=== PATIENT | female | born 1965 | race Caucasian/White ===

== ENCOUNTER → 2018-06-11 09:52 | Outpatient (CLI) | payer BC, SELFPAY ==
[2018-06-11 11:04] LABS: Absolute Lymphocyte Count 1.72 X10^3/ul (0.83-4.51); Absolute Neutrophil Count 4.9 X10^3/uL (2.0-7.7); Basophil# 0.05 X10^3/uL; Basophil% 0.7 % (0-1); Eosinophil# 0.11 X10^3/uL; Eosinophils% 1.5 % (0-5); Hematocrit 45.3 % (37-47); Lymphocyte # 1.72 X10^3/ul (4.0); Lymphocyte % 23.2 % (19-41); Mean Corp Hgb Conc 33.1 g/gl (32-36); Mean Corpuscular Hgb 30.7 pg (27.0-32.0); Mean Corpuscular Volume 92.8 fL (81-99); Monocyte# 0.61 X10^3/uL; Monocyte% 8.2 % (0-10); Neutrophil % 66.3 % (47-70); Platelet Count 162 K/mm3 (150-450); RBC Distribution Width SD 46.3 fl (35.1-43.9); Red Blood Count 4.88 M/mm3 (4.2-5.4); White Blood Count 7.4 K/mm3 (4.4-11.0)
[2018-06-11 11:12] LABS: POSITIVE COUNT NO; POSITIVE DIFFERENTIAL NO; POSITIVE MORPHOLOGY NO
[2018-06-11 11:34] LABS: Anion Gap 3 (5-15); BUN 16 mg/dL (7-18); BUN/Creat Ratio 17.3 RATIO (10-20); Calcium,Total 8.6 mg/dL (8.5-10.1); Chloride 104 mmol/L (98-107); Cholesterol 201 mg/dL (200); Creatinine, Serum 0.92 mg/dL (0.55-1.02); EST Glomerular Filtration Rate 67 mL/min (>60); Est Glom Filt Rate - Afr Amer 81 mL/min (>60); Glucose 131 mg/dL (74-106); High Density Lipoprotein 43 mg/dL; Potassium 3.8 mmol/L (3.5-5.1); Sodium Level 140 mmol/L (136-145); Triglycerides 150 mg/dL; Very Low Density Lipoprotein 30 mg/dL (5-40)
== END ==
PROVIDERS: Family Provider Family Medicine; PCP Family Medicine; Referring Provider Family Medicine; Visit Provider Family Medicine
DX: K29.70 Gastritis, unspecified, without bleeding (principal); E03.9 Hypothyroidism, unspecified; Z13.220 Encounter for screening for lipoid disorders
CPT/HCPCS: 36415; 80048; 80061; 84443; 85025

== ENCOUNTER → 2018-12-10 09:10 | Outpatient (CLI) | payer BC, SELFPAY ==
[2018-12-10 10:17] LABS: Hematocrit 46.5 % (37-47); Hemoglobin 15.2 g/dl (12.0-15.0); Mean Corp Hgb Conc 32.7 g/gl (32-36); Mean Corpuscular Hgb 29.9 pg (27.0-32.0); Mean Corpuscular Volume 91.5 fL (81-99); Mean Platelet Vol. 12.9 fl (6.2-12.0); Platelet Count 222 K/mm3 (150-450); RBC Distribution Width CV 13.9 % (11.6-14.6); RBC Distribution Width SD 46.2 fl (35.1-43.9); Red Blood Count 5.08 M/mm3 (4.2-5.4); White Blood Count 8.6 K/mm3 (4.4-11.0)
[2018-12-10 10:19] LABS: Scan Indicated on CBC? Y/N NO
== END ==
PROVIDERS: Family Provider Family Medicine; PCP Family Medicine; Referring Provider Family Medicine; Visit Provider Family Medicine
DX: K29.70 Gastritis, unspecified, without bleeding (principal)
CPT/HCPCS: 36415; 85027

== ENCOUNTER → 2018-12-16 14:27 | Outpatient (CLI) | payer BC, SELFPAY ==
[2018-12-16 17:00] LABS: Anion Gap 5 (5-15); BUN 14 mg/dL (7-18); BUN/Creat Ratio 18.7 RATIO (10-20); Calcium,Total 8.7 mg/dL (8.5-10.1); Chloride 107 mmol/L (98-107); Cholesterol 191 mg/dL (200); Creatinine, Serum 0.75 mg/dL (0.55-1.02); EST Glomerular Filtration Rate 86 mL/min (>60); Est Glom Filt Rate - Afr Amer 103 mL/min (>60); Free T3 2.5 pg/mL (2.18-3.98); Glucose 65 mg/dL (74-106); High Density Lipoprotein 35 mg/dL; Sodium Level 141 mmol/L (136-145); Thyroid Stim Hormone (TSH) 3.69 uIU/mL (0.358-3.74); Triglycerides 217 mg/dL; Very Low Density Lipoprotein 43 mg/dL (5-40)
[2018-12-16 17:40] LABS: Vitamin D,25 Hydroxy 11.1 ng/mL (29.95-100.01)
== END ==
PROVIDERS: Family Provider Family Medicine; PCP Family Medicine; Referring Provider Family Medicine; Visit Provider Family Medicine
DX: Z00.00 Encounter for general adult medical examination without abnormal findings (principal); E03.9 Hypothyroidism, unspecified
CPT/HCPCS: 36415; 80048; 80061; 82306; 84436; 84443; 84481

== ENCOUNTER 2019-05-10 07:56 | Observation (INO) | payer SELFPAY ==
[2019-05-10] VITALS (8 sets, daily range): BP systolic 103–148; BP diastolic 61–86; PULSE 74–98; RESP 13–22; TEMP 36.7–36.8; O2SAT 95–98; BMI 26.4; BMI 23.8; BMI 23.9
--- NOTE | 2019-05-10 08:22 | EKG12_ITS ---
Test Reason : CP Blood Pressure : / mmHG Vent. Rate : 082 BPM Atrial Rate : 082 BPM P-R Int : 154 ms QRS Dur : 078 ms QT Int : 374 ms P-R-T Axes : 066 072 081 degrees QTc Int : 436 ms Normal sinus rhythm Possible Anterior infarct , age undetermined Abnormal ECG Confirmed by MARYBETH LAMBERT ([id number]), script editor DARLYN PRESLEY ([id number]) on 05/15/2019 2:50:19 PM Referred By: Cezar Cason Confirmed By:MARYBETH LAMBERT
--- NOTE | 2019-05-10 08:22 | ED.VIS.CHEST ---
History of Present Illness Chief Complaint: Chest Pain Informant: Patient Narrative: Patient presented for evaluation secondary to chest pain. Patient reports that since about midnight tonight she has been dealing with chest pain. She describes it as a heaviness type sensation. It has been persistent, and had some relief around 8 AM, but is still going on. Patient states that associated with feelings of shortness of breath and lightheadedness as well as sweatiness. She is never really had any prior similar episodes in the past. Patient has a family history of premature cardiac disease and a personal history of smoking. She denies any history of hypertension hyperlipidemia or diabetes. She denies any DVT or PE risk factors. She is never had a stress test or heart catheterization. Review of systems otherwise negative. Past Medical History - Allergies and Home Meds Allergies/Adverse Reactions: Allergies No Known Allergies Allergy (Verified 05/10/19 07:56) Primary Care Physician: Luciano Gonzalez MD [Primary Care Provider] - Past Medical History: None Smoking Status: Current every day smoker Review of Systems All systems negative except as indicated Cardiovascular: Reports: Chest pain Respiratory: Reports: Dyspnea, Cough Gastrointestinal: Reports: Nausea Physical Exam Vital Signs/Narrative: Vital Signs Temp Pulse Resp BP Pulse Ox 05/10/19 07:58 98.2 F 98 22 H 148/86 H 98 Inital Vital Signs reviewed: Yes General: Well nourished, Well developed, No Acute Distress Head: Normocephalic, Atraumatic Eyes: Perrl, EOMI ENT: Moist mucous membranes, No rhinorrhea Neck: Supple, Nontender Cardiovascular: Regular rate, Regular rhythm, No murmurs Respiratory: No distress, CTA bilaterally, Chest nontender Abdomen: Soft, Nontender, Nondistended, Normal bowel sounds Back: Nontender, Normal Inspection Extremities: Nontender, No edema Skin: Normal color, No rash Neurological: Alert, Oriented x3, Cranial nerves II-XII grossly intact, Normal Strength, Normal Sensation Psychological: Normal affect, Normal Mood Diagnostic/Tx/Re-eval Chest X-Ray - ED: - - PA and lateral chest x-ray negative by my personal interpretation as well as radiology - EKG Initial EKG Interpretation: - - Sinus rhythm of [address] segments, normal T waves, anterior Q waves are noted, no evidence of acute ischemia or arrhythmia. - Medical Decision Making Patient presented secondary to chest pain. Work-up was obtained. CBC chemistry and troponin were found to be unremarkable. EKG and chest x-ray were found to be unremarkable. Patient's pain did improve with nitroglycerin. Her heart score is a 4, I believe that she requires admission. I discussed this with the hospitalist and the patient was admitted. ED Disposition - Plan for ED Patient: Disposition: Acute Care Hospital [facility] Diagnosis: Chest pain
--- NOTE | 2019-05-10 08:24 | NURSING ---
NO OLD EKGS
[2019-05-10 08:37] LABS: Absolute Lymphocyte Count 2.07 X10^3/uL (0.83-4.51); Absolute Neutrophil Count 4.2 X10^3/uL (2.0-7.7); Basophil# 0.06 X10^3/uL; Basophil% 0.8 % (0-1); Eosinophil# 0.13 X10^3/uL; Eosinophils% 1.8 % (0-5); Hematocrit 49.7 % (37-47); Hemoglobin 16.5 g/dL (12.0-15.0); Lymphocyte # 2.07 X10^3/ul (4.0); Lymphocyte % 28.9 % (19-41); Mean Corp Hgb Conc 33.2 g/dL (32-36); Mean Corpuscular Hgb 29.9 pg (27.0-32.0); Mean Corpuscular Volume 90.2 fL (81-99); Mean Platelet Vol. 12.4 fl (6.2-12.0); Monocyte# 0.73 X10^3/uL; Monocyte% 10.2 % (0-10); NRBC Flagged by Analyzer 0 % (0-5); Neutrophil # 4.15 X10^3/uL (2.7-7.7); Neutrophil % 57.9 % (47-70); Platelet Count 204 K/mm3 (150-450); RBC Distribution Width SD 46.5 fl (35.1-43.9); Red Blood Count 5.51 M/mm3 (4.2-5.4); White Blood Count 7.2 K/mm3 (4.4-11.0)
--- NOTE | 2019-05-10 08:40 | RAD_ITS ---
STUDY: X-RAY CHEST REASON FOR EXAM: Female, 54 years old. Chest pain. TECHNIQUE: PA and lateral views of the chest. COMPARISON: None. FINDINGS: EKG electrodes are seen. Hyperinflation. The lungs are clear. Pectus excavatum deformity. There is no demonstrated pleural abnormality. Normal size heart. Normal mediastinum and jack. Normal visualized pulmonary arteries. Normal visualized aortic arch and descending thoracic aorta. Normal visualized thoracic spine. Prior fusion in the lower cervical spine. There is no demonstrated abnormality of the visualized soft tissue structures of the upper abdomen. RAD/Chest PA and Lateral IMPRESSION: Hyperinflation. The lungs are clear. Electronically Signed: Rogelio Rogers, at 9:09 EDT , Service support ,
[2019-05-10 08:50] LABS: Anion Gap 6 (5-15); BUN 11 mg/dL (7-18); BUN/Creat Ratio 11.9 RATIO (10-20); Calcium,Total 9.3 mg/dL (8.5-10.1); Chloride 109 mmol/L (98-107); Creatinine, Serum 0.92 mg/dL (0.55-1.02); EST Glomerular Filtration Rate 67 mL/min (>60); Est Glom Filt Rate - Afr Amer 81 mL/min (>60); Estimated Creatinine Clearance 57.15 ml/min; Glucose 123 mg/dL (74-106); Potassium 4.2 mmol/L (3.5-5.1); Sodium Level 143 mmol/L (136-145)
[2019-05-10] MEDS: Aspirin 81 MG TAB.CHEW 324 MG PO (08:55)
[2019-05-10] MEDS: Nitroglycerin SL (ED/IMG/CATH) 0.4 MG TABLET SUBLINGUAL ×3 (08:55→09:19)
--- NOTE | 2019-05-10 09:35 | NURSING ---
DR PINON IN ER
--- NOTE | 2019-05-10 09:50 | NURSING ---
SCOOTERU OBS KAMALJIT PINON
--- NOTE | 2019-05-10 09:53 | ED.RN ---
dr. voss in at bedside examining pt. waiting for floor and admission orders.
--- NOTE | 2019-05-10 10:25 | EKG12_ITS ---
Test Reason : ACID/INDIGESTION Blood Pressure : / mmHG Vent. Rate : 064 BPM Atrial Rate : 064 BPM P-R Int : 182 ms QRS Dur : 066 ms QT Int : 398 ms P-R-T Axes : 042 046 064 degrees QTc Int : 410 ms Normal sinus rhythm Possible Anteroseptal infarct , age undetermined Abnormal ECG When compared with ECG of 10-MAY-2019 10:41, MANUAL COMPARISON REQUIRED, DATA IS UNCONFIRMED Confirmed by ISAIAH KABA, KARI ([id number]), editorial clerk DARLYN PRESLEY ([id number]) on 05/15/2019 3:15:47 PM Referred By: Cezar Cason Confirmed By:KHLOE COLON MD
[2019-05-10] MEDS: Levothyroxine 88 MCG Tablet PO (10:48)
[2019-05-10] MEDS: Morphine 4 MG/ML Syringe IV (10:48)
[2019-05-10] MEDS: 0.9% NaCl Peripheral Flush Adult/Peds IV ×2 (10:50→16:46)
[2019-05-10] MEDS: Clindamycin HCl 150 MG Capsule 300 MG PO ×4 (11:34→21:40)
--- NOTE | 2019-05-10 20:17 | PCM.HP.STD ---
Problem List (1) Chest pain Status: Acute Qualifiers: Chest pain type: precordial pain Qualified Code(s): R07.2 - Precordial pain History of Present Illness Date of Admission: 05/10/19 Chief Complaint: Chest pain The patient is a 54 year old F who was seen in the emergency room at [facility] today with chief complaint of chest pain which she describes as pressure-like in nature radiating into her right jaw area that started just after midnight on 05/10/2019. Patient tells this examiner that the chest discomfort is been continuous although it lessens somewhat when she was given nitroglycerin in the emergency room today. Patient denies any shortness of breath, she does admit to a cough with clear sputum production, she denies any fever or chills. Work-up in the emergency room included a chest x-ray which was unremarkable, patient's cardiac enzymes were unremarkable, EKG showed a normal sinus rhythm without evidence of ischemic changes, labs were remarkable for hemoglobin is 16.5. Patient will be placed in observation status for chest pain, cardiac enzymes will be cycled and she will be monitored on telemetry. If enzymes remain normal, she will undergo a nuclear exercise stress test tomorrow. 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 Lives: Spouse/ Significant Other Smoking Status: Current every day smoker Tobacco Use: Cigarettes Alcohol: Occasional Drugs: None - *Family History Maternal History Items: Diabetes, Heart Disease Paternal History Items: COPD Review of Systems Constitutional: Denies: Anorexia, Chills, Fever, Night Sweats, Malaise, Weakness, Weight Change, Fatigue Eyes: Denies: Cataracts, Conjunctivae Inflammation, Double vision, Drainage HEENT: Denies: Difficulty Swallowing, Dysphasia, Ear Pain, Eye Pain, Hearing Changes, Nasal bleeding, Nasal Congestion, Post Nasal Drip Cardiovascular: Reports: Chest Pain, Chest Pressure. Denies: Claudication, Chest Tightness, Edema, Heaviness, Orthopnea, Palpitations, Paroxysmal Noc. Dyspnea Respiratory: Denies: Cough, Hemoptysis, Pleuritic Pain, Shortness of Breath, Shortness of breath at rest, Shortness of breath upon exertion Gastrointestinal: Denies: Abdominal Pain, Constipation, Diarrhea, Hematemesis, Hematochezia, Nausea, Melena, Vomiting Genitourinary: Denies: Dysuria, Frequency, Hematuria, Hesitancy, Urgency Gynecological: Denies: Breast symptoms Musculoskeletal: Denies: Back Pain, Foot Pain, Hand Pain, Joint Pain, Joint stiffness, Joint swelling, Joint Tenderness, Leg Pain Skin: Denies: Dryness, Jaundice, Pruritis, Rash Neurological: Denies: Blurred vision, Double vision, Slurred speech, Difficulty swallowing, Focal weakness, Numbness, Tingling Psychiatric: Denies: Anxiety, Depression, Homicidal Ideations, Suicidal Ideations Endocrine: Denies: Change in Body Habitus, Heat/ Cold Intolerance, Polydipsia, Polyuria Hematologic/ Lymphatic: Denies: Adenopathy, Anemia, Easy Bruising, Easy Bleeding, Petechiae, Purpura VTE Information - Inpt Only VTE Present on Admission: No VTE Mechan Device Prophylaxis: None VTE Pharm Prophylaxis ordered?: Yes - Physical Exam General: Alert, Oriented x3, Cooperative HEENT: Atraumatic, PERRLA, EOMI, Normocephalic Oral: Moist Mucosa Neck: Supple, No JVD, Negative Carotid Bruits Lungs: Clear to auscultation, Normal air movement Cardiovascular: Regular rate, No murmurs Abdomen: Bowel Sounds Present, Soft, Non Tender, Non-Distended Extremities: No clubbing, No cyanosis, No edema, Capillary Refill Less than 3 Seconds Skin: No rashes, No breakdown Musculoskeletal: No Tenderness to Palpation of Joints or Extremities Neurological: Cranial nerves II-XII grossly intact, Neuro grossly intact, Sensory exam intact to light touch and pain, Coordination normal Psych/Mental Status: Normal Affect, Appropriate, Alert and oriented to time, place, person, mood and affect Vital Signs Temp Pulse Resp BP Pulse Ox 98.1 F 74 16 112/61 97 05/10/19 16:10 05/10/19 19:00 05/10/19 16:10 05/10/19 16:10 05/10/19 16:10 Oxygen Flow Rate (L/min) 2 Oxygen Delivery Method Room Air Weight: 61.1 kg Body Mass Index (BMI) 23.8 Intake and Output for Last 24 Hours 05/08/19 05/09/19 05/10/19 23:59 23:59 23:59 Intake Total 720 / 720 Balance 720 / 720 Laboratory Tests Past 24 Hrs 05/10/19 05/10/19 05/10/19 08:10 08:10 11:15 WBC 7.2 RBC 5.51 H Hgb 16.5 H Hct 49.7 H MCV 90.2 MCH 29.9 MCHC 33.2 RDW Std Deviation 46.5 H RDW Coeff of Joellen 14.0 Plt Count 204 MPV 12.4 H Immature Gran % (Auto) 0.400 Neut % (Auto) 57.9 Lymph % (Auto) 28.9 [place] % (Auto) 10.2 H Eos % (Auto) 1.8 Baso % (Auto) 0.8 Absolute Neuts (auto) 4.2 Absolute Lymphs (auto) 2.07 Nucleated RBC % 0 Sodium 143 Potassium 4.2 Chloride 109 H Carbon Dioxide 28.0 Anion Gap 6 BUN 11 Creatinine 0.92 Estim Creat Clear Calc 57.15 Est GFR (MDRD) Af Amer 81 Est GFR (MDRD) Non-Af 67 BUN/Creatinine Ratio 11.9 Glucose 123 H Calcium 9.3 Troponin I < 0.015 < 0.015 05/10/19 14:13 WBC RBC Hgb Hct MCV MCH MCHC RDW Std Deviation RDW Coeff of Joellen Plt Count MPV Immature Gran % (Auto) Neut % (Auto) Lymph % (Auto) [place] % (Auto) Eos % (Auto) Baso % (Auto) Absolute Neuts (auto) Absolute Lymphs (auto) Nucleated RBC % Sodium Potassium Chloride Carbon Dioxide Anion Gap BUN Creatinine Estim Creat Clear Calc Est GFR (MDRD) Af Amer Est GFR (MDRD) Non-Af BUN/Creatinine Ratio Glucose Calcium Troponin I < 0.015 Assessment/Plan All Active Problems Chest pain (Acute) #1 chest pain-etiology unclear at this point, patient will be placed in observation status on PCU, serial enzymes will be drawn, if these enzymes are negative patient will undergo an exercise nuclear stress test the following day. #2 hypothyroidism #3 recent sinus infection-present on admission, on outpatient antibiotic treatment Code Visit OBSV E&M: 87105 Initial observation care L3
--- NOTE | 2019-05-10 20:50 | EKG12_ITS ---
Test Reason : CP Blood Pressure : / mmHG Vent. Rate : 073 BPM Atrial Rate : 073 BPM P-R Int : 180 ms QRS Dur : 062 ms QT Int : 386 ms P-R-T Axes : 074 070 077 degrees QTc Int : 425 ms Normal sinus rhythm Anteroseptal infarct , age undetermined Abnormal ECG When compared with ECG of 10-MAY-2019 08:01, MANUAL COMPARISON REQUIRED, DATA IS UNCONFIRMED Confirmed by ISAIAH KABA, KARI ([id number]), editor trade journal DARLYN PRESLEY ([id number]) on 05/15/2019 3:16:51 PM Referred By: Cezar Cason Confirmed By:KHLOE COLON MD
[2019-05-10] MEDS: Mag Hydrox/Al Hydrox/Simeth 30 ML UDC PO (21:40)
[2019-05-11 03:00] VITALS: PULSE 82
[2019-05-11 03:40] VITALS: BP 116/69; PULSE 82; RESP 16; TEMP 36.6; O2SAT 93
[2019-05-11 05:00] VITALS: BP 117/73; PULSE 75; RESP 16; TEMP 36.8; O2SAT 93
--- NOTE | 2019-05-11 05:55 | EKG12_ITS ---
Test Reason : AM EKG Blood Pressure : / mmHG Vent. Rate : 071 BPM Atrial Rate : 071 BPM P-R Int : 192 ms QRS Dur : 070 ms QT Int : 386 ms P-R-T Axes : 074 044 061 degrees QTc Int : 419 ms Normal sinus rhythm Anteroseptal infarct , age undetermined Abnormal ECG When compared with ECG of 10-MAY-2019 21:11, MANUAL COMPARISON REQUIRED, DATA IS UNCONFIRMED Confirmed by ISAIAH KABA, KARI ([id number]), book editor DARLYN PRESLEY ([id number]) on 05/15/2019 3:13:59 PM Referred By: Cezar Cason Confirmed By:KHLOE COLON MD
[2019-05-11] MEDS: Levothyroxine 88 MCG Tablet PO (05:56)
[2019-05-11 09:03] VITALS: PULSE 86
--- NOTE | 2019-05-11 10:14 | STRESSREP_ITS ---
Stress Test Report Date: May 11, 2019 Procedure: Exercise tolerance test/imaging study Indications: Chest pain Consent: Per the patient Procedure: The patient exercised on a Chase protocol for 7 minutes and 9 seconds achieving a peak heart rate of 142 bpm (86 % predicted maximal heart rate) with a peak blood pressure 122/76 mmHg and a peak MET capacity of 8.7 METs. The baseline ECG demonstrated normal sinus rhythm, possible prior anterior DC. The peak exercise ECG demonstrated no significant ischemic changes. EKG during recovery revealed no significant ischemic changes [There were no cardiac dysrhythmias pretest, during exercise, or recovery]. The functional capacity was considered normal for age. There was [no complaint of chest discomfort during exercise or recovery]. The examination was discontinued secondary to dyspnea, leg discomfort. Impression: 1. Technically adequate (percent predicted maximal heart rate greater than 85%) exercise tolerance test 2. Stress test is negative for exercise-induced EKG changes of ischemia 3. The test test is negative for exercise-induced chest pain 4. Functional capacity is normal for age 5. Nuclear images pending Myocardial perfusion imaging study: Technique: The patient was injected with 11.1 mCi of technetium 99m Cardiolite and subsequently rest SPECT Cardiolite nuclear imaging was obtained in the horizontal long, vertical long, and short axis views. The patient exercised on a Chase protocol. Please see above for details. The patient was injected with 32.3 mCi of technetium 99m Cardiolite and subsequently stress SPECT Cardiolite nuclear imaging was obtained in the horizontal long, vertical long, and short axis views. A gated Cardiolite study at peak stress was obtained. Interpretation: Rest and stress SPECT Cardiolite nuclear imaging status post realignment, normalization, and attenuation correction, demonstrates normal myocardial radioisotope uptake on the rest and stress images. The gated Cardiolite study demonstrates no significant regional wall motion abnormalities. The reported LVEF is greater than 70 %. Impression: 1. There is no evidence of significant ischemia or infarction. 2. The gated Cardiolite study reports an LVEF of greater than 70 %. This note was generated with [employer] software. It may contain incorrect words, spelling, and punctuation that were not noted in checking the note before signing.
[2019-05-11] MEDS: Clindamycin HCl 150 MG Capsule 300 MG PO (10:40)
--- NOTE | 2019-05-11 10:53 | CASEMGMT ---
ANGELIC met with patient as she is self pay. She has not applied for Medicaid as she does not qualify. She still sees Dr Gonzalez with [facility]. She is on medications, but she has been able to afford them as they are $4. ANGELIC gave her information on [employer] and [facility] Murillo. Eliana COOK MSW
[2019-05-11 10:59] VITALS: BP 122/78; PULSE 69; RESP 16; TEMP 36.8; O2SAT 94
--- NOTE | 2019-05-11 11:49 | DCINST_ITS ---
- Discharge Diagnoses Current Active Problems: Current Active and Chronic Problems Chest pain (Acute) You will use the following diet at home:: No restrictions Your food should be the consistency of: Regular Your liquids should be the consistency of: Regular/Thin Discharge Activity: Return to Normal Activity Weight Bearing Status: Full weight bearing Allergies/Adverse Reactions: Allergies No Known Allergies Allergy (Verified 05/10/19 07:56) Medications to take at Discharge Clindamycin [Cleocin] 300 mg PO 4X/DAY 05/10/19 Levothyroxine [Synthroid] 88 mcg PO DAILY 05/10/19 Primary Care Physician: Luciano Gonzalez MD [Primary Care Provider] - Please follow up with your Primary Care Physician in: in 1-2 weeks Test Results: Test results from this visit will be discussed in further detail at your follow- up appointment, if applicable.
--- NOTE | 2019-05-11 12:49 | NURSING ---
Reviewed and agreed on charting with Brook Aguilar RN
--- NOTE | 2019-05-18 13:43 | DS.PCM_ITS ---
Discharge Date and Diagnosis Date of Admission: 05/10/19 Date of Discharge: 05/11/19 - Primary Discharge Diagnosis #1 musculoskeletal chest pain #2 hypothyroidism Hospital Course and Treatment Operations: None Procedures: Nuclear stress test Summary of Care Provided: The patient is a 54 year old F seen in the emergency room at [facility] with chief complaint of chest discomfort which she described as pressure-like in nature. Work-up in the emergency room included a chest x-ray which was unremarkable, cardiac enzymes which were also unremarkable, EKG was performed showed a normal sinus rhythm without ischemic changes, and labs were remarkable for hemoglobin of 16.6. Patient was placed in observation status on PCU, cardiac enzymes were cycled and these remain normal. On 05/11/2019, patient underwent a nuclear stress test which was negative for reversible ischemia. On 05/11/2019, patient was seen and examined: On examination she appeared in good health and spirits. Vital signs as documented. Skin warm and dry and without overt rashes. Neck without JVD. Lungs clear. Heart exam notable for regular rhythm, normal sounds and absence of murmurs, rubs or gallops. Abdomen unremarkable and without evidence of organomegaly, masses, or abdominal aortic enlargement. Extremities nonedematous. Neuro: Cranial nerves II through XII are grossly intact, no focal motor deficits were noted, sensation to light touch and pinprick is intact. Psych: Patient is alert and oriented x3, she does not appear anxious or depressed On 05/11/2019, patient was seen and examined and felt in stable condition for discharge home. - Physical Exam Vital Signs Temp Pulse Resp BP Pulse Ox 98.3 F 69 16 122/78 H 94 05/11/19 10:59 05/11/19 10:59 05/11/19 10:59 05/11/19 10:59 05/11/19 10:59 Oxygen Flow Rate (L/min) 2 Oxygen Delivery Method Room Air Weight: 61.1 kg Body Mass Index (BMI) 23.8 Discharge Activity: Return to Normal Activity Weight Bearing Status: Full weight bearing Home Medications: Medications to take at Discharge Clindamycin [Cleocin] 300 mg PO 4X/DAY 05/10/19 Levothyroxine [Synthroid] 88 mcg PO DAILY 05/10/19 Primary Care Physician: Luciano Gonzalez MD [Primary Care Provider] - Please follow up with your Primary Care Physician in: in 1-2 weeks Disposition: Home Minutes spent on discharge:: 30 Patient Condition:: Stable Medical Necessity - Tobacco Use Smoking Status: Current every day smoker Tobacco Use: Cigarettes Meaningful Use Info Meaningful Use Diagnoses (Choose all that apply): None applicable Code Visit OBSV E&M: 46306 Observation care discharge
== END 2019-05-11 12:43 | disposition home or self-care (01) ==
LOC: ED 09:47 → PCU 10:02
PROVIDERS: Hospitalist; Admitting Provider Internal Medicine; Emergency Provider Emergency Medicine; Family Provider Family Medicine; PCP Family Medicine; Referring Provider Internal Medicine; Visit Provider Internal Medicine
DX: R07.89 Other chest pain (principal); R42 Dizziness and giddiness; R06.02 Shortness of breath; R06.00 Dyspnea, unspecified; Z79.899 Other long term (current) drug therapy; F17.210 Nicotine dependence, cigarettes, uncomplicated; E03.9 Hypothyroidism, unspecified
CPT/HCPCS: 36415; 71046; 78452; 80048; 84484; 85025; 93005; 93017; 96374; 99218; 99285; A9500; A4216; G0378

== ENCOUNTER → 2021-01-02 15:53 | Outpatient (CLI) | payer OTHER, SELFPAY ==
[2019-05-10 10:32] VITALS: BMI 23.8
[2021-01-02 18:30] LABS: Anion Gap 6 (5-15); BUN 15 mg/dL (7-18); BUN/Creat Ratio 17.6 RATIO (10-20); Calcium,Total 8.9 mg/dL (8.5-10.1); Chloride 104 mmol/L (98-107); Cholesterol 253 mg/dL (200); Creatinine, Serum 0.85 mg/dL (0.55-1.02); EST Glomerular Filtration Rate 73 mL/min (>60); Est Glom Filt Rate - Afr Amer 88 mL/min (>60); Free T3 1.6 pg/mL (2.18-3.98); Glucose 115 mg/dL (74-106); High Density Lipoprotein 40 mg/dL; Potassium 3.4 mmol/L (3.5-5.1); Sodium Level 139 mmol/L (136-145); T4 Free Direct 0.55 ng/dL (0.76-1.46); Triglycerides 457 mg/dL
== END ==
PROVIDERS: PCP Family Medicine; Referring Provider Family Medicine; Visit Provider Family Medicine
DX: Z00.00 Encounter for general adult medical examination without abnormal findings (principal); E03.9 Hypothyroidism, unspecified
CPT/HCPCS: 36415; 80048; 80061; 84439; 84443; 84481

== ENCOUNTER → 2021-02-14 14:58 | Outpatient (CLI) | payer OTHER, SELFPAY ==
[2019-05-10 10:32] VITALS: BMI 23.8
--- NOTE | 2021-02-14 15:01 | RAD_ITS ---
STUDY: X-RAY - LUMBAR SPINE REASON FOR EXAM: Female, 56 years old. BACK PAIN TECHNIQUE: 5 view(s) of the lumbar spine were obtained. COMPARISON: None FINDINGS: Normal lumbar lordosis. There is no substantial scoliosis. There is a normal alignment of the vertebrae. Normal vertebral bodies and endplates. Normal disc space heights. The soft tissue structures are unremarkable. RAD/L/S Spine Min 4 Views IMPRESSION: Normal x-ray examination of the lumbar spine. Electronically Signed: Eugene Rascon MD at 12:21 EDT Tel , Service support ,
== END ==
PROVIDERS: PCP Family Medicine; Referring Provider Family Medicine; Visit Provider Family Medicine
DX: M54.9 Dorsalgia, unspecified (principal)
CPT/HCPCS: 72110

== ENCOUNTER 2021-09-15 09:41 | Outpatient (CLI) | payer OTHER, SELFPAY ==
--- NOTE | 2021-09-15 09:45 | RAD_ITS ---
STUDY: X-RAY - LUMBAR SPINE REASON FOR EXAM: Female, 56 years old. BACK PAIN TECHNIQUE: 5 view(s) of the lumbar spine were obtained. COMPARISON: Comparison is made with prior study dated 02/14/2021. FINDINGS: There is straightening of the normal lumbar lordosis. There is no substantial scoliosis. There is a normal alignment of the vertebrae. Normal vertebral bodies and endplates. Normal disc space heights. The soft tissue structures are unremarkable. RAD/L/S Spine Min 4 Views IMPRESSION: Straightening of the normal lumbar lordosis. Electronically Signed: Rogelio Rogers MD at 15:24 EST , Service support ,
== END 2021-09-15 23:59 | disposition short-term general hospital (02) ==
LOC: MTRAD 09:42
PROVIDERS: PCP Family Medicine; Referring Provider Family Medicine; Visit Provider Family Medicine
DX: M54.9 Dorsalgia, unspecified (principal)
CPT/HCPCS: 72110

== ENCOUNTER → 2022-04-09 | Outpatient (CLI) | payer OTHER, SELFPAY ==
[2022-04-09 18:50] LABS: Free T3 2.2 pg/mL (2.18-3.98); T4 Free Direct 1.21 ng/dL (0.76-1.46); Thyroid Stim Hormone (TSH) 6.02 uIU/mL (0.358-3.74)
== END | disposition home or self-care (01) ==
PROVIDERS: PCP Family Medicine; Visit Provider Family Medicine
DX: E03.9 Hypothyroidism, unspecified (principal)
CPT/HCPCS: 36415; 84439; 84443; 84481

== ENCOUNTER → 2022-06-29 | Outpatient (CLI) | payer OTHER, SELFPAY ==
--- NOTE | 2022-06-29 07:53 | CT_ITS ---
STUDY: LOW DOSE CT LUNG CANCER SCREENING REASON FOR EXAM: Female, 57 years old. ACTIVE SMOKER RADIATION DOSAGE (If Supplied By Facility): CTDIvol = ( 2.01 ) mGy, DLP = ( 57.41 ) mGycm TECHNIQUE: No contrast was administered. Low dose technique was utilized (average mAS-38 and kVp 120). 1.25 mm axial source images with a slice interval of 1.25-mm were reconstructed in lung windows. 2.5 mm axial source images with a slice interval of 2.5-mm were reconstructed in lung windows. 5.0 mm axial source images with a slice interval of 5.0-mm were reconstructed in soft tissue windows. COMPARISON: None. NODULES: No suspicious nodules are seen. Emphysema: Hyperinflation. Emphysematous changes with bullous formation in the upper lobes more prominent on the right side. Findings suggestive of scarring at both lung apices. Mild increased linear markings at the lung bases as well as along the medial aspect of both the right middle lobe and lingular segment of the left upper lobe. This is suggestive of scarring. Endobronchial lesion: None Aorta: Minimal atherosclerotic plaque formation of the aortic arch and origin of the right brachiocephalic artery. CORONARY ARTERIES: Coronary artery calcification is not seen. Heart: Unremarkable Pulmonary artery: Unremarkable Mediastinal nodes: Small benign-appearing mediastinal lymph nodes. Other chest and abdominal findings: CT/Low Dose CT Lung Screening IMPRESSION: Lung-RADS category 2 - Continue annual screening with LDCT in 12 months. IMPORTANT NOTES FOR USE: ACR Lung-RADS Version 1.1 Assessment Categories Release Date: 2018 Category: Coded 0-4 bases on nodule(s) with highest degree of suspicion. Negative screen is defined as categories 1 and 2; a positive screen is defined as categories 3 and 4. Category 3 and 4A nodules that are unchanged on interval CT should be coded as category 2, and individuals returned to screening in 12 months. Category 4X: Category 3 or 4 nodules with additional imaging findings that increase the suspicion of lung cancer, such as spiculation, GGN that doubles in size in 1 year, enlarged lymph notes, etc. Category Modifiers: S (significant finding unrelated to lung cancer) Electronically Signed: Rogelio Rogers MD at 12:57 EDT ,
--- NOTE | 2022-06-29 07:54 | ART_ITS ---
Reason For Study: Leg pain Procedure A bilateral lower extremity continuous wave Doppler with analog waveform analysis,segmental pressures,and ankle brachial indexes with exercise. Left Segmental Pressures Left brachial= 128mmHg. Left posterior tibial artery = 158mmHg. Left dorsalis pedis artery = 143mmHg. Left digit = 149 mmHg. The left dorsalis pedis waveforms are triphasic. The left posterior tibial artery waveforms are triphasic. Right Segmental Pressures Right brachial= 128mmHg. Right posterior tibial artery = 162mmHg. Right dorsalis pedis artery = 164mmHg. Right digit = 145 mmHg. The right dorsalis pedis waveforms are triphasic. The right posterior tibial artery waveforms are triphasic. Indices The right ankle brachial index by the dorsalis pedis is 1.28. The right ankle brachial index by the posterior tibial artery is 1.27. The right digital-brachial index is 1.13. The right post exercise ankle brachial index is 0.95. The left ankle brachial index by the dorsalis pedis is 1.12. The left ankle brachial index by the posterior tibial artery is 1.23. The left digital-brachial index is 1.16. The left post exercise ankle brachial index is 0.92. VL/Lower Ext Art Exam w/ Exercise Interpretation Summary Right MARILIA 1.28, normal. TBI and PVR waveforms of the right leg normal at rest. Right lower extremity exhibits an abnormal response to exercise, with post exer cise MARILIA in the mild category Left MARILIA 1.23, normal. TBI and PVR waveforms of the left leg normal at rest. Left lower extremity exhibits an abnormal response to exercise, with post exerc ise MARILIA in the mild category Ordering Physician: Luciano Gonzalez Referring Physician: LUCIANO GONZALEZ MD Performed By: Dominique Carlin RVT
== END | disposition home or self-care (01) ==
LOC: CVS 07:51
PROVIDERS: PCP Family Medicine; Referring Provider Family Medicine; Visit Provider Family Medicine
DX: Z12.2 Encounter for screening for malignant neoplasm of respiratory organs (principal); I70.222 Atherosclerosis of native arteries of extremities with rest pain, left leg; F17.210 Nicotine dependence, cigarettes, uncomplicated; M79.606 Pain in leg, unspecified
CPT/HCPCS: 71271; 93924

== ENCOUNTER → 2022-07-29 | Outpatient (CLI) | payer OTHER, SELFPAY ==
--- NOTE | 2022-07-29 15:40 | MRI_ITS ---
STUDY: MRI LUMBAR SPINE WITHOUT CONTRAST REASON FOR EXAM: Female, 57 years old. pain TECHNIQUE: Standardized fat and water weighted pulse sequences were obtained in the sagittal and axial planes. COMPARISON: Lumbar spine radiograph September 15, 2021 FINDINGS: T12-L1: Normal endplates. Normal disc height, hydration and morphology. Normal bilateral facet joints. Normal central canal and bilateral lateral recesses. Normal bilateral intervertebral neural foramina. Normal lumbar lordosis. There is no substantial scoliosis. Normal conus medullaris that terminates at the L1 level. L1-2: Normal endplates. Normal disc height, hydration and morphology. Normal bilateral facet joints. Normal central canal and bilateral lateral recesses. Normal bilateral intervertebral neural foramina. L2-3: Normal endplates. Normal disc height, hydration and morphology. Normal bilateral facet joints. Normal central canal and bilateral lateral recesses. Normal bilateral intervertebral neural foramina. L3-4: Normal endplates. Normal disc height, hydration and morphology. Normal bilateral facet joints. Normal central canal and bilateral lateral recesses. Normal bilateral intervertebral neural foramina. L4-5: Moderate broad-based left foraminal disc protrusion causing moderately severe narrowing and probable nerve root impingement. The L4 and/or L5 nerve root. Central thecal sac and right neural foramen is patent. L5-S1: Small broad-based posterior disc marginal osteophyte and annular tear. Central canal and neural foramina patent. Normal visualized sacral ala. Normal visualized paraspinous soft tissue structures. MRI/Spine Lumbar (Routine) IMPRESSION: Moderate neural foraminal narrowing at L4-5 with probable nerve root impingement due to a foraminal disc marginal osteophyte. Small bulge and annular tear at L5-S1. Electronically Signed: Carlos Spencer MD at 21:51 EST Reading Location ID and State: [address] [place] [address] , Service support ,
== END | disposition home or self-care (01) ==
PROVIDERS: PCP Family Medicine; Referring Provider Orthopaedic Surgery; Visit Provider Orthopaedic Surgery
DX: M48.061 Spinal stenosis, lumbar region without neurogenic claudication (principal); M54.50 Low back pain, unspecified
CPT/HCPCS: 72148

== ENCOUNTER → 2022-12-18 | Outpatient (CLI) | payer BC, SELFPAY ==
--- NOTE | 2022-12-18 07:16 | MRI_ITS ---
STUDY: MRI CERVICAL SPINE WITHOUT CONTRAST REASON FOR EXAM: Female, 57 years old. Neck pain, H/As, Hx of spinal stenosis TECHNIQUE: Standardized fat and water weighted pulse sequences were obtained in the sagittal and axial planes. COMPARISON: X-ray of the cervical spine dated December 07, 2022 CT of the cervical spine dated June 14, 2014. MRI of the cervical spine dated September 22, 2013 FINDINGS: Normal foramen magnum and brainstem-cervical cord junction. Normal craniovertebral junction. Normal anterior atlantoaxial articulation. Normal odontoid process. There is straightening of the normal cervical lordosis. Anterior cortical plate screw construct and interbody grafts are present at C5, C6, C7. The hardware was not present on the 2013 studies. C2-3: Normal endplates. Mild disc desiccation. Normal disc height and morphology. Normal central canal and right neural foramen. Mild left foraminal stenosis secondary to facet joint hypertrophy. C3-4: Moderate disc space narrowing with a broad-based disc herniation eccentric to the left causing mild mass effect on anterior aspect of the cord and mild central canal stenosis. Severe left foraminal stenosis due to severe facet joint hypertrophy and mild uncovertebral hypertrophy. Mild right foraminal stenosis. C4-5: Normal endplates. Moderate disc space narrowing with broad-based disc herniation contributing to mild central canal stenosis. Mild anterior mass effect on the cord. Severe left foraminal stenosis with nerve root compression due to severe facet joint hypertrophy. Normal right neural foramen. C5-6: Anterior cortical plate screw construct and interbody graft. Osseous fusion across the disc space. No posterior disc herniation or disc osteophyte complex or extrusion. Moderate to severe right foraminal stenosis with nerve root compression due to uncovertebral hypertrophy. Moderate left foraminal stenosis with nerve root compression due to uncovertebral facet joint hypertrophy. C6-7: Anterior cortical plate screw construct and interbody graft. Osseous fusion across the disc space. No posterior disc herniation or disc osteophyte complex or extrusion. Normal right neural foramen. Moderate left foraminal stenosis with nerve root compression due to uncovertebral facet joint hypertrophy. C7-T1: Moderate disc space narrowing and mild diffuse disc bulging. Normal central canal and right neural foramen. Mild left foraminal stenosis secondary to uncovertebral hypertrophy. Normal cervical cord. There is no demonstrated cervical cord syrinx cavity. Normal visualized soft tissue structures. MRI/Spine Cervical (Routine) IMPRESSION: 1. Moderate to severe multilevel foraminal stenosis 2. Mild central canal stenosis with mass effect on the cord at C3-C4 and C4-C5 3. Multilevel degenerative changes, as described above. Electronically Signed: Manuel Medrano MD at 13:21 EDT ,
== END | disposition home or self-care (01) ==
PROVIDERS: PCP Family Medicine; Referring Provider Orthopaedic Surgery; Visit Provider Orthopaedic Surgery
DX: M50.221 Other cervical disc displacement at C4-C5 level (principal)
CPT/HCPCS: 72141

== ENCOUNTER 2022-12-29 20:23 | Emergency (ER) | payer BC, SELFPAY ==
[2022-12-29 20:24] VITALS: BP 140/87; PULSE 89; RESP 15; TEMP 36.8; O2SAT 100; BMI 25.3
--- NOTE | 2022-12-29 20:38 | EKG12_ITS ---
Test Reason : CP Blood Pressure : / mmHG Vent. Rate : 086 BPM Atrial Rate : 086 BPM P-R Int : 202 ms QRS Dur : 066 ms QT Int : 350 ms P-R-T Axes : 079 075 083 degrees QTc Int : 418 ms Confirmed by LIU PATEL MD ([id number]), research editor MADAN LAZO ([id number]) on 12/31/2022 9:08:33 AM Referred By: FARZANA Confirmed By:LIU PATEL MD
--- NOTE | 2022-12-29 20:42 | RAD_ITS ---
INDICATION: chest pain EXAMINATION/TECHNIQUE: X-RAY - XR Chest 1 View COMPARISON: None. FINDINGS: LINES/DEVICES: None. LUNGS: No consolidation, edema or effusion. No pneumothorax. MEDIASTINUM AND CARDIOVASCULAR STRUCTURES: Cardiac silhouette not enlarged. Central airways and mediastinal contour are unremarkable. BONES AND SOFT TISSUES: Surgical fusion of the lower cervical levels. RAD/Chest 1 View (Portable) IMPRESSION: No radiographic evidence of acute cardiopulmonary disease. Electronically Signed: Neto Curiel DO at 22:09 EDT ,
[2022-12-29 21:07] LABS: Absolute Lymphocyte Count 2.65 X10^3/uL (0.83-4.51); Absolute Neutrophil Count 4.2 X10^3/uL (2.0-7.7); Basophil# 0.06 X10^3/uL; Basophil% 0.8 % (0-1); Eosinophils% 1.3 % (0-5); Hematocrit 47.6 % (37-47); Hemoglobin 15.7 g/dL (12.0-15.0); Lymphocyte # 2.65 X10^3/ul (0.83-4.51); Lymphocyte % 33.9 % (19-41); Mean Corpuscular Hgb 30.1 pg (27.0-32.0); Mean Corpuscular Volume 91.4 fL (81-99); Monocyte# 0.78 X10^3/uL; NRBC Flagged by Analyzer 0 % (0-5); Neutrophil # 4.21 X10^3/uL (2.7-7.7); Neutrophil % 53.7 % (47-70); Platelet Count 181 K/mm3 (150-450); RBC Distribution Width CV 13.9 % (11.6-14.6); RBC Distribution Width SD 46.9 fl (35.1-43.9); Red Blood Count 5.21 M/mm3 (4.2-5.4); White Blood Count 7.8 K/mm3 (4.4-11.0)
[2022-12-29 21:25] LABS: Anion Gap 1 (5-15); BUN 13 mg/dL (7-18); BUN/Creat Ratio 14.2 RATIO (10-20); Calcium,Total 9.1 mg/dL (8.5-10.1); Chloride 111 mmol/L (98-107); Creatinine, Serum 0.92 mg/dL (0.55-1.02); EST Glomerular Filtration Rate 67 mL/min (>60); Est Glom Filt Rate - Afr Amer 81 mL/min (>60); Estimated Creatinine Clearance 55.14 ml/min; Glucose 107 mg/dL (74-106); Potassium 4.2 mmol/L (3.5-5.1); Sodium Level 140 mmol/L (136-145); Troponin-I HS (w/2H Reflex) 14 pg/mL (3.0-54.0)
[2022-12-29] MEDS: 0.9% Normal Saline 1,000 ML 150 ML IV (21:50)
[2022-12-29] MEDS: Aspirin 81 MG TAB.CHEW 324 MG PO (21:51)
[2022-12-29 22:04] LABS: Lipase 58 U/L (13-75)
[2022-12-29 22:16] LABS: D-Dimer Quantitative (DVT/PE) 0.33 FEU/ug/m (0.27-0.49)
[2022-12-29 22:26] VITALS: PULSE 78; RESP 15; O2SAT 97
[2022-12-29 22:30] LABS: AST(SGOT) 21 U/L (15-37); Alanine Aminotransfer ALT/SGPT 32 U/L (13-56); Albumin, Serum 3.6 g/dL (3.2-5.0); Alkaline Phosphatase 85 U/L (45-117); Bilirubin, Direct < 0.05 mg/dL (0.00-0.30); Globulin 3.4 g/dL (2.2-4.2)
--- NOTE | 2022-12-29 22:59 | ED.VIS.CHEST ---
HPI History of Present Illness Chief Complaint: Chest Pain Informant: patient Onset/Context/Timing Onset: Days Narrative Narrative: Patient presents secondary to chest pain that has been intermittent for the last week. She states today its been more constant. She points to the lower sternal area describes a burning sensation. She reports shortness of breath only when she is talking a lot. She denies fever, chills, cough, congestion. She denies reflux symptoms. [facility] Medical History Cervical stenosis (uterine cervix) (~2014) delivery delivered (~1990) Foraminal stenosis of cervical region Herniated nucleus pulposus, C4-5 left Hypothyroidism Peripheral arterial disease Spinal stenosis of lumbar region Home Medications aspirin 81 mg tablet,delayed release (Adult Aspirin Regimen) 81 mg PO DAILY 07/14/22 [History Last Taken Unknown] atorvastatin 40 mg tablet 40 mg PO DAILY #30 tabs 07/14/22 [Rx Last Taken Unknown] levothyroxine 100 mcg tablet (Synthroid) 100 mcg PO DAILY 07/14/22 [History Last Taken Unknown] omeprazole 40 mg capsule,delayed release 40 mg PO DAILY #14 caps 12/29/22 [Rx Last Taken Unknown] Allergy/AdvReac Type Severity Reaction Status Date / Time No Known Allergies Allergy Verified 12/29/22 20:28 Family History Other CAD (coronary artery disease) Diabetes Thyroid disorder Surgical History Hx of cervical spine surgery S/P laparoscopic procedure (~2015) Social History Smoking Status: Current every day smoker tobacco type: cigarettes alcohol intake: current alcohol intake frequency: a few times a week ROS ROS ED Constitutional Constitutional ED: Denies chills or fever(s) Eyes Eyes: Denies change in vision or discharge from eye(s) ENT ENT ED: Denies discharge from eye(s), rhinorrhea or sore throat Cardiovascular Cardiovascular: Reports chest pain; Denies palpitations Respiratory/Chest Respiratory/Chest: Reports dyspnea; Denies cough Gastrointestinal Gastrointestinal: Denies abdominal pain, diarrhea, nausea or vomiting Genitourinary Genitourinary ED: Denies dysuria Musculoskeletal Musculoskeletal: Denies back pain or extremity pain Integumentary Denies Abrasions or rash Neurologic Neurologic: Denies headache(s) or weakness Psychiatric Psychiatric: Denies anxiety or depression Allergic/Immunologic Allergic/Immunologic ED: Denies lip swelling or urticaria EXAM Physical Exam Const Vital Signs: 12/29/22 20:24 12/29/22 21:30 12/29/22 21:30 Temperature 98.2 F Temperature Source Temporal Pulse Rate 89 Respiratory Rate 15 Respiratory Effort Short of Breath Blood Pressure 140/87 H Blood Pressure Mean 104 Pulse Ox 100 Oxygen Delivery Method Room Air Room Air 12/29/22 22:26 Temperature Temperature Source Pulse Rate 78 Respiratory Rate 15 Respiratory Effort Blood Pressure Blood Pressure Mean Pulse Ox 97 Oxygen Delivery Method Room Air Positive well nourished and well developed General Appearance ED: well developed HEENT Reports normocephalic and head/scalp atraumatic Eyes PERRL and EOMs intact bilaterally Neck supple Chest Wall inspection of chest normal and palpation of chest normal Resp normal respiratory effort and clear to auscultation bilaterally Cardio regular rate and regular rhythm GI normal to inspection, nondistended, normoactive bowel sounds Palpation: soft Extremity normal to inspection Neuro oriented x3 and no sensory deficits noted Sensorium / Orientation: alert Motor Exam: strength 5/5 throughout Psych mental status grossly normal Skin no rashes or lesions noted Heart Score History: Moderately Suspicious ECG: Normal Age: >45 - <65 years Risk Factors: No Risk Factors Troponin: </= Normal Limit Score: 2 MDM MDM MDM Narrative Medical decision making narrative: Patient given aspirin on arrival. Given the burning sensation in the lower chest she was also given a dose of Protonix. EKG obtained to evaluate for cardiac arrhythmia/ischemia. Chest x-ray obtained to evaluate for acute lung pathology, cardiac size, or mediastinal abnormality. Labwork obtained to evaluate for leukocytosis, anemia, and electrolyte derangement. History & Record Review Additional record(s) reviewed:: Prior inpatient record, Prior ED visit and Prior labs Lab Data Attestation: I reviewed the patient's lab results. Labs: Laboratory Results - last 24 hr 12/29/22 12/29/22 12/29/22 21:00 21:00 21:00 WBC 7.8 RBC 5.21 Hgb 15.7 H Hct 47.6 H MCV 91.4 MCH 30.1 MCHC 33.0 RDW Std Deviation 46.9 H RDW Coeff of Joellen 13.9 Plt Count 181 MPV 12.0 Immature Gran % (Auto) 0.300 Neut % (Auto) 53.7 Lymph % (Auto) 33.9 [place] % (Auto) 10.0 Eos % (Auto) 1.3 Baso % (Auto) 0.8 Absolute Neuts (auto) 4.2 Absolute Lymphs (auto) 2.65 Nucleated RBC % 0 D-Dimer Quant (PE/DVT) Sodium 140 Potassium 4.2 Chloride 111 H Carbon Dioxide 28.0 Anion Gap 1 L BUN 13 Creatinine 0.92 Estim Creat Clear Calc 55.14 Est GFR (MDRD) Af Amer 81 Est GFR (MDRD) Non-Af 67 BUN/Creatinine Ratio 14.2 Glucose 107 H Calcium 9.1 Total Bilirubin 0.30 Direct Bilirubin < 0.05 AST 21 ALT 32 Alkaline Phosphatase 85 Troponin I High Sens 14 Total Protein 7.0 Albumin 3.6 Globulin 3.4 Lipase 12/29/22 12/29/22 21:00 21:52 WBC RBC Hgb Hct MCV MCH MCHC RDW Std Deviation RDW Coeff of Joellen Plt Count MPV Immature Gran % (Auto) Neut % (Auto) Lymph % (Auto) [place] % (Auto) Eos % (Auto) Baso % (Auto) Absolute Neuts (auto) Absolute Lymphs (auto) Nucleated RBC % D-Dimer Quant (PE/DVT) 0.33 Sodium Potassium Chloride Carbon Dioxide Anion Gap BUN Creatinine Estim Creat Clear Calc Est GFR (MDRD) Af Amer Est GFR (MDRD) Non-Af BUN/Creatinine Ratio Glucose Calcium Total Bilirubin Direct Bilirubin AST ALT Alkaline Phosphatase Troponin I High Sens Total Protein Albumin Globulin Lipase 58 Radiography Chest X-Ray - ED: 1 View, Read by ED Physician, Normal, Lungs and Mediastinum Diagnostic Testing: Clinical Impression(s) from Imaging Studies Chest X-Ray 12/29/22 20:42 IMPRESSION: No radiographic evidence of acute cardiopulmonary disease. Electronically Signed: Neto Curiel DO at 22:09 EDT , EKG Initial EKG: Attestation: I personally reviewed and interpreted this EKG as follows: Interpretation: Sinus Rhythm (Sinus 86 with no acute ischemia.) Differential Diagnosis Chest pain/SOB: pulmonary embolism Reason(s) PE less likely: Positive for D-Dimer negative and ACS ACS: Positive for no evidence of ACS based on cardiac biomarkers and EKG without ischemia Abdominal Pain: Pancreatitis Reason(s) Pancreatitis less likely: NL lab values Treatment and Re-Evaluation :: Portable chest x-ray per my interpretation shows no acute abnormalities. Radiology interpretation is reviewed and agrees. EKG reveals no evidence of ischemia. CBC reveals normal white count with a hemoglobin concentrated at 15.7. It appears that she tends to run with a higher hemoglobin count. Chemistry studies unremarkable. LFTs and lipase normal and troponin is normal at 14. Patient has had constant pain all day with intermittent pain for a week. I do not feel she needs a repeat troponin at this time. On repeat evaluation she is sleeping comfortably. She is easily awoken. She does report feeling improved. I will write her prescription for Prilosec. Return instructions are given. Discharge Plan Triage Chief Complaint: Chest Pain ED Provider: Janette El Dx/Rx/DC Orders Clinical Impression: Chest pain Instructions: ED Chest Pain, Uncertain Cause Prescriptions: New omeprazole 40 mg capsule,delayed release(DR/EC) 40 mg PO DAILY Qty: 14 0RF No Action levothyroxine [Synthroid] 100 mcg tablet 100 mcg PO DAILY atorvastatin 40 mg tablet 40 mg PO DAILY Qty: 30 3RF aspirin [Adult Aspirin Regimen] 81 mg tablet,delayed release (DR/EC) 81 mg PO DAILY Primary Care Provider: Luciano Gonzalez Referrals: Luciano Gonzalez MD [Primary Care Provider] - 1-2 Weeks Disposition Disposition: Home, Self Care
[2022-12-29 23:08] VITALS: BP 133/75; PULSE 77; RESP 16; O2SAT 99
== END 2022-12-29 23:12 | disposition home or self-care (01) ==
PROVIDERS: Emergency Provider Emergency Medicine; PCP Family Medicine; Visit Provider Emergency Medicine
DX: R07.9 Chest pain, unspecified (principal); F17.210 Nicotine dependence, cigarettes, uncomplicated; E03.9 Hypothyroidism, unspecified; Z79.82 Long term (current) use of aspirin; Z82.49 Family history of ischemic heart disease and other diseases of the circulatory system
CPT/HCPCS: 71045; 80048; 80076; 83690; 84484; 85025; 85379; 93005; 96365; 99284; J7030; A4216

== ENCOUNTER 2023-03-04 00:16 | Emergency (ER) | payer BC, SELFPAY ==
[2023-03-04 00:18] VITALS: BP 142/60; PULSE 102; RESP 18; TEMP 36.7; O2SAT 95; BMI 24.5
--- NOTE | 2023-03-04 00:54 | RAD_ITS ---
STUDY: X-RAY CHEST REASON FOR EXAM: Female, 58 years old. Right anterior lower rib cage pain. No trauma. TECHNIQUE: PA and lateral views of the chest. COMPARISON: May 10, 2019 chest x-ray FINDINGS: There is asymmetry of the chest pectus deformity suspected. Stable lung markings. There is postoperative change of the neck soft tissues. There is a stable small superficial skin lesion overlying the right breast soft tissues. The lungs are clear and expanded. There is no demonstrated pleural abnormality. Normal size heart. Normal mediastinum and jack. Normal visualized pulmonary arteries. Normal visualized aortic arch and descending thoracic aorta. Normal visualized thoracic spine. Normal visualized ribs, clavicles, and shoulders. There is no demonstrated abnormality of the visualized soft tissue structures of the upper abdomen. RAD/Chest PA and Lateral IMPRESSION: No visualized acute focal infiltrate. Stable chest. Electronically Signed: Nicki Freitas MD at 1:43 EDT ,
--- NOTE | 2023-03-04 00:55 | EDS_ITS ---
HPI History of Present Illness Chief Complaint: Chest Other Detail of Chief Complaint: Right anterior lower rib pain. No fall or trauma. Informant: patient Onset/Context/Timing Onset: Today and Hours Activity at onset: gradual Timing: Continuous Quality: Positive for Sharp and Stabbing Location: Right Chest Current Severity: Moderate Maximum Severity: Moderate Worsened By: Movement of Torso; Not Worsened By Exertion, Eating or Palpation Relieved By: Remaining Still Associated Symptoms: Negative for Nausea, Vomiting, Diaphoresis, Dyspnea, Cough, Fever, Lightheadedness, Acid Reflux or Palpitations Narrative Narrative: 58-year-old female history of cervical spinal stenosis with upcoming surgery. States that today she was mowing her grass sitting on a tractor. At around 715 developed right anterior lower rib cage pain. Denies any fall injury or trauma. No prior history. No history of DVT or PE or risk factors. No hemoptysis. No leg pain or swelling. Hurts primarily with movement. She denies being short of breath. Prior Similar Symptoms: No Recent Illness/Hospitalization: No CVD Risk Factors: Negative for Hypertension or Diabetes PE Risk Factors: Negative for Recent Travel/Surgery, Recent Immobilization, Prior DVT or PE, Cancer or OCP + Smoking + >/=35 TAD Risk Factors: Negative for Marfan's Syndrome [facility] Medical History Cervical stenosis (uterine cervix) (~2014) delivery delivered (~1990) Foraminal stenosis of cervical region Herniated nucleus pulposus, C4-5 left Hypothyroidism Peripheral arterial disease Spinal stenosis of lumbar region Home Medications levothyroxine 100 mcg tablet (Synthroid) 100 mcg PO DAILY 07/14/22 [History Last Taken Unknown] Allergy/AdvReac Type Severity Reaction Status Date / Time No Known Allergies Allergy Verified 03/04/23 00:20 Family History Other CAD (coronary artery disease) Diabetes Thyroid disorder Surgical History Hx of cervical spine surgery S/P laparoscopic procedure (~2015) Social History Smoking Status: Current every day smoker tobacco type: cigarettes alcohol intake: current alcohol intake frequency: a few times a week ROS ROS ED ROS Narrative Right anterior rib cage pain. No recent illness. No shortness of breath. Pain worse with motion. Review of Systems ROS Unobtainable: Denies due to encephalopathy Constitutional Constitutional ED: Denies chills or fever(s) ENT ENT ED: Denies ear pain Cardiovascular Cardiovascular: Reports chest pain; Denies as per HPI Respiratory/Chest Respiratory/Chest: Denies cough or dyspnea Gastrointestinal Gastrointestinal: Denies abdominal pain Genitourinary Genitourinary ED: Denies dysuria Musculoskeletal Musculoskeletal: Denies arthralgias Integumentary Denies abscess Neurologic Neurologic: Denies headache(s) Endocrine Endocrinology: Denies cold intolerance Hematologic/Lymphatic Hematologic/Lymphatic: Denies easy bleeding Allergic/Immunologic Allergic/Immunologic ED: Denies mouth swelling or tongue swelling EXAM Physical Exam Narrative Exam Narrative: 58-year-old female vital signs are stable afebrile. She does not look septic toxic. She is in no distress. Has pain with movement of her chest. H EENT exam unremarkable. Moist with membranes. Neck nontender. No JVD. No lymphadenopathy. Lungs clear to auscultation bilaterally. Heart regular rhythm rate about 100 no murmur. Chest wall specifically her right lower rib cage mid clavicular line there is exquisite tenderness to the one rib. There is no ecchymosis or bruising. No subcu air or crepitus. No gross bony deformity. Re st of the chest wall and posterior ribs are nontender. Abdomen soft nontender normal bowel sounds no peritoneal signs. Moving all 4 extremities. Calves are nontender that edema or cords. Equal symmetrical claim service representative strength. Dorsi plantarflexion intact. Back nontender. Neurologically she is awake and alert with no focal motor deficits. Const Vital Signs: 03/04/23 00:18 03/04/23 02:39 03/04/23 02:44 Temperature 98.0 F Temperature Source Temporal Pulse Rate 102 H 78 Respiratory Rate 18 18 Blood Pressure 142/60 H 119/65 Blood Pressure Mean 87 83 Pulse Ox 95 Oxygen Delivery Method Room Air Room Air Positive well nourished and well developed; Negative for obese, cachectic, contractures or unkempt General Appearance ED: well developed and NAD; Negative for unkempt, cachectic, contractures or pallor Nutritional Appearance: Negative for cachectic or obese HEENT Reports moist mucous membranes normocephalic and atraumatic; Negative for trauma or tenderness Eyes EOMs intact bilaterally General Eye ED: Negative for pale conjunctiva or scleral icterus Neck no lymphadenopathy, supple and no JVD General: Negative for tenderness Chest Wall inspection of chest normal and palpation of chest normal Chest Narrative: Chest wall tenderness exquisitely and only to the right lower anterior rib along the midclavicular line. No signs of trauma, bruising or redness. No rash. Chest: Negative for tenderness Resp normal respiratory effort and clear to auscultation bilaterally Effort and Inspection: Negative for respiratory distress Auscultation: Negative for rales, rhonchi or wheezes Cardio regular rate, regular rhythm, S1 normal heart sound, S2 normal heart sound and no murmurs Peripheral Pulses: pulses 2+ throughout GI normal to inspection, nondistended, normoactive bowel sounds, soft to palpation, non-tender, non-distended and no masses Back/Spine no CVA tenderness and no thoracic nor lumbar tenderness General Back: Negative for CVA tenderness Cervical Spine: Negative for cervical spine tenderness Extremity normal to inspection General Extremety ED: Negative for edema or pulses abnormal General Extremity: Negative for edema or pulses abnormal Neuro oriented x3 and CN's II-XII intact bilaterally Sensorium / Orientation: awake, oriented to person and oriented to time; Negative for confused, lethargic or stuporous Motor Exam: strength 5/5 throughout Psych mental status grossly normal Appearance: Negative for unkempt Attitude: No agitated Mood & Affect: Negative for depressed, anxious or tearful Skin no rashes or lesions noted and no wounds General Skin Exam: Negative for jaundice or pallor Rashes: No rashes noted Trauma: Negative for abrasion or laceration Image ED - Body Diagram Man: 1. Right lower anterior, midclavicular line tenderness along the lower rib. MDM MDM MDM Narrative Medical decision making narrative: 58-year-old with no history of DVT or PE or risk factors or any family history of clotting disorder. Has reproducible right lower rib cage pain without history of trauma. No fall or injury. There is exquisite tenderness along 1 rib anteriorly. This does not sound cardiac. She has no risk factors or history of PE or DVT. There is no leg pain or swelling. Chest x-ray will be obtained and an EKG. Patient's EKG and chest x-ray will not show anything specific. Clinically I do not think this is cardiac ischemia at all she has never had a DVT or PE and has no risk factors for it. I think this is going to end up being musculoskeletal chest wall pain. She will undergo cardiac work-up with a D-dimer. She has never had this before. Repeat exam patient is doing well at 2:50 AM. We went over all of her test results. She does not need a second troponin. This appears to be musculoskeletal chest pain. Ice. Alternate Motrin for pain and inflammation and Tylenol. Follow-up with not improving. Return if worse. History & Record Review Discussion w/independent historian: Patient Lab Data Attestation: I reviewed the patient's lab results. Lab results narrative: CBC shows white count 13. H&H 14.9 and 45. Platelets 228. Electrolytes show a gap of 5. Normal BUN and creatinine. Glucose 126. Troponins 9. Chest x-ray is unremarkable. D-dimer is less than 0.27 and normal. Labs: Laboratory Results - last 24 hr 03/04/23 03/04/23 01:57 02:17 WBC 13.0 H RBC 4.86 Hgb 14.9 Hct 45.3 MCV 93.2 MCH 30.7 MCHC 32.9 RDW Std Deviation 48.4 H RDW Coeff of Joellen 14.3 Plt Count 228 MPV 12.7 H Immature Gran % (Auto) 0.400 Neut % (Auto) 74.9 H Lymph % (Auto) 16.4 L Lee % (Auto) 6.6 Eos % (Auto) 1.1 Baso % (Auto) 0.6 Absolute Neuts (auto) 9.7 H Absolute Lymphs (auto) 2.13 Nucleated RBC % 0 D-Dimer Quant (PE/DVT) < 0.27 L Sodium 140 Potassium 3.6 Chloride 110 H Carbon Dioxide 25.0 Anion Gap 5 BUN 12 Creatinine 0.74 Estim Creat Clear Calc 67.71 Est GFR (MDRD) Af Amer 103 Est GFR (MDRD) Non-Af 85 BUN/Creatinine Ratio 16.2 Glucose 126 H Calcium 9.0 Troponin I High Sens 9 Radiography Chest X-Ray - ED: 2 View, Read by ED Physician, Heart, Lungs, Mediastinum, Bony Structures, No Acute Disease and Chronic Changes Diagnostic Testing: Clinical Impression(s) from Imaging Studies Chest X-Ray 03/04/23 00:54 IMPRESSION: No visualized acute focal infiltrate. Stable chest. Electronically Signed: Nicki Freitas MD at 1:43 EDT , Chest x-ray, 2 views, interpreted myself shows no acute abnormality. Normal cardiac silhouette. No infiltrate. No effusions. No pneumothorax. No obvious bony abnormalities. No obvious rib fractures. Rhythm Strip Rhythm Strip: Sinus Rhythm Rate: 92 Ectopy: None EKG Initial EKG: Attestation: I personally reviewed and interpreted this EKG as follows: Interpretation: Sinus Rhythm and No Acute Injury Pattern Comments: Normal sinus rhythm rate of 92. No acute signs of CO or ische lore. Discharge Plan Triage Chief Complaint: Chest Other ED Provider: Best Hartley Dx/Rx/DC Orders Clinical Impression: Acute chest wall pain, Chest pain Instructions: ED Strain Chest Wall Prescriptions: No Action levothyroxine [Synthroid] 100 mcg tablet 100 mcg PO DAILY Primary Care Provider: Luciano Gonzalez Referrals: Luciano Gonzalez MD [Primary Care Provider] - 1 Week if not improving Activity Restrictions/Additional Instructions: Ice to chest wall to decrease pain and inflammation. Motrin for pain and inflammation and Tylenol for pain. Alternate those. This does not appear to be your heart or from a blood clot. Clinically it appears to be musculoskeletal pain. This should progressively improve if not follow-up with your doctor feeling a lot worse return to the ER. Disposition Disposition: Home, Self Care
[2023-03-04] MEDS: Acetaminophen 500 MG Tablet 1000 MG PO (01:00)
--- NOTE | 2023-03-04 01:01 | EKG12_ITS ---
Test Reason : CHEST OTHER Blood Pressure : / mmHG Vent. Rate : 092 BPM Atrial Rate : 092 BPM P-R Int : 208 ms QRS Dur : 068 ms QT Int : 332 ms P-R-T Axes : 069 006 054 degrees QTc Int : 410 ms Normal sinus rhythm Possible Left atrial enlargement Anteroseptal infarct , age undetermined Abnormal ECG Confirmed by AMANDA KABA, LIU ([id number]), manager editorial MADAN LAZO ([id number]) on 03/04/2023 10:44:59 AM Referred By: Confirmed By:LIU PATEL MD
[2023-03-04 02:05] LABS: Absolute Lymphocyte Count 2.13 X10^3/uL (0.83-4.51); Absolute Neutrophil Count 9.7 X10^3/uL (2.0-7.7); Basophil# 0.08 X10^3/uL; Basophil% 0.6 % (0-1); Eosinophil# 0.14 X10^3/uL; Eosinophils% 1.1 % (0-5); Hematocrit 45.3 % (37-47); Hemoglobin 14.9 g/dL (12.0-15.0); Lymphocyte # 2.13 X10^3/ul (0.83-4.51); Lymphocyte % 16.4 % (19-41); Mean Corp Hgb Conc 32.9 g/dL (32-36); Mean Corpuscular Hgb 30.7 pg (27.0-32.0); Mean Corpuscular Volume 93.2 fL (81-99); Mean Platelet Vol. 12.7 fl (6.2-12.0); Monocyte# 0.86 X10^3/uL; Monocyte% 6.6 % (0-10); NRBC Flagged by Analyzer 0 % (0-5); Neutrophil % 74.9 % (47-70); Platelet Count 228 K/mm3 (150-450); RBC Distribution Width CV 14.3 % (11.6-14.6); RBC Distribution Width SD 48.4 fl (35.1-43.9); Red Blood Count 4.86 M/mm3 (4.2-5.4)
[2023-03-04] MEDS: Aspirin 81 MG TAB.CHEW 324 MG PO (02:12)
[2023-03-04 02:23] LABS: Anion Gap 5 (5-15); BUN 12 mg/dL (7-18); BUN/Creat Ratio 16.2 RATIO (10-20); Chloride 110 mmol/L (98-107); Creatinine, Serum 0.74 mg/dL (0.55-1.02); EST Glomerular Filtration Rate 85 mL/min (>60); Est Glom Filt Rate - Afr Amer 103 mL/min (>60); Estimated Creatinine Clearance 67.71 ml/min; Glucose 126 mg/dL (74-106); Potassium 3.6 mmol/L (3.5-5.1); Sodium Level 140 mmol/L (136-145); Troponin-I HS 9 pg/mL (3.0-54.0)
[2023-03-04 02:39] VITALS: BP 119/65; PULSE 78; RESP 18
[2023-03-04 02:41] LABS: D-Dimer Quantitative (DVT/PE) < 0.27 FEU/ug/m (0.27-0.49)
[2023-03-04 02:58] VITALS: PULSE 80; RESP 16; O2SAT 96
== END 2023-03-04 02:59 | disposition home or self-care (01) ==
PROVIDERS: Emergency Provider Emergency Medicine; PCP Family Medicine; Visit Provider Emergency Medicine
DX: R07.89 Other chest pain (principal); F17.210 Nicotine dependence, cigarettes, uncomplicated; R07.81 Pleurodynia; E03.9 Hypothyroidism, unspecified
CPT/HCPCS: 36415; 71046; 80048; 84484; 85025; 85379; 93005; 99285; A4216

== ENCOUNTER 2023-04-06 10:56 | Inpatient (IN) | payer BC, SELFPAY ==
[2023-03-29 11:22] LABS: Absolute Lymphocyte Count 1.94 X10^3/uL (0.83-4.51); Absolute Neutrophil Count 4.8 X10^3/uL (2.0-7.7); Basophil# 0.04 X10^3/uL; Basophil% 0.5 % (0-1); Eosinophil# 0.09 X10^3/uL; Eosinophils% 1.2 % (0-5); Hematocrit 46.7 % (37-47); Lymphocyte # 1.94 X10^3/ul (0.83-4.51); Mean Corp Hgb Conc 32.1 g/dL (32-36); Mean Corpuscular Hgb 30.3 pg (27.0-32.0); Mean Corpuscular Volume 94.3 fL (81-99); Mean Platelet Vol. 12.1 fl (6.2-12.0); Monocyte# 0.52 X10^3/uL; NRBC Flagged by Analyzer 0 % (0-5); Neutrophil # 4.84 X10^3/uL (2.7-7.7); Platelet Count 204 K/mm3 (150-450); RBC Distribution Width CV 13.9 % (11.6-14.6); RBC Distribution Width SD 48.3 fl (35.1-43.9); Red Blood Count 4.95 M/mm3 (4.2-5.4); White Blood Count 7.5 K/mm3 (4.4-11.0)
[2023-03-29 12:05] LABS: Magnesium 2.2 mg/dL (1.6-2.6); Thyroid Stim Hormone (TSH) 2.08 uIU/mL (0.358-3.74)
[2023-03-29 12:27] LABS: HIV - WCH Non-Reactive (Nonreactive); Hepatitis B Surface Antibody Reactive; Hepatitis C Antibody Non-Reactive (Nonreactive)
[2023-03-30 05:33] LABS: Hepatitis A AB, Total Negative (Negative)
--- NOTE | 2023-04-05 16:50 | PCM.HP.BLA ---
History and Physical Add?Addendum Date of Service: 12/07/22 MR#: [id number] Acct: [id number] Name: KATIE REYNA Rep #: [id number] : 1965 Provider: Dr. Shayne Crow DO Age/Sex: 57/F Location: [facility] [place] Status: Signed Intake Intake Visit Reasons: CERVICAL SPINE Is patient in pain?: Yes Pain scale (1-10): 8 Allergies No Known Allergies Allergy (Verified 12/07/22 11:33) Medications aspirin 81 mg tablet,delayed release (Adult Aspirin Regimen) 81 mg PO DAILY 07/14/22 [History Confirmed 12/07/22] atorvastatin 40 mg tablet 40 mg PO DAILY #30 tabs 07/14/22 [Rx Confirmed 12/07/22] levothyroxine 100 mcg tablet (Synthroid) 100 mcg PO DAILY 07/14/22 [History Confirmed 12/07/22] PFSH Medical History Cervical stenosis (uterine cervix) (~2014) delivery delivered (~1990) Contact with and (suspected) exposure to other viral communicable diseases URI (upper respiratory infection) Surgical History Hx of cervical spine surgery S/P laparoscopic procedure (~2015) Family History Other CAD (coronary artery disease) Diabetes Thyroid disorder Social History Smoking Status: Current every day smoker tobacco type: cigarettes alcohol intake: current alcohol intake frequency: a few times a week HPI CERVICAL SPINE Details: Parts of this documentation were recorded by a scribe, this documentation accurately reflects the service provided and the decisions made by me, Dr. Shayne Crow DO 12/07/22 1127. KATIE REYNA is a 57 year old F here today for f/u on neck pain. States that she is having increased pain and it has been going on for 2-3 weeks and gets worse by the day. Denies any injury/event o cause her increased pain. States that she takes Tylenol sometimes but it doesn't seem to help much. Notes that it only helps with the headaches that she gets from the pain. States that she does occasionally get radiating pain but not like it was 10 years ago. States that she is fine when she doesn't move her head but if she goes to turn her head to either side it increases her pain. Katie Laughlin returns with a new problem that of pain in her neck more to the left side that started what a while ago but the last 3 weeks it got a lot worse and now the pain has become intolerable. She had a cervical fusion about [address] Cano. It helped her and she did well. The headaches are awful. Her pain is a 10/10 in severity. When it is good it is still a 7/10 in severity. In addition by the end of the day she is afraid to even turn her head because it makes the pain even worse. She denies any bowel or bladder dysfunction. She denies history of unexplained weight loss night fever sweats or chills. On examination she has more pain with extension than flexion. She does not like to extend her head at all. Has a positive Spurling's to the left side. It is negative to the right. She has weakness of the deltoid on the left as compared to the right. The other muscle groups have good strength. She has perceptible triceps biceps and brachioradialis reflexes bilaterally. The left deltoid demonstrates some atrophy as compared to the right. Impression is that of herniated disc C4-5 above the old fusion. I am recommending an MRI scan of the cervical spine to be done as soon as is reasonably possible. I will see her after the MRI scan and make further recommendations. Coding Level of Care Code Off vis,est,level 3 Diagnoses Herniated nucleus pulposus, C4-5 left M50.221 Time Spent (min) 25 Assessment and Plan Assessment and Plan (1) Herniated nucleus pulposus, C4-5 left: Status: Acute Orders: Orders
[2023-04-06] VITALS (9 sets, daily range): BP systolic 135–174; BP diastolic 62–92; PULSE 69–95; RESP 16–18; TEMP 36.2–36.6; O2SAT 93–100; BMI 24.2
[2023-04-06] MEDS: Magnesium 1 GM over 15 mins IV (11:37)
[2023-04-06] MEDS: Lactated Ringers 1,000 ML 15 ML IV (11:37)
[2023-04-06] MEDS: Acetaminophen 500 MG Tablet 1000 MG PO (11:38)
[2023-04-06] MEDS: dexAMETHasone 10 MG/ML Vial 8 MG IV (11:38)
[2023-04-06 11:54] LABS: Bedside Glucose 97 mg/dL (74-106)
--- NOTE | 2023-04-06 13:00 | DISC_PTH ---
PATIENT: ANGEL REYNA LOC: MS3 U#:[id number] AGE/SX: 58/F ROOM: [facility] [place] RE04/06/[address]: Dr. Shayne Crow DO : 1965 BED: 1 DIS: 04/08/2023 SPEC #: [id number] RECD: 04/07/23 08:09 STATUS: XIOMARA REMargaret #: [id number] ADAN: 04/06/23 13:[address]: Shayne Crow DEPT: SURGICAL PATHOLOGY RECD BY: Herminia Davis ENTERED: 04/07/23 09:50 SP TYPE: DISC OTHR DR: MD Dr. Luciano Rogers MD Dr. Paige Pierce, MD Tissues: A - Intervertebral disc, NOS B - Intervertebral disc, NOS Procedures: Surgery Specimen Level III HEADER OPERATION: ERAS, anterior cervical fusion C4-5 and C3-4 PRE-OP DIAGNOSIS: Herniated nucleus pulposus C4-5 left TISSUE SUBMITTED: A - Disc C4-5, B - Disc C3-4 MICROSCOPIC DIAGNOSIS A. Disc C4-5: Fragments of fibrocartilaginous tissue with focal degenerative changes. B. Disc C3-4: Fragments of fibrocartilaginous tissue with focal degenerative and reactive changes. HOLLI:simba 04/08/2023 MICROSCOPIC DESCRIPTION Slides are reviewed. GROSS DESCRIPTION A - Received in fixative is one container labeled with the patient's name and designated disc C4-5. The specimen consists of multiple pieces of gtz, indurated tissue that in aggregate measure 3.0 x 3.0 x 0.8 cm. Cake Wrapper sections are submitted in one cassette. B - Received in fixative is one container labeled with the patient's name and designated disc C3-4. The specimen consists of multiple pieces of gtz, indurated tissue that in aggregate measure 3.0 x 3.0 x 0.6 cm. Cake Wrapper sections are submitted in one cassette. / HOLLI:simba 04/07/2023 TC:5 CPT: 09331 x2
[2023-04-06] MEDS: Cefazolin 2 GM in 0.9% Normal Saline 100 ML IV (13:12)
--- NOTE | 2023-04-06 13:42 | RAD_ITS ---
STUDY: X-RAY - CERVICAL SPINE REASON FOR EXAM: Female, 58 years old. Anterior fusion of cervical spine. TECHNIQUE: Intraoperative view(s) of the cervical spine were obtained. COMPARISON: None FINDINGS: Single lateral cervical spine view shows anterior fusion at C5-6 and C6-7 with intervertebral disc prostheses. Diffuse uncovertebral and facet sclerosis. Intervertebral disc space narrowing at C3-4 and C4-5. RAD/Spine 1 View Any Level IMPRESSION: Cervical spondylosis with anterior fusion at C5-6 and C6-7. Electronically Signed: Nick Moore MD at 15:37 EDT ,
--- NOTE | 2023-04-06 14:55 | RAD_ITS ---
STUDY: X-RAY - CERVICAL SPINE REASON FOR EXAM: Female, 58 years old. Anterior fusion of C3-4 and C4-5, intraoperative image. TECHNIQUE: A single lateral view(s) of the cervical spine were obtained. COMPARISON: None FINDINGS: Single lateral cervical spine view shows instrument anterior to the cervical spine. Changes of fusion at C3-4 and C4-5 with localizer. RAD/Spine 1 View Any Level IMPRESSION: Intraoperative cervical spine view. Electronically Signed: Nick Moore MD at 15:34 EDT ,
--- NOTE | 2023-04-06 15:50 | RAD_ITS ---
STUDY: X-RAY -cervical SPINE REASON FOR EXAM: Female, 58 years old. ANTERIOR FUSION C3-4, C4-5 TECHNIQUE: Lateral view(s) of the cervical spine were obtained. COMPARISON: None FINDINGS: Single lateral view performed in the operating room demonstrates intraoperative localization of the anterior C3-4 disc space. Postsurgical changes status post fusion of C4-5, C5-6 and C6-7 . RAD/Spine 1 View Any Level IMPRESSION: Intraoperative localization of C3-4 disc space Electronically Signed: Jay Mcneil MD at 17:22 EDT ,
--- NOTE | 2023-04-06 17:02 | RAD_ITS ---
STUDY: X-RAY - CERVICAL SPINE REASON FOR EXAM: Female, 58 years old. ANTERIOR FUSION C3-4, C4-5 TECHNIQUE: Cross table lateral view of the cervical spine . COMPARISON: April 06, 2023 at 15:49 hours FINDINGS: Stable surgical fusion from C5 through T1 . Interval anterior fusion of C3-C4 with disc spacer placement since the previous study. RAD/Spine 1 View Any Level IMPRESSION: Postsurgical changes as noted of the cervical spine. Electronically Signed: Neto Curiel DO at 17:28 EDT ,
[2023-04-06] MEDS: THROMBIN (RECOMBINANT) 20,000 UNIT VIAL 20000 UNIT TOPICAL (17:18)
--- NOTE | 2023-04-06 17:54 | PCM.OPRPT ---
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 Crow Structural Shop Helper: Jazmine Sutton NP Anesthesia: General endotracheal administered by [place] associate drafter EBL: Less than 30 cc Drains: 1/4 inch [place] Complications: None Procedure: Patient was taken to the OR where she was placed in spine position on the operating table she was then placed under general endotracheal anesthesia. A Barnes catheter was inserted. Neuro monitoring placed her leads on the patient. The left crest area and the cervical area were then prepped and draped in standard fashion. Prior to that the skin was marked with a preoperative x-ray with a needle marker in place. That kenya was a small laceration with the end of a needle. At that point we would start the incision. The incision was done in line with longer's lines from the midline to the right sternocleidomastoid. Subcutaneous tissues were incised length of the skin incision. I then undermined the subcutaneous tissue off of the platysma in a cephalad and caudad direction. The platysma that was then split up and down the length of the extended incision. I then exploited the planes note that she had quite a bit of adipose tissue and we had to go through the adipose tissue to then expose the pretracheal fascia and the superficial cervical fascia. I then identified the carotid it was protected throughout the procedure. We then moved the trachea and the esophagus to the left and retracted and the carotid and strap muscles to the right. I was able to identify the top of the old plate that was at C5. We simply moved up 1 level and put a needle marker in place and took an intraoperative x-ray to confirm that we were indeed at C4-5 which we were. Then cut the periosteum and anterior longitudinal ligament up and down and then identified the disc space. I cauterized the anterior longitudinal wound above and below the disc space and cut the anterior annulus and removed it. We then removed more nucleus from within the disc base with pituitary rongeurs. A distractor was put on the right side in order to distract the left which is where her pain was of course. Then remove the cartilage off both endplates with sharp curettes. Note that she had known foraminal stenosis that was quite severe. Using a micheal bur I was able to bur the uncinate process down to a very thin shell used a technique where we would simply bur followed by the instillation of cold cold saline this was done repeatedly until it was very thick and thin shell of bone. This was then pulled off of the base of the C5 nerve root with curettes. Note that the foramen was now quite open. Then remained removed all remaining cartilage off both endplates we used a micheal bur to open the uncinate area on both sides to make room for the cage. We even burred a little bit of the posterior edge that was curved up. Once this was done we took our measurements for the cage. We used a small cage of the 2 sizes that was 7 mm size with 7 degrees of lordosis. The cage was a stand-alone cage as the old plate at C5 would have been in the way of a standard plate. Thus we had to use a stand-alone cage. The cage was filled with allograft it was then soaked in the patient's own stem cells. Note that the stem cells were obtained early in the case before the incision was even made was done from the left iliac crest with a Jamshidi needle 60 cc were removed and handed off to the certified veterinary technician in the room to separate the stem cells from the L1 cells and concentrated them about 10 times. These were given back to us the allograft in the stand-alone cage was then soaked in the patient's own stem cells it was then tamped into place with anesthesia pulling on the head and countersunk about 1 mm. I then used the 14 mm screw 1 angled up and 1 angled down that is 1 into C5 and 1 and 2 was C4. This was observed on plain x-ray was found to be quite satisfactory with excellent position of the 2 screws and the stand-alone cage then moved up doing more exposure above 234 we identified the space cauterized the anterior longitudinal ligament above and below the actual space and then cauterized the edge of the coli muscles were elevated and gently off the space. Note that we did not have to do another x-ray as we knew exactly where we were. We then cut the anterior annulus and removed it and removed more nucleus from within the disc space. Again curettes were used to remove the cartilage off both endplates. A distractor was put on the right side to distract the left. Then the micheal bur was used to bur the uncinate process and open it in the same fashion we did at the other level. Once a thin shell we used small curettes to pull that off the base of the nerve root. We then checked the foramen was found to be quite satisfactory was completely opened up with no more pressure on the disc would be the C4 nerve root. A standard cage was used at this level. I note that we took measurements and used a 7 mm cage again we then used a rasp to rasp the space as we did the level below. Once we had good bleeding endplate we filled the cage with allograft it was then soaked in the patient's own stem cells and tamped into place and countersunk a couple of millimeters. A 22 mm plate was then centered and we used a locking pin on 1 corner to hold it in place and then used the awl to puncture the holes 1 at a time followed by the insertion of 14 mm self-tapping screws this was done with 2 of them into C3 and to augment to C4. The screws had a self locking mechanism as they went in through the [place]. An intraoperative x-ray was taken that demonstrated excellent position of this cage and the plate. We then placed an amniotic membrane directly over the plate to prevent its adhesions to the trachea or the esophagus. A 1/4 inch Elvis drain was inserted. I then closed the skin using subcutaneous tissues with 5-0 Vicryl interrupted in nature. This brought the skin together and there was no need for outside stitches. Note that a safety pin was placed through the drain to prevent suction into the wound and sterile dressings were then applied the patient was then recovered in the OR she was moved to her hospital bed and taken to recovery in satisfactory condition. This the end of operative summary on Katie Vasquez. This is Dr. Crow dictating.
[2023-04-06] MEDS: dexAMETHasone 4 MG/ML Vial IV ×2 (17:55→23:35)
--- NOTE | 2023-04-06 21:23 | PN.HOSP_ITS ---
Subjective Subjective 58-year-old female presents to the hospital for elective cervical neck fusion with an anterior approach. She has foraminal stenosis between C4 and C5 and C3 and C4 on the left with left-sided neck pain. She is postop day 0 and we were consulted for medical management. She takes Synthroid for hypothyroidism, Prot lalit for GERD Objective Data Objective Data Vital Signs: Vital Signs Temp Pulse Resp BP Pulse Ox O2 Del Method O2 Flow Rate 97.9 F 83 18 150/88 H 97 Nasal Cannula 2 04/06/23 19:47 04/06/23 19:47 04/06/23 19:47 04/06/23 19:47 04/06/23 19:47 04/06/23 20:15 04/06/23 20:15 Oxygen Flow Rate (L/min) 2 Oxygen Delivery Method Nasal Cannula Weight: 136 lb 10.986 oz Body Mass Index (BMI) 24.2 Intake & Output: Intake and Output for Last 24 Hours 04/05/23 04/06/23 04/07/23 03:59 03:59 03:59 Intake Total 3212 / 3212 Output Total 1000 / 1000 Balance 2212 / 2212 Lab / Micro Data 03/29/23 10:53 Labs: Laboratory Results - last 24 hr 04/06/23 11:24: POC Glucose 97 Micro: Microbiology 03/29/23 10:53 Swab (Method) Nasal Screen MRSA/MSSA - Final Radiography Diagnostic Testing: Radiology Impression Spine X-Ray 04/06/23 13:42 IMPRESSION: Cervical spondylosis with anterior fusion at C5-6 and C6-7. Electronically Signed: Nick Moore MD at 15:37 EDT , Spine X-Ray 04/06/23 14:55 IMPRESSION: Intraoperative cervical spine view. Electronically Signed: Nick Moore MD at 15:34 EDT , Spine X-Ray 04/06/23 15:50 IMPRESSION: Intraoperative localization of C3-4 disc space Electronically Signed: Jay Mcneil MD at 17:22 EDT , Spine X-Ray 04/06/23 17:02 IMPRESSION: Postsurgical changes as noted of the cervical spine. Electronically Signed: Neto Curiel DO at 17:28 EDT , Physical Exam Narrative General: Alert, Oriented x3, Cooperative, No apparent distress HEENT: Atraumatic, PERRLA, EOMI, Normocephalic, currently in a c-collar dressing is not visualized Oral: Moist Mucosa Neck: Supple, No JVD Lungs: Clear to auscultation, Normal air movement, No rhonchi, No wheeze, No rales Cardiovascular: Regular rate, Regular Rhythm, Normal S1, Normal S2, No murmurs Abdomen: Soft, Non Tender, Non-Distended, No Hepato-splenomegaly Extremities: No edema, Capillary Refill Less than 3 Seconds Skin: No rashes, No breakdown Musculoskeletal: No Tenderness to Palpation of Joints or Extremities Neurological: Cranial nerves II-XII grossly intact, Motor Exam 5/5 strength throughout, Sensory exam intact to light touch and pain, she does state that her left upper extremity feels heavy but is otherwise normal Psych/Mental Status: Normal Affect, Appropriate Assessment & Plan Assessment/Plan (1) Cervical pain: PLAN: Plan 1. Cervical pain with foraminal stenosis between C3 and C5 status post cervical fusion with an anterior approach ? Pain management per primary ? PT/OT 2. Hypothyroidism ? Stable ? Continue with Synthroid 3. GERD ? Stable ? Continue with PPI 4. Tobacco abuse ? Discussed cessation ? Continue with nicotine patch DVT: SCDs Charges/Coding Visit Charges Office Visits / Consults: 65422 OV L3 New
[2023-04-06] MEDS: Cefazolin 1 GM/50 ML BAG IV (21:58)
[2023-04-06] MEDS: Lactated Ringers 1,000 ML 100 ML IV (21:58)
[2023-04-06] MEDS: Morphine 2 MG/ML Syringe IV (23:36)
[2023-04-07] MEDS: 0.9% Saline Lock 10 ML Syringe IV ×3 (02:19→20:03)
[2023-04-07] MEDS: Morphine 2 MG/ML Syringe IV ×3 (02:19→20:03)
[2023-04-07 05:51] VITALS: BP 138/78; PULSE 96; RESP 18; TEMP 36.6; O2SAT 94
[2023-04-07] MEDS: Cefazolin 1 GM/50 ML BAG IV (06:05)
[2023-04-07] MEDS: dexAMETHasone 4 MG/ML Vial 2 MG IV ×2 (06:05→13:23)
[2023-04-07] MEDS: oxyCODONE 5 MG Tablet PO ×3 (06:06→16:43)
[2023-04-07] MEDS: Levothyroxine 100 MCG Tablet PO (07:20)
[2023-04-07 08:00] VITALS: BP 145/79; PULSE 100; RESP 18; TEMP 36.8; O2SAT 95
[2023-04-07] MEDS: Pantoprazole Sodium 40 MG Tablet PO (09:39)
[2023-04-07 09:48] VITALS: RESP 18
--- NOTE | 2023-04-07 11:50 | PCM.PN.HOSP ---
Reason for Visit Reason for Visit: Diagnoses Cervicalgia (04/06/23) Encounter for other preprocedural examination (04/06/23) Subjective Subjective Patient reports still having some pain in her neck and feels her left shoulder is little bit heavy, looking forward to eating lunch, no chest pain or shortness of breath, no abdominal pain Objective Data Objective Data Vital Signs: Vital Signs Temp Pulse Resp BP Pulse Ox O2 Del Method O2 Flow Rate 98.2 F 100 18 145/79 H 95 Room Air 2 04/07/23 08:00 04/07/23 08:00 04/07/23 09:48 04/07/23 08:00 04/07/23 08:00 04/07/23 08:00 04/07/23 05:51 Oxygen Flow Rate (L/min) 2 Oxygen Delivery Method Room Air Weight: 62 kg Body Mass Index (BMI) 24.2 Intake & Output: Intake and Output for Last 24 Hours 04/05/23 04/06/23 04/07/23 23:59 23:59 23:59 Intake Total 3262 / 3262 650 / 650 Output Total 1000 / 1000 800 / 800 Balance 2262 / 2262 -150 / -150 Lab / Micro Data 03/29/23 10:53 Labs: Laboratory Results - last 24 hr 04/06/23 11:24: POC Glucose 97 Micro: Microbiology 03/29/23 10:53 Swab (Method) Nasal Screen MRSA/MSSA - Final Radiography Diagnostic Testing: Radiology Impression Spine X-Ray 04/06/23 13:42 IMPRESSION: Cervical spondylosis with anterior fusion at C5-6 and C6-7. Electronically Signed: Nick Moore MD at 15:37 EDT , Spine X-Ray 04/06/23 14:55 IMPRESSION: Intraoperative cervical spine view. Electronically Signed: Nick Moore MD at 15:34 EDT , Spine X-Ray 04/06/23 15:50 IMPRESSION: Intraoperative localization of C3-4 disc space Electronically Signed: Jay Mcneil MD at 17:22 EDT , Spine X-Ray 04/06/23 17:02 IMPRESSION: Postsurgical changes as noted of the cervical spine. Electronically Signed: Neto Curiel DO at 17:28 EDT , Physical Exam Narrative General: Alert, oriented, no apparent distress HEENT: Atraumatic, normocephalic Eyes: Anicteric, normal conjunctiva, extraocular movements grossly intact Neck: Patient with neck device in place Respiratory: Clear to auscultation bilaterally, normal respiratory effort Cardiovascular: Regular rate and rhythm GI: Soft, nontender, nondistended Extremities: No edema Musculoskeletal: Moving all extremities Neuro: Feels her arm is heavy when she tries to move left upper arm laterally but otherwise no changes in motion/strength and no sensory changes Skin: No rashes appreciated Psych: Cooperative Assessment & Plan Assessment/Plan (1) Cervical pain: PLAN: Plan 1. Cervical pain with foraminal stenosis between C3 and C5 status post cervical fusion with an anterior approach ? Pain management per primary ? PT/OT -04/07: Patient postop day 1, management per primary, patient started on IV Decadron 2 mg every 6x2 2. Hypothyroidism ? Stable ? Continue with Synthroid -04/07: Most recent TSH 2.08, do not need repeat as this was on 03/29/2023 3. GERD ? Stable ? Continue with PPI -04/07: Started on clear liquids for lunch, looking for to eating, continue management 4. Tobacco abuse ? Discussed cessation ? Continue with nicotine patch DVT: SCDs Charges/Coding Visit Charges Inpatient E&M: 06230 Subs Hosp L1
--- NOTE | 2023-04-07 13:28 | CASEMGMT ---
JENNY ADAMS Assessment: Face to Face with pt for initial transition planning/care coordination assessment. RN BRYAN introduced self and role at [facility], pt voices understanding and consents to assessment. Pt is A/O x4 and answers all questions appropriately at this time. Pt sitting up in bed in no distress with nurse at bedside. Care providers, pharmacy, and demographics verified/updated. Admitting Dx: anterior cervical fusion C4-5 and C3-4/labs PCP:Lisa Specialists:[facility]; [facility]; SAMIR Ambrose Preferred Pharmacy: [facility] Insurance: [employer] Prescription Benefit: yes LNOK: Rodolfo Vasquez, Living Arrangements: Pt lives with in a two story home, pt uses main level only with 2 steps to enter with a rail. Pt reports she was I in ADL's prior to surgery. Pt to assist post surgery. Pt denies concerns at home. Transportation: Pt drives self and denies concerns with transportation. Pt will transport her to medical appts post surgery until she can drive again. DME/HHC/SNF: Pt has a cane, walker, crutches in the home available to her but she does not use. Pt denies hx of HHC or SNF stays. Pt states no concerns with going home at time of dc. Pt states no further concerns/needs. CM to follow. Advised pt to ask CM if any further question/concerns/needs arise, voices understanding. Pt Goal: Home Plan: Home
[2023-04-07] MEDS: BENZOCAINE/MENTHOL 1 LOZENGE MUCOUS MEM ×3 (13:29→23:16)
[2023-04-07 14:00] VITALS: BP 125/59; PULSE 97; RESP 18; TEMP 36.9; O2SAT 93
[2023-04-07 15:00] VITALS: RESP 18
--- NOTE | 2023-04-07 16:18 | NURSING ---
late entry 1013 am; Notified Dr. Crow of pt complaint of l shoulder heaviness. Denies pain. States this is a change since before surgery. Unable to lift arm and hold it up. Dr. Crow to eval pt today. No new orders.
--- NOTE | 2023-04-07 16:35 | PN.ORTHO_ITS ---
Objective Data Objective Data Postop day #1. Katie reports that the pain in the left side of her neck and that went all the way to her deltoid is gone. However she also cannot lift her left upper arm she cannot abduct the shoulder or flex the shoulder. I can passively move it in all directions. She has no numbness over the C5 distr ibution however. She also has no pain. 1 has to think that this is a C5 nerve palsy that developed after surgery. It developed during surgery we would have known from neuro monitoring. I explained to her that this is the first time that up seen this complication. I suppose it could be a painless rotator cuff tear however that is unlikely. For now we will consider that it is a C5 nerve palsy on the left with no dysesthesia. I am glad that her pain is gone however I am concerned about the apparent C5 nerve palsy. What is strange is that she has no dysesthesia of that distribution. Perhaps that is a good sign for recovery over the next several weeks. The interim I will keep her in the house 1 more day because of this and see how it is doing tomorrow. I went ahead and changed her dressing and removed her drain the incision is dry and healing well. I will see her again at rounds tomorrow. Vital Signs: Vital Signs Temp Pulse Resp BP Pulse Ox O2 Del Method O2 Flow Rate 98.5 F 97 18 125/59 H 93 Nasal Cannula 2 04/07/23 14:00 04/07/23 14:00 04/07/23 15:00 04/07/23 14:00 04/07/23 14:00 04/07/23 15:00 04/07/23 15:00 Oxygen Flow Rate (L/min) 2 Oxygen Delivery Method Nasal Cannula Weight: 136 lb 10.986 oz Body Mass Index (BMI) 24.2 Intake & Output: Intake and Output for Last 24 Hours 04/05/23 04/06/23 04/07/23 23:59 23:59 23:59 Intake Total 3262 / 3262 650 / 650 Output Total 1000 / 1000 800 / 800 Balance 2262 / 2262 -150 / -150 Lab / Micro Data 03/29/23 10:53 Micro: Microbiology 03/29/23 10:53 Swab (Method) Nasal Screen MRSA/MSSA - Final Radiography Diagnostic Testing: Radiology Impression Spine X-Ray 04/06/23 15:50 IMPRESSION: Intraoperative localization of C3-4 disc space Electronically Signed: Jay Mcneil MD at 17:22 EDT , Spine X-Ray 04/06/23 17:02 IMPRESSION: Postsurgical changes as noted of the cervical spine. Electronically Signed: Neto Curiel DO at 17:28 EDT ,
[2023-04-07] MEDS: Ensure Surgery 237 ML LIQUID PO (16:47)
[2023-04-07 21:02] VITALS: BP 127/68; PULSE 98; RESP 16; TEMP 36.9; O2SAT 94
[2023-04-07] MEDS: guaiFENesin Dm 10 ML UDC PO (21:05)
[2023-04-08 02:57] VITALS: BP 125/67; PULSE 93; RESP 16; TEMP 36.6; O2SAT 93
[2023-04-08] MEDS: oxyCODONE 5 MG Tablet PO ×3 (02:58→13:16)
[2023-04-08] MEDS: BENZOCAINE/MENTHOL 1 LOZENGE MUCOUS MEM ×2 (02:58→09:55)
[2023-04-08] MEDS: Levothyroxine 100 MCG Tablet PO (05:51)
[2023-04-08 07:16] VITALS: O2SAT 86
[2023-04-08 09:45] VITALS: BP 150/78; PULSE 93; RESP 18; TEMP 36.7; O2SAT 92
[2023-04-08] MEDS: guaiFENesin Dm 10 ML UDC PO (09:56)
[2023-04-08] MEDS: Pantoprazole Sodium 40 MG Tablet PO (09:56)
--- NOTE | 2023-04-08 10:54 | PCM.PN.HOSP ---
Reason for Visit Reason for Visit: Diagnoses Cervicalgia (04/06/23) Encounter for other preprocedural examination (04/06/23) Subjective Subjective Patient reports she felt it took too long to get her pain medications and she is upset about that, has got them now. Reports her left shoulder is still heavy but is feeling better than yesterday. Objective Data Objective Data Vital Signs: Vital Signs Temp Pulse Resp BP Pulse Ox O2 Del Method O2 Flow Rate 98.1 F 93 18 150/78 H 92 Room Air 2 04/08/23 09:45 04/08/23 09:45 04/08/23 09:45 04/08/23 09:45 04/08/23 09:45 04/08/23 09:45 04/07/23 21:30 Oxygen Flow Rate (L/min) 2 Oxygen Delivery Method Room Air Weight: 62 kg Body Mass Index (BMI) 24.2 Intake & Output: Intake and Output for Last 24 Hours 04/06/23 04/07/23 04/08/23 23:59 23:59 23:59 Intake Total 3262 / 3262 2610 / 2610 Output Total 1000 / 1000 2460 / 2460 Balance 2262 / 2262 150 / 150 Lab / Micro Data 03/29/23 10:53 Micro: Microbiology 03/29/23 10:53 Swab (Method) Nasal Screen MRSA/MSSA - Final Physical Exam Narrative General: Alert, oriented, no apparent distress HEENT: Atraumatic, normocephalic Eyes: extraocular movements grossly intact Neck: Immobilization device in place still Respiratory: normal respiratory effort Cardiovascular: no edema appreciated GI: nondistended Extremities: Moving all extremities Neuro: No overt focal neurological deficits Psych: Irritable Assessment & Plan Assessment/Plan (1) Cervical pain: PLAN: Plan 1. Cervical pain with foraminal stenosis between C3 and C5 status post cervical fusion with an anterior approach ? Pain management per primary ? PT/OT -04/07: Patient postop day 1, management per primary, patient started on IV Decadron 2 mg every 6x2 -04/08: Feels her left shoulder is beginning to improve, management per primary. BP slightly elevated this a.m. however patient reports it took too long for her to get pain medication as suspect this is in part due to pain. Not high enough to need acute lowering. If discharged today can be addressed on outpatient basis. 2. Hypothyroidism ? Stable ? Continue with Synthroid -04/07: Most recent TSH 2.08, do not need repeat as this was on 03/29/2023 3. GERD ? Stable ? Continue with PPI -04/07: Started on clear liquids for lunch, looking for to eating, continue management -04/08: Tolerating diet 4. Tobacco abuse ? Discussed cessation ? Continue with nicotine patch -04/08: Has documented O2 sat of 86% however other O2 sats have been adequate on room air, unclear if this was good pleth but it has recovered independently, patient does have a known history of tobacco use, can always consider inhalers as needed though does not appear she takes this at home. Incentive spirometer added DVT: SCDs Charges/Coding Visit Charges Inpatient E&M: 61616 Subs Hosp L1
[2023-04-08] MEDS: guaiFENesin Dm 10 ML UDC 20 ML PO (13:07)
--- NOTE | 2023-04-08 13:10 | DCINST_ITS ---
Discharge Instructions Activity May shower in (days): 4 May resume sexual activity in: 4-6 weeks Lifting Restrictions: 15# Dressing / Incision Remove Dressing in: 3 days Cleanse incision/area with: Soap & Water Follow Up Care Test Results: Test results from this visit will be discussed in further detail at your follow- up appointment, if applicable. Discharge Plan Admission Admit Date/Time: 04/06/23 17:47 Attending Provider: Shayne Crow Primary Care Provider: Luciano Gonzalez Consulting Providers: Higinio Katz; Ailin Florian; Erwin Nur Discharge Orders/Prescriptions Prescriptions: No Action levothyroxine [Synthroid] 100 mcg tablet 100 mcg PO DAILY pantoprazole 40 mg tablet,delayed release (DR/EC) 40 mg PO DAILY oxycodone-acetaminophen 5-325 mg tablet 1 tab PO Q6H PRN (Reason: pain) 10 Days Qty: 40 0RF Referrals / Follow Up: Luciano Gonzalez MD [Primary Care Provider] - Disposition Disposition (needs filled in before D/C Order can be placed): Home, Self Care
--- NOTE | 2023-04-08 13:11 | PCM.DC.SUM ---
Providers Date of Admission: 04/06/23 Primary Care Physician: Dr. Luciano Gonzalez MD Attending Physician: Patient was admitted 2 days ago on the first. The date of admission she underwent anterior cervical fusion at C4-5 and C3-4 above previous two-level fusion. After surgery the patient reported relief of her neck sided neck pain that went to her left shoulder. However she also has suffered a C5 nerve palsy that started right after surgery. He has no dysesthesia however over the deltoid. But the deltoid will not fire and she has weakness of the biceps on the left as expected as seasick still fires but C5 does not. The overall incidence of this and anterior cervical fusions is about 4%. I have done over thousand of these and of never had 1. The literature on this suggest that 70% of these folks will recover entirely. It may take several months however. I will start her on physical therapy for the palsy to keep the shoulder mobile. In addition I will order a [employer] unit that has neuro stimulation to use on the deltoid and the biceps. Change the dressing yesterday and remove the drain the incision is healing well. She has directions regarding when to remove the dressing etc. She ready has an appointment to follow-up in the office. In addition I gave her oxycodone 01/06/2025's for pain to take home. I will see her again at the office. Consultations 04/06/23 18:05 Consult: Hospitalist Routine Consulting Provider: Stevie Gomez Reason for Consult: med management EMERGENT Consult: No Notified: No Date Notified: 04/06/23 Time Notified: 17:48 Method of Consult:: In-Person 04/06/23 21:30 Consult: Hospitalist Routine Consulting Provider: Erwin Nur Reason for Consult: medical management EMERGENT Consult: No Notified: Yes Date Notified: 04/06/23 Time Notified: 21:00 Method of Notification: Verbal Reason For Visit: ANTERIOR CERVICAL FUSION C4-5 AND C3-4/ LABS Diagnosis Discharge Diagnosis (1) Cervical pain: Status: Acute Code(s): M54.2 - Cervicalgia Medications at Discharge Home Medications levothyroxine 100 mcg tablet (Synthroid) 100 mcg PO DAILY THYROID 07/14/22 pantoprazole 40 mg tablet,delayed release 40 mg PO DAILY GERD 03/19/23 oxycodone-acetaminophen 5 mg-325 mg tablet 1 tab PO Q6H PRN pain 10 days #40 tabs 04/08/23 Weight / BMI Weight Weight: 136 lb 10.986 oz Body Mass Index (BMI) 24.2 ABG / Lab / Microbiology Data 03/29/23 10:53 Microbiology: Microbiology 03/29/23 10:53 Swab (Method) Nasal Screen MRSA/MSSA - Final D/C Instructions May shower in (days): 4 May resume sexual activity in: 4-6 weeks Cleanse incision/area with: Soap & Water Meaningful Use Info Meaningful Use Diagnoses (Choose all that apply): None applicable Discharge Plan Admission Admit Date/Time: 04/06/23 17:47 Attending Provider: Shayne Crow Primary Care Provider: Luciano Gonzalez Consulting Providers: Higinio Katz; Ailin Florian; Erwin Nur Discharge Orders/Prescriptions Prescriptions: No Action levothyroxine [Synthroid] 100 mcg tablet 100 mcg PO DAILY pantoprazole 40 mg tablet,delayed release (DR/EC) 40 mg PO DAILY oxycodone-acetaminophen 5-325 mg tablet 1 tab PO Q6H PRN (Reason: pain) 10 Days Qty: 40 0RF Referrals / Follow Up: Luciano Gonzalez MD [Primary Care Provider] - Disposition Disposition (needs filled in before D/C Order can be placed): Home, Self Care
[2023-04-08 14:00] VITALS: BP 131/71; PULSE 77; RESP 18; TEMP 36.9; O2SAT 92
== END 2023-04-08 14:50 | disposition home or self-care (01) | DRG 473 ==
LOC: ACINP 18:55 → MS3 04-07 07:14
PROVIDERS: Anesthesiology; Admitting Provider Orthopaedic Surgery; PCP Family Medicine; Referring Provider Orthopaedic Surgery; Visit Provider Orthopaedic Surgery
PROC: 0RG20K0 Fusion of 2 or more Cervical Vertebral Joints with Nonautologous Tissue Substitute, Anterior Approach, Anterior Column, Open Approach (ICD-10-PCS; CPT 22551; principal; 2023-04-06 12:30)
DX: M48.02 Spinal stenosis, cervical region (principal); M50.221 Other cervical disc displacement at C4-C5 level; E03.9 Hypothyroidism, unspecified; K21.9 Gastro-esophageal reflux disease without esophagitis; F17.210 Nicotine dependence, cigarettes, uncomplicated; G50.8 Other disorders of trigeminal nerve; Z98.1 Arthrodesis status
CPT/HCPCS: 36415; 72020; 82962; 83735; 84443; 85025; 86703; 86706; 86708; 86803; 87081; 88304; 94668; 97161; 99406; C1713; J7120; A4216; J2405; J3475

== ENCOUNTER 2023-05-12 08:58 | Outpatient (RCR) | payer BC, SELFPAY ==
--- NOTE | 2023-05-12 09:46 | HP.PTEVAL_ITS ---
Patient's Visit Information Visit Information Visit Information: ANGEL REYNA is a 58 year old F referred to Physical Therapy by YEIMY James with a diagnosis of Left Shoulder Pain. Date of Evaluation: 05/12/23 Physical Therapist: Nichelle Bradshaw DPT Visit Plan Frequency: 2x /Week Duration: 4 Weeks Plan: Focus on ROM and functional mobility flexion and abduction- caution ACDF 04/06/23 HEP Given IE: Posture, Table Walk Away, Wall Wash, Isometric Abd and Flexion Subjective Subjective: Patient reports that she had an ADCD Apr 06 and she woke up and left shoulder did not work- getting better but not all the way there yet- She feels that she is 70% better. She has been going to the pool a lot this last week which has been really helping. Initially it did not move but then it got really painful. Worst: 3/10 Agg: moving. The pain is locate around the whole shoulder-pain does radiate intot he collar bone but does not radiate down the a rm. Eases: nothing Best: 0/10. Describes the pain as sharp and shooting. No N/T in the fingers. She has had x-rays but no MRI. She has been denied an MRI. She was given a muscle stimulator and she has been using it 2x a day. She was able to put her hair in a pony tail yesterday but it hurt. She does not have any lifting restrictions from her neck. 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 She is not normally active. Right hand dominate. No ARGUETA, blurred vision, dizziness. She is having blood work when she leaves here due to just feeling icky. Sleep: not disturbed. Does report left hip pain- they did a bone graft of her left hip. PMHx/Meds: all listed in chart from ortho visit. Objective Objective: Posture: FH, RS- can correct with verbal cues but does not maintain Gait: good arm swing and trunk rotation Palpation: tender along anterior shoulder and into the pec and down the biceps and AC joint Observation: ACDF incision well healed ROM: Cervical: WFL but does have significand limitations with rotation to the left. 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: 45 Right 40 Left Balance/Special Test Scores Quick DASH Score: 34.0900 Goals Goal 1:: Patient will be I with HEP and progression Goal Time Frame: 4-6 Weeks Goal 2:: Patient will demo full AROM of the left shoulder Goal Time Frame: 4-6 Weeks Goal 3:: Patient will maintain proper posture t/o tx session to demo increased scap s/s Goal Time Frame: 4-6 Weeks Goal 4:: Patient will report 80% improvement Goal Time Frame: 4-6 Weeks Rehabilitation Potential Physical Therapy Diagnosis: Patient presents with hypomobility- she has decreased left UE ROM, scapular and UE strength/stabilization and muscular endurance leading to poor posture and inability to perform ADL's. Rehabilitation Potential: Good Anticipated Interventions Patient/Client Instruction: Educate patient on: Benefits of Fitness Program Therapeutic Exercise to Include: Strength training, Body mechanics, Postural training, Neuromotor development, Passive ROM, Active ROM, Dynamic Lumbar Stabilization and Scapular Strength/Stabilization For the Purpose of:: To improve muscle performance and motor function TENS: Yes Thermo therapy (hot pack): Yes Ultrasound (thermal/non thermal): Yes Text: Thank you for the opportunity to evaluate your patient. For Medicare and Medicare HMO plans, please review the plan of care and approve it. It will need to be FAXED BACK to us at [phone] for Medicare purposes. For Medicare only, by signing this I certify the plan of care. Please let me know if there are questions or concerns regarding this plan of ca re. Physician Signature: Date:
--- NOTE | 2023-09-02 08:23 | HP.PT.NRP ---
Patient Information Patient Information: ANGEL REYNA was seen in my office for initial evaluation on 05/12/23. The following Plan of Care was established for this patient: POC Established Initial Frequency: 2x /Week Initial Duration: 4 Weeks Anticipated Interventions Patient/Client Instruction: Educate patient on: Benefits of Fitness Program Therapeutic Exercise to Include: Strength training, Body mechanics, Postural training, Neuromotor development, Passive ROM, Active ROM, Dynamic Lumbar Stabilization and Scapular Strength/Stabilization For the Purpose of:: To improve muscle performance and motor function TENS: Yes Thermo therapy (hot pack): Yes Ultrasound (thermal/non thermal): Yes Last Seen Last Seen: This patient was last seen in our office . Pertinent comments regarding their Physical therapy will appear below: Patient has not attended PT since initial eval- appropriate to be d/c At this point I will be discontinuing this patient from physical therapy. I would be happy to see this patient again in the future if found appropriate by the physician. Thank you! Nichelle Bradshaw, DPT Balance/Gait/Functional tests Balance/Special Test Scores Quick DASH Score: 34.0900
== END 2023-05-12 19:00 | disposition home or self-care (01) ==
LOC: PT 08:58
PROVIDERS: PCP Family Medicine
DX: M75.102 Unspecified rotator cuff tear or rupture of left shoulder, not specified as traumatic (principal); Z98.1 Arthrodesis status
CPT/HCPCS: 97110; 97162

== ENCOUNTER → 2023-06-09 | Outpatient (CLI) | payer BC, SELFPAY ==
[2023-06-09 15:13] LABS: Absolute Lymphocyte Count 2.13 X10^3/uL (0.83-4.51); Absolute Neutrophil Count 9.8 X10^3/uL (2.0-7.7); Basophil# 0.12 X10^3/uL; Basophil% 0.9 % (0-1); Eosinophil# 0.42 X10^3/uL; Eosinophils% 3.1 % (0-5); Hemoglobin 14.4 g/dL (12.0-15.0); Lymphocyte # 2.13 X10^3/ul (0.83-4.51); Lymphocyte % 15.8 % (19-41); Mean Corp Hgb Conc 31.3 g/dL (32-36); Mean Corpuscular Hgb 30.1 pg (27.0-32.0); Mean Platelet Vol. 13.3 fl (6.2-12.0); Monocyte# 0.87 X10^3/uL; Monocyte% 6.5 % (0-10); NRBC Flagged by Analyzer 0 % (0-5); Neutrophil % 72.7 % (47-70); Platelet Count 227 K/mm3 (150-450); RBC Distribution Width CV 14.7 % (11.6-14.6); RBC Distribution Width SD 51.8 fl (35.1-43.9); Red Blood Count 4.79 M/mm3 (4.2-5.4); White Blood Count 13.5 K/mm3 (4.4-11.0)
[2023-06-09 15:40] LABS: ALB/GLOB Ratio 1.1 RATIO (0.9-2.4); AST(SGOT) 28 U/L (15-37); Alanine Aminotransfer ALT/SGPT 75 U/L (13-56); Albumin, Serum 3.6 g/dL (3.2-5.0); Alkaline Phosphatase 98 U/L (45-117); Anion Gap 3 (5-15); BUN 12 mg/dL (7-18); BUN/Creat Ratio 16.2 RATIO (10-20); Calcium,Total 9.2 mg/dL (8.5-10.1); Chloride 108 mmol/L (98-107); Creatinine, Serum 0.74 mg/dL (0.55-1.02); EST Glomerular Filtration Rate 85 mL/min (>60); Est Glom Filt Rate - Afr Amer 103 mL/min (>60); Globulin 3.4 g/dL (2.2-4.2); Glucose 113 mg/dL (74-106); Sodium Level 140 mmol/L (136-145)
== END | disposition home or self-care (01) ==
LOC: MFPLAB 11:36
PROVIDERS: PCP Family Medicine; Visit Provider Family Medicine
DX: R79.89 Other specified abnormal findings of blood chemistry (principal); R53.83 Other fatigue
CPT/HCPCS: 36415; 80053; 85025

== ENCOUNTER → 2023-06-15 | Outpatient (CLI) | payer BC, SELFPAY ==
--- NOTE | 2023-06-15 13:03 | ART_ITS ---
Reason For Study: Claudication Procedure A bilateral lower extremity continuous wave Doppler with analog waveform analysis,segmental pressures,and ankle brachial indexes with exercise. Left Segmental Pressures Left brachial= 132mmHg. Left calf = 148mmHg. Left posterior tibial artery = 155mmHg. Left dorsalis pedis artery = 131mmHg. Left digit = 131 mmHg. The left posterior tibial artery waveforms are triphasic. The left dorsalis pedis waveforms are triphasic. Right Segmental Pressures Right brachial= 144mmHg. Right calf = 154mmHg. Right posterior tibial artery = 145mmHg. Right dorsalis pedis artery = 161mmHg. Right digit = 133 mmHg. The right posterior tibial artery waveforms are triphasic. The right dorsalis pedis waveforms are triphasic. Indices The right ankle brachial index by the posterior tibial artery is 1.01. The right ankle brachial index by the dorsalis pedis is 1.12. The right digital-brachial index is 0.92. The right post exercise ankle brachial index is 1.05. The left ankle brachial index by the posterior tibial artery is 1.08. The left ankle brachial index by the dorsalis pedis is 0.91. The left digital-brachial index is 0.91. The left post exercise ankle brachial index is 1.01. VL/Lower Ext Art Exam w/ Exercise Interpretation Summary Right MARILIA 1.12, normal. TBI and Doppler/PVR waveforms of the right leg normal a t rest. Right lower extremity exhibits normal response to exercise. Left MARILIA 1.08, normal. TBI and Doppler/PVR waveforms of the left leg normal at rest. Left lower extremity exhibits normal response to exercise. Ordering Physician: Martin Huynh Referring Physician: Luciano Gonzalez Performed By: Olman Hernandez RVNegrita
== END | disposition home or self-care (01) ==
LOC: CVS 13:00
PROVIDERS: PCP Family Medicine; Referring Provider Surgery Trauma Surgery; Visit Provider Surgery Trauma Surgery
DX: I73.9 Peripheral vascular disease, unspecified (principal)
CPT/HCPCS: 93924

== ENCOUNTER 2023-08-28 20:30 | Emergency (ER) | payer BC, SELFPAY ==
[2023-08-28 20:30] VITALS: BP 172/90; PULSE 104; RESP 16; TEMP 36.2; O2SAT 98; BMI 24.7
[2023-08-28 20:32] VITALS: BMI 25.7
--- NOTE | 2023-08-28 20:35 | ED.RN ---
YEIMY GUARDADO NOTIFIED OF PT SYMPTOMS
--- NOTE | 2023-08-28 20:45 | CT_ITS ---
STUDY: CT BRAIN WITHOUT CONTRAST REASON FOR EXAM: Female, 58 years old. ALOC RADIATION DOSAGE (If Supplied By Facility): CTDIvol = ( 44.99 ) mGy, DLP = ( 779.24 ) mGycm TECHNIQUE: Transaxial CT imaging of the brain was performed without administration of intravenous contrast material. Individualized dose optimization techniques were used for this CT. COMPARISON: No relevant priors. FINDINGS: Normal soft tissue structures. Normal calvarium. Normal size ventricles and extra-axial spaces for the patient''s age. Normal white matter tracts of the cerebral hemispheres. Normal basal ganglia and thalami. Normal brainstem. Normal cerebellum. There is no intracranial hemorrhage. There are no findings of an acute ischemic infarction. Normal visualized paranasal sinuses. CT/Brain/Head without Contrast IMPRESSION: Normal unenhanced CT scan of the brain. Electronically Signed: Noah Argueta MD ([place]) at 21:08 EST ,
--- NOTE | 2023-08-28 20:46 | EKG12_ITS ---
Test Reason : DIZZINESS Blood Pressure : / mmHG Vent. Rate : 096 BPM Atrial Rate : 096 BPM P-R Int : 210 ms QRS Dur : 072 ms QT Int : 358 ms P-R-T Axes : 072 005 058 degrees QTc Int : 452 ms Sinus rhythm with 1st degree A-V block Possible Left atrial enlargement Cannot rule out Anteroseptal infarct (cited on or before 04-MAR-2023) Abnormal ECG Confirmed by AMANDA KABA, LIU ([id number]), sound editor JEFFY NIELSEN ([id number]) on 09/07/2023 8:52:00 AM Referred By: SHADI Confirmed By:LIU PATEL MD
--- NOTE | 2023-08-28 20:47 | EDS_ITS ---
HPI History of Present Illness Chief Complaint: Dizziness Informant: patient and spouse/S.O. Onset/Context/Timing Onset: Today Context: Sudden Onset Timing: Continuous Current Severity: Gone Maximum Severity: Moderate Narrative Narrative: 58-year-old female history of COPD and prior cervical fusion and prior cholecyst ectomy. [place] fine recently. No recent illness. No recent falls or head trauma. Went to a movie today. Her and her significant other were at [employer] checking out while in the [employer] checkout line she became acutely confused and was looking up at the ceiling asking for her receipt and where was her receipt. Significant other said she was out of it. No fall injury or trauma. They lowered her in her chair. This episode lasted around 10 minutes. She is never had anything like this before. It is since resolved. Other than being tired she says she feels fine. No recent illness. Denies any vomiting or diarrhea. Patient has chronic headaches. She is on no blood thinners. No dysuria. No fever. Prior similar symptoms: No Recent Illness/Hospitalization: No PFSH PFSH Medical History Alcohol use Anemia Anxiety Cervical stenosis (uterine cervix) (~2014) delivery delivered (~1990) Chronic cough Foraminal stenosis of cervical region Herniated nucleus pulposus, C4-5 left History of hiatal hernia History of steroid therapy History of stress test History of ulceration Hx of emphysema Hypothyroidism Leg cramps Loss of hearing Marijuana use Peripheral arterial disease Post-menopausal Smoker Spinal stenosis of lumbar region Home Medications levothyroxine 100 mcg tablet (Synthroid) 100 mcg PO DAILY THYROID 07/14/22 [History Last Taken 04/06/23] pantoprazole 40 mg tablet,delayed release 40 mg PO DAILY GERD 03/19/23 [History Last Taken 04/06/23] nortriptyline 50 mg capsule mg PO 04/21/23 [History Last Taken Unknown] albuterol sulfate 90 mcg/actuation aerosol inhaler inhalation 06/11/23 [History Last Taken Unknown] budesonide-formoterol HFA 80 mcg-4.5 mcg/actuation aerosol inhaler inhalation 06/11/23 [History Last Taken Unknown] Allergy/AdvReac Type Severity Reaction Status Date / Time No Known Allergies Allergy Verified 06/11/23 08:15 Family History Other CAD (coronary artery disease) Diabetes Thyroid disorder Surgical History History of esophagogastroduodenoscopy (EGD) History of tympanoplasty Hx of cervical spine surgery Hx of cholecystectomy Hx of myringotomy S/P laparoscopic procedure (~2016) Social History Smoking Status: Current every day smoker tobacco type: cigarettes alcohol intake: current alcohol intake frequency: a few times a week ROS ROS ED ROS Narrative Denies recent illness. Review of Systems ROS Unobtainable: Denies due to encephalopathy Constitutional Constitutional ED: Denies chills or fever(s) Eyes Eyes: Denies blurry vision ENT ENT ED: Denies ear pain, rhinorrhea or sore throat Cardiovascular Cardiovascular: Denies chest pain or palpitations Respiratory/Chest Respiratory/Chest: Denies cough or dyspnea Gastrointestinal Gastrointestinal: Denies abdominal pain, diarrhea, nausea or vomiting Genitourinary Genitourinary ED: Denies dysuria or hematuria Musculoskeletal Musculoskeletal: Denies arthralgias or back pain Integumentary Denies abscess Neurologic Neurologic: Reports headache(s); Denies paresthesias or weakness Psychiatric Psychiatric: Denies anxiety or depression Endocrine Endocrinology: Denies cold intolerance Hematologic/Lymphatic Hematologic/Lymphatic: Reports none Allergic/Immunologic Allergic/Immunologic ED: Denies mouth swelling, tongue swelling or urticaria EXAM Physical Exam Narrative Exam Narrative: Well-appearing 58-year-old female. Vital signs are stable afebrile. Pulse ox 98% on room air no signs hypoxia. H EENT exam unremarkable. Pupils round reactive light. No facial droop. Normal speech. No signs of trauma. Neck nontender. Lungs clear to auscultation bilaterally. Heart regular rhythm no murmur. Rate about 100. Chest wall nontender. Abdomen soft nontender. Moving all 4 extremities. 5 out of 5 plate developer strength. Dorsi plantarflexion intact. Neurologically she is awake alert. Answering questions and acting normally. Knows where she is at. Knows the month, year and upcoming holiday. Has a completely normal neurologic exam. NIH is 0. Const Vital Signs: 08/28/23 20:30 Temperature 97.2 F L Temperature Source Temporal Pulse Rate 104 H Respiratory Rate 16 Blood Pressure 172/90 H Blood Pressure Mean 117 Pulse Ox 98 Oxygen Delivery Method Room Air Positive well nourished and well developed; Negative for cachectic, contractures or unkempt General Appearance ED: well developed; Negative for unkempt, cachectic, contractures, cyanotic or pallor Nutritional Appearance: Negative for cachectic HEENT Reports moist mucous membranes; Denies dry mucous membranes Negative for trauma or tenderness Mouth ED: No dry mucous membranes Mouth: No dry mucous membranes Eyes PERRL and EOMs intact bilaterally General Eye ED: Negative for pale conjunctiva, scleral icterus or other Neck no lymphadenopathy, supple and no JVD General: Negative for tenderness Lymph Lymphatic: Negative for other Chest Wall inspection of chest normal and palpation of chest normal Chest: Negative for other Resp normal respiratory effort and clear to auscultation bilaterally Effort and Inspection: Negative for retractions Auscultation: Negative for rales, rhonchi or wheezes Cardio regular rate, regular rhythm, S1 normal heart sound, S2 normal heart sound and no murmurs Palpation: Negative for palpable S3 or palpable S4 Rate: Negative for bradycardia or tachycardic Rhythm: Negative for abnormal rhythm GI normal to inspection, nondistended, normoactive bowel sounds, non-tender, non- distended and no masses Inspection: Negative for abdominal distention Auscultation: normoactive bowel sounds Palpation: soft; Negative for tender, guarding, mass or rebound tenderness present Back/Spine no CVA tenderness General Back: Negative for CVA tenderness Cervical Spine: Negative for cervical spine tenderness Thoracic Spine / Upper Back: Negative for thoracic spinal tenderness Lumbar Spine / Lower Back: Negative for lumbar spinal tenderness Extremity normal to inspection General Extremety ED: Negative for edema or tenderness General Extremity: Negative for edema Neuro oriented x3, CN's II-XII intact bilaterally and no sensory deficits noted Sensorium / Orientation: alert; Negative for orientation impaired, lethargic or stuporous Sensory Exam: No sensory level loss detected Motor Exam: strength 5/5 throughout; Negative for general weakness or strength abnormal Psych mental status grossly normal Appearance: Negative for unkempt Attitude: No agitated Mood & Affect: Negative for depressed, anxious or tearful Skin no rashes or lesions noted, no wounds and skin turgor normal General Skin Exam: elasticity normal; Negative for jaundice or pallor Lesions: No lesion noted Rashes: No rashes noted Trauma: Negative for abrasion Wounds: Negative for wounds noted MDM MDM MDM Narrative Medical decision making narrative: 58-year-old female with a transient episode of confusion. Has since totally resolved. No seizure activity. Has a completely normal exam at this time. She is awake alert. Acting appropriately. CAT scan labs are pending. Repeat exam remains normal. Patient doing well at 9:19 PM. She is awake alert. Answering questions following commands. Exam normal and unchanged. Went over her test results. She will be discharged home with outpatient follow-up. History & Record Review Discussion w/independent historian: Patient and Family Additional record(s) reviewed:: Prior inpatient record, Prior outpatient record, Prior ED visit and Prior labs Lab Data Attestation: I reviewed the patient's lab results. Lab results narrative: CBC shows a white count of 9. H&H is 16 and 50. Platelets 228. Chemistries potassium 3.3. Gap 4. Normal BUN of 15 creatinine 0.79. Liver enzymes normal. CT brain no acute abnormality. Interpreted by radiologist. Reviewed by me. Chest x-ray normal. Labs: Laboratory Results - last 24 hr 08/28/23 20:40 WBC 9.0 RBC 5.39 Hgb 16.0 H Hct 50.0 H MCV 92.8 MCH 29.7 MCHC 32.0 RDW Std Deviation 47.8 H RDW Coeff of Joellen 14.0 Plt Count 228 MPV 11.9 Immature Gran % (Auto) 0.400 Neut % (Auto) 47.9 Lymph % (Auto) 39.2 Dawson % (Auto) 9.7 Eos % (Auto) 1.8 Baso % (Auto) 1.0 Absolute Neuts (auto) 4.3 Absolute Lymphs (auto) 3.51 Nucleated RBC % 0 Sodium 142 Potassium 3.3 L Chloride 110 H Carbon Dioxide 28.0 Anion Gap 4 L BUN 15 Creatinine 0.79 Estim Creat Clear Calc 63.43 Est GFR (MDRD) Af Amer 96 Est GFR (MDRD) Non-Af 79 BUN/Creatinine Ratio 19.0 Glucose 114 H Calcium 8.7 Total Bilirubin 0.30 AST 29 ALT 45 Alkaline Phosphatase 98 Total Protein 7.4 Albumin 4.0 Globulin 3.4 Albumin/Globulin Ratio 1.2 Radiography Chest X-Ray - ED: 1 View, Read by ED Physician, Heart, Lungs, Mediastinum, Bony Structures, No Acute Disease and Chronic Changes Diagnostic Testing: Clinical Impression(s) from Imaging Studies Brain CT 08/28/23 20:45 IMPRESSION: Normal unenhanced CT scan of the brain. Electronically Signed: Noah Argueta MD (Brooks) at 21:08 EST Reading Location ID and State: [facility] / [place] , Service support , Chest x-ray, portable, single view shows no acute abnormality. Normal cardiac silhouette. Normal lung corona. Interpreted by myself. Rhythm Strip Rhythm Strip: Sinus Rhythm Rate: 96 Ectopy: None EKG Initial EKG: Attestation: I personally reviewed and interpreted this EKG as follows: Interpretation: Sinus Rhythm and No Acute Injury Pattern Comments: Normal sinus rhythm rate of 96. First-degree AV block with a SD interval of 210. No acute signs of [place] nor ischemia nor dysrhythmia. Unchanged from prior EKG from February of this year. Prior EKG tracings: available for review Prior: Unchanged Discharge Plan Triage Chief Complaint: Dizziness ED Provider: Best Hartley Dx/Rx/DC Orders Clinical Impression: History of COPD, Altered level of consciousness Instructions: ED ALOC Prescriptions: No Action levothyroxine [Synthroid] 100 mcg tablet 100 mcg PO DAILY nortriptyline 50 mg capsule PO pantoprazole 40 mg tablet,delayed release (DR/EC) 40 mg PO DAILY budesonide-formoterol 80-4.5 mcg/actuation HFA aerosol inhaler inhalation albuterol sulfate 90 mcg/actuation HFA aerosol inhaler inhalation Primary Care Provider: Luciano Gonzalez Referrals: Lcuiano Gonzalez MD [Primary Care Provider] - As soon as possible Activity Restrictions/Additional Instructions: Your exam now is normal. Your CAT scan of your head, EKG, chest x-ray and labs are unremarkable. No specific cause for what happened. Follow-up with your primary care physician return if feeling worse. Disposition Disposition: Home, Self Care
--- NOTE | 2023-08-28 20:50 | RAD_ITS ---
STUDY: X-RAY CHEST REASON FOR EXAM: Female, 58 years old. ms change TECHNIQUE: Single AP portable view of the chest. COMPARISON: 03/04/2023 FINDINGS: Fusion hardware of the lower cervical spine. The lungs are clear and expanded. There is no demonstrated pleural abnormality. Normal size heart. Normal mediastinum and jack. Normal visualized pulmonary arteries. Normal visualized aortic arch and descending thoracic aorta. Normal visualized thoracic spine. Normal visualized ribs, clavicles, and shoulders. There is no demonstrated abnormality of the visualized soft tissue structures of the upper abdomen. RAD/Chest 1 View (Portable) IMPRESSION: Nonacute portable x-ray examination of the chest. Electronically Signed: Noah Argueta MD (Brooks) at 21:23 EST ,
[2023-08-28 20:53] LABS: Absolute Lymphocyte Count 3.51 X10^3/uL (0.83-4.51); Absolute Neutrophil Count 4.3 X10^3/uL (2.0-7.7); Basophil# 0.09 X10^3/uL; Eosinophil# 0.16 X10^3/uL; Eosinophils% 1.8 % (0-5); Lymphocyte # 3.51 X10^3/ul (0.83-4.51); Lymphocyte % 39.2 % (19-41); Mean Corpuscular Hgb 29.7 pg (27.0-32.0); Mean Corpuscular Volume 92.8 fL (81-99); Mean Platelet Vol. 11.9 fl (6.2-12.0); Monocyte# 0.87 X10^3/uL; Monocyte% 9.7 % (0-10); NRBC Flagged by Analyzer 0 % (0-5); Neutrophil # 4.29 X10^3/uL (2.7-7.7); Neutrophil % 47.9 % (47-70); Platelet Count 228 K/mm3 (150-450); RBC Distribution Width SD 47.8 fl (35.1-43.9); Red Blood Count 5.39 M/mm3 (4.2-5.4)
[2023-08-28 21:08] LABS: ALB/GLOB Ratio 1.2 RATIO (0.9-2.4); AST(SGOT) 29 U/L (15-37); Alanine Aminotransfer ALT/SGPT 45 U/L (13-56); Alkaline Phosphatase 98 U/L (45-117); Anion Gap 4 (5-15); BUN 15 mg/dL (7-18); Calcium,Total 8.7 mg/dL (8.5-10.1); Chloride 110 mmol/L (98-107); Creatinine, Serum 0.79 mg/dL (0.55-1.02); EST Glomerular Filtration Rate 79 mL/min (>60); Est Glom Filt Rate - Afr Amer 96 mL/min (>60); Estimated Creatinine Clearance 63.43 ml/min; Globulin 3.4 g/dL (2.2-4.2); Glucose 114 mg/dL (74-106); Potassium 3.3 mmol/L (3.5-5.1); Protein, Total 7.4 g/dL (6.4-8.2); Sodium Level 142 mmol/L (136-145)
[2023-08-28 21:21] VITALS: BP 154/85; PULSE 93; RESP 16; O2SAT 97
[2023-08-28 21:25] VITALS: BP 154/85; PULSE 93; RESP 16; O2SAT 97
== END 2023-08-28 21:30 | disposition home or self-care (01) ==
PROVIDERS: Emergency Provider Emergency Medicine; PCP Family Medicine; Visit Provider Emergency Medicine
DX: R40.4 Transient alteration of awareness (principal); J44.9 Chronic obstructive pulmonary disease, unspecified; R42 Dizziness and giddiness; R51.9 Headache, unspecified; F17.210 Nicotine dependence, cigarettes, uncomplicated; E03.9 Hypothyroidism, unspecified; Z98.1 Arthrodesis status
CPT/HCPCS: 70450; 71045; 80053; 85025; 93005; 99284; A4216

== ENCOUNTER → 2023-08-31 | Outpatient (CLI) | payer BC, SELFPAY ==
[2023-08-31 17:38] LABS: Hematocrit 49.2 % (37-47); Hemoglobin 15.8 g/dL (12.0-15.0); Mean Corp Hgb Conc 32.1 g/dL (32-36); Mean Corpuscular Hgb 29.5 pg (27.0-32.0); Mean Corpuscular Volume 91.8 fL (81-99); Mean Platelet Vol. 11.8 fl (6.2-12.0); Platelet Count 218 K/mm3 (150-450); RBC Distribution Width CV 13.8 % (11.6-14.6); RBC Distribution Width SD 46.8 fl (35.1-43.9); Red Blood Count 5.36 M/mm3 (4.2-5.4); White Blood Count 8.1 K/mm3 (4.4-11.0)
[2023-08-31 17:41] LABS: ALB/GLOB Ratio 1.1 RATIO (0.9-2.4); AST(SGOT) 24 U/L (15-37); Alanine Aminotransfer ALT/SGPT 34 U/L (13-56); Alkaline Phosphatase 95 U/L (45-117); Anion Gap 3 (5-15); BUN 11 mg/dL (7-18); BUN/Creat Ratio 14.8 RATIO (10-20); Calcium,Total 9.1 mg/dL (8.5-10.1); Chloride 110 mmol/L (98-107); Creatinine, Serum 0.74 mg/dL (0.55-1.02); EST Glomerular Filtration Rate 85 mL/min (>60); Est Glom Filt Rate - Afr Amer 103 mL/min (>60); Globulin 3.5 g/dL (2.2-4.2); Glucose 97 mg/dL (74-106); Potassium 4.2 mmol/L (3.5-5.1); Protein, Total 7.5 g/dL (6.4-8.2); Sodium Level 141 mmol/L (136-145)
== END | disposition home or self-care (01) ==
LOC: MFPLAB 16:41
PROVIDERS: PCP Family Medicine; Visit Provider Family Medicine
DX: E03.9 Hypothyroidism, unspecified (principal); E55.9 Vitamin D deficiency, unspecified
CPT/HCPCS: 36415; 80053; 84443; 85027

== ENCOUNTER 2023-09-03 16:09 | Outpatient (CLI) | payer BC, SELFPAY ==
[2023-09-03 17:42] LABS: Vitamin D,25 Hydroxy 23.6 ng/mL
== END 2023-09-03 23:59 | disposition home or self-care (01) ==
LOC: MFPLAB 16:10
PROVIDERS: PCP Family Medicine; Visit Provider Family Medicine
DX: E03.9 Hypothyroidism, unspecified (principal); E55.9 Vitamin D deficiency, unspecified
CPT/HCPCS: 36415; 82306

== ENCOUNTER → 2023-10-18 | Outpatient (CLI) | payer BC, SELFPAY ==
--- OUTSIDE RECORDS SUMMARY | 2023-10-18 11:36 | XMS RPT_ITS | CCD ---
Author Name Unknown Address [address] [place] [address] Organization [facility] Care Team Providers Care Band Saw Runner Name Role Phone LUCIANO GLORIA Primary Care Unavailable RENEA MAHAN Attending Unavailelli Gloria MD, Luciano Munroe Primary Care Provider RENEA MAHAN Referring UnavailLEDY Peterson Admitting Unavailable SYDNEE BA Consulting Unavailable LUCIANO GLORIA Primary Care Unavailable TALIA MORIN Attending Unavailable PROVIDER, UNKNOWN Referring Unavailable LUCIANO GLORIA Primary Care Unavailable BLESSING DOWELL Attending Unavailable MARTA MORRISON Admitting Unavailable MARTA MORRISON Attending Unavailable LUCIANO GLORIA Primary Care Unavailable PROVIDER, UNKNOWN Referring Unavailable LUCIANO GLORIA Primary Care Unavailable JESUS RAM Attending Unavailable FAIZAN, LUCIANO Munroe Primary Care Unavailable JESUS RAM Admitting Unavailable LUCIANO GLORIA Primary Care Unavailable MARTA MORRISON Attending Unavailable LUCIANO GLORIA Primary Care Unavailable DEBORAH SAHU Referring Unavailable LUCIANO GLORIA Primary Care Unavailable LUCIANO GLORIA Primary Care Unavailable MARTA MORRISON Referring Unavailable LUCIANO GLORIA Primary Care Unavailable MARTA MORRISON Attending Unavailable CONCETTA ARGUETA Referring Unavailable OLGA HARKINS Attending Unavailable LUCIANO GLORIA Primary Care Unavailable Medications Current Medications Medication Drug Class(es) Dates Sig (Normalized) Sig (Original) Budesonide / formoterol (1 source) Corticosteroid, beta2-Adrenergic Agonist Start: 05-31-2023 End: 07-01-2023 take 2 puff(s) by inhalation twice daily budesonide-formot amie (SYMBICORT) 80-4.5 mcg/actuation inhaler Inhale 2 Puffs as instructed twice daily. 10.2 g 0 05/31/2023 07/01/2023 Active Completed/Discontinued Medications Medication Drug Class(es) Dates Sig (Normalized) Sig (Original) acetaminophen 325 mg oral tablet (5 sources) Start: 05-31-2023 take 2 tablets by mouth every six hours as needed acetaminophen (TYLENOL) 325 mg tablet Take 2 tablets by mouth every 6 hours as needed for fever (specify) or pain. 0 05/31/2023 Active Problems Active Problems Problem Classification Problem Date Documented Da te Episodic/Chronic Abdominal pain (14 sources) Right upper quadrant pain; Translations: [Right upper quadrant pain] Onset: 07-30-2008 03-31-2023 Episodic Gastroduodenal ulcer (except hemorrhage) (6 sources) Multiple gastric ulcers; Translations: [Gastric ulcer, unspecified as acute or chronic, without hemorrhage or perforation] Onset: 05-05-2023 05-05-2023 Chronic Gastroduodenal ulcer (except hemorrhage) (1 source) Acute gastric ulcer without hemorrhage or perforation; Translations: [Acute gastric ulcer without hemorrhage or perforation] Onset: 03-29-2023 Episodic Other gastrointestinal disorders (1 source) Abdominal distension (gaseous); Translations: [Abdominal distension (gaseous)] Onset: 03-29-2023 Episodic Other lower respiratory disease (1 source) Shortness of breath; Translations: [SOB (shortness of breath)] Onset: 05-27-2023 Episodic Other lower respiratory disease (1 source) Hypoxemia; Translations: [Hypoxia] Onset: 05-31-2023 Episodic Pneumonia (except that caused by tuberculosis or sexually transmitted disease) (3 sources) Pneumonia, unspecified organism; Translations: [Infective pneumonia] Onset: 05-27-2023 05-27-2023 Episodic Residual codes; unclassified (1 source) Acquired absence of other specified parts of digestive tract; Translations: [S/P laparoscopic cholecystectomy] Onset: 05-27-2023 Episodic Substance-related disorders (7 sources) Tobacco user; Translations: [Nicotine dependence, unspecified, uncomplicated] Onset: 07-30-2008 03-05-2023 Chronic Thyroid disorders (7 sources) Hypothyroidism; Translations: [Hypothyroidism, unspecified] Onset: 03-05-2023 03-05-2023 Chronic Past or Other Problems Problem Classification Problem Date Documented Da te Episodic/Chronic Abdominal hernia (5 sources) Umbilical hernia; Translations: [Umbilical hernia without obstruction or gangrene] Onset: 07-30-2008 07-30-2008 Episodic Biliary tract disease (10 sources) Biliary dyskinesia; Translations: [Other specified diseases of gallbladder] Onset: 03-31-2023 03-31-2023 Episodic Genitourinary symptoms and ill-defined conditions (5 sources) Blood in urine; Translations: [Hematuria, unspecified] Onset: 07-30-2008 07-30-2008 Episodic Nonspecific chest pain (1 source) Chest pain; Translations: [Chest pain, unspecified] Onset: 07-30-2008 07-30-2008 Episodic Other diseases of kidney and ureters (5 sources) Hydronephrosis; Translations: [Unspecified hydronephrosis] Onset: 12-04-2015 12-04-2015 Episodic Results Test Name Value Interpretation Reference Range Facil ity Vital Signs Date Time Vital Sign Value Performing Clinician Faci lity 05-25-2023 15:30-0400 SaO2% (BldA) [Mass fraction] 92 % Marta Morrison MD Work Phone: [facility] 05-25-2023 14:45-0400 Diastolic blood pressure 65 mm[Hg] Marta Morrison MD Work Phone: [facility] 05-25-2023 14:45-0400 Heart rate 93 /min Marta Morrison MD Work Phone: [facility] 05-25-2023 14:45-0400 Respiratory rate 12 /min Marta Morrison MD Work Phone: [facility] 05-25-2023 14:45-0400 Systolic blood pressure 138 mm[Hg] Marta Morriosn MD Work Phone: [facility] 05-25-2023 14:30-0400 Body temperature 97.9 [degF] Marta Morrison MD Work Phone: [facility] 05-25-2023 10:29-0400 Body height 160 cm Marta Morrison MD Work Phone: [facility] 05-25-2023 10:29-0400 Body weight 61.24 kg Marta Morrison MD Work Phone: [facility] 05-05-2023 10:54-0400 Body height 160 cm Pacc 2 Work Phone: [facility] 05-05-2023 10:54-0400 Body weight 61.24 kg Pacc 2 Work Phone: [facility] 05-05-2023 10:54-0400 Diastolic blood pressure 82 mm[Hg] Pacc 2 Work Phone: [facility] 05-05-2023 10:54-0400 Heart rate 82 /min Pacc 2 Work Phone: [facility] 05-05-2023 10:54-0400 Respiratory rate 17 /min Pacc 2 Work Phone: [facility] 05-05-2023 10:54-0400 Systolic blood pressure 120 mm[Hg] Pacc 2 Work Phone: [facility] 03-31-2023 09:11-0400 Body height 160 cm Marta Morrison MD Work Phone: [facility] 03-31-2023 09:11-0400 Body weight 61.69 kg Marta Morrison MD Work Phone: [facility] 03-31-2023 09:11-0400 Diastolic blood pressure 82 mm[Hg] Marta Morrison MD Work Phone: [facility] 03-31-2023 09:11-0400 Heart rate 78 /min Marta Morrison MD Work Phone: [facility] 03-31-2023 09:11-0400 Systolic blood pressure 164 mm[Hg] Marta Morrison MD Work Phone: [facility] Encounters Encounter Date Encounter Type Care Provider Facility Start: 08-03-2023 End: 08-03-2023 ambulatory CONCETTA ARGUETA Facility:[facility] Start: 06-08-2023 End: 06-08-2023 ambulatory LUCIANO GLORIA Facility:[facility] Start: 06-08-2023 End: 06-08-2023 Patient encounter procedure Marta Morrison MD Work Phone: General Surgery Plan of Treatment Date Care Activity Detail Author Start: 05-31-2026 Diabetes Screening Diabetes Screening [facility] Start: 05-12-2026 Diabetes Screening Diabetes Screening [facility] Start: 03-06-2026 DIABETES SCREEN DIABETES SCREEN [facility] Start: 05-07-2023 Influenza vaccination [facility] Start: 05-05-2023 End: 07-05-2023 CBC W Auto Differential panel - Blood CBC + DIFF Lab Routine Tobacco use disorder Multiple gastric ulcers Biliary dyskinesia Hypothyroidism, unspecified type Pre-op evaluation Expected: 05/05/2023, Expires: 07/05/2023 [facility] Work Phone: Immunizations Immunization Date Immunization Notes Care Provider Lorraine ortiz 07-23-2014 influenza virus vacc ine, unspecified formulation Deborah Sahu PA-C Work Phone: [facility] Payers Date Payer Category Payer Unknown [id number] 2022 Unknown [employer] P[employer] [id number] 2022-Present [phone] [address] [place] [address] PPO [id number] Social History Date Type Detail Facility Start: 05-11-2021 End: 05-27-2023 Tobacco smoking status NHIS Smokes tobacco daily [facility] History of tobacco use Cigarette Smoker C [facility] Start: 05-11-2021 End: 03-05-2023 Cigarettes smoked current (pack per day) - Reported 1 [facility] Start: 05-11-2021 End: 05-27-2023 Tobacco use and exposure Smokeless tobacco non-user [facility] Start: 03-31-2023 End: 06-04-2023 Alcohol intake Ex-drinker (finding) [facility] Start: 03-05-2023 End: 03-31-2023 Tobacco use panel [facility] National Score (1-10 0), lower number is lower risk 69 [facility] Start: 1965 Sex Assigned At Not on file C [facility] Clinical Notes 03-05-2023 to 08-03-2023 Marta Morrison MD - 06/08/2023 9:36 AM EDT Note Date & Type Note Facility 08-03-2023 Note HNO ID: [id number] Author: Olga Harkins MD Service: ? Author Type: Physician Type: Progress Notes Filed: 08/03/2023 2:28 PM Note Text: [facility] OFFICE VISIT CONSULT 08/03/2023 Patient Name: Katie Vasquez PRIMARY CARE PHYSICIAN: Luciano Gloria MD REASON FOR CONSULT: COPD, smoker, pneumonia, esophageal stricture REFERRING PHYSICIAN: Concetta Argueta APRN.* My final recommendations will be communicated to the requesting health care provider by way of the shared medical record for internal providers or by letter via US mail for external providers. CHIEF COMPLAINT: COPD, smoker, pneumonia, esophageal stricture HISTORY OF PRESENT ILLNESS: Katie Vasquez is a 58 year old female, BMI 25.15 kg/m2 with a PMH significant for everyday smoking, COPD, recently admitted to [facility] for shortness of breath and diagnosed with acute hypoxemic respiratory failure secondary to COPD exacerbation and pneumonia here for follow-up Patient feels better compared to when she was in the hospital Does have daily cough and sputum production. Shortness of breath on exertion Occasional wheezing She was on Symbicort and Spiriva that she used for 1 month and then she did not have it refilled so she has not been using it since June Did not feel the major improvement with inhalers She continues to smoke- Had spinal surgery followed by gallbladder surgery within the last several months Has esophageal stricture status post dilatation by GI/Dr. Dowell Symptoms mild, intermittent, occur mainly on exertion and relieved by inhalers albuterol CT scan chest while in hospital May 2023 ruled out PE Airspace disease in the upper lobes right more than left. Secretions in bilateral lower lobe segmental bronchi with consolidation in lower lobes suggestive of aspiration versus atelectasis Emphysema No PFTs on file [facility] Dyspnea Scale: 0. Not troubled by breathlessness except on strenuous exercise Short of breath when hurrying or walking up a slight hill Walks slower than contemporaries on the level because of breathlessness, or has to stop for breath when walking at own pace Stops for breath after about 100 m or after a few minutes on the level Too breathless to leave the house, or breathless when dressing or undressing Environmental/ Occupational Exposure History: Pets: No birds Asbestos: No significant exposure Silica: No significant exposure Wilkin: No significant exposure Mold: No significant exposure Hot tub: No significant exposure Fumes: No significant exposure Metal dust: No significant exposure Beryllium: No significant exposure Dust: No significant exposure Medications: No relevant exposure for interstitial lung diseases PAST MEDICAL HISTORY Diagnosis Date Anxiety Biliary dyskinesia 05/25/2023 Dr. Morrison Hypothyroidism S/P 4 S/P ear surgery Spinal stenosis PAST SURGICAL HISTORY Procedure Laterality Date DELIVERY ONLY x4 EGD W/O BRSH SPEC VARICIES INJ LAPS SURG CHOLECYSTECTOMY W/CHOLANGIOGRAPHY 05/25/[address] Morrison PAST SURGICAL HISTORY OF 12/04/2015 Left Robotic Pyeloplasty PAST SURGICAL HISTORY OF Right ear; graft; hole in eardrum PAST SURGICAL HISTORY OF Left 2021 tubes placed in ear SPINE SURGERY HX cervical spine - C5-7 in ~ 2015 and on 04/06/2023 C3-5 fusions FAMILY HISTORY Problem Relation Age of Onset Anesthesia Problems No Family History Blood Clots No Family History Clotting Disorder No Family History no pertinent family history Social History Tobacco Use Smoking status: Every Day Packs/day: 1.00 Years: 43.00 Additional pack years: 0.00 Total pack years: 43.00 Types: Cigarettes Smokeless tobacco: Never Tobacco comments: Started age 15 Vaping Use Vaping Use: Never used Substance Use Topics Alcohol use: Not Currently Drug use: Never ALLERGIES ALLERGIES No Known Allergies CURRENT OUTPATIENT MEDICATIONS acetaminophen (TYLENOL) 325 mg tablet Take 2 tablets by mouth every 6 hours as needed for fever (specify) or pain. albuterol HFA (PROAIR HFA) 90 mcg/actuation inhaler Inhale 2 Puffs every 6 hours as needed for wheezing/shortness of breath. Take as directed guaiFENesin (MUCINEX) 600 mg 12 hr tablet Take 1 tablet by mouth twice daily as needed for cold/allergy symptoms. levothyroxine (SYNTHROID) 100 mcg tablet daily before breakfast. pantoprazole DR (PROTONIX) 40 mg tablet Take 1 tablet by mouth once daily. Take Protonix 4 hours after taking Levothyroxine tiotropium (SPIRIVA WITH HANDIHALER) 18 mcg inhalation capsule Inhale 1 capsule as instructed once daily. budesonide-formoterol (SYMBICORT) 80-4.5 mcg/actuation inhaler Inhale 2 Puffs as instructed twice daily. ibuprofen (MOTRIN) 600 mg tablet Take 1 tablet by mouth every 6 hours as needed for pain. REVIEW OF SYSTEM (more content not included)... [facility] 06-08-2023 Note HNO ID: [id number] Author: Marta Morrison MD Service: ? Author Type: Physician Type: Progress Notes Filed: 06/08/2023 9:45 AM Note Text: POST OP S/p lap liliana 05/25 HPI: was in er 2 days post op dx'd with pneumonia - sx from that much improved. Preop gi sx resolved, no c/o opain VITALS: [facility] 07/23/2008 MEDS: acetaminophen (TYLENOL) 325 mg tablet Take 2 tablets by mouth every 6 hours as needed for fever (specify) or pain. albuterol HFA (PROAIR HFA) 90 mcg/actuation inhaler Inhale 2 Puffs every 6 hours as needed for wheezing/shortness of breath. Take as directed guaiFENesin (MUCINEX) 600 mg 12 hr tablet Take 1 tablet by mouth twice daily as needed for cold/allergy symptoms. senna-docusate (SENNA-S) 8.6-50 mg per tablet Take 1 tablet by mouth twice daily. tiotropium (SPIRIVA WITH HANDIHALER) 18 mcg inhalation capsule Inhale 1 capsule as instructed once daily. budesonide-formoterol (SYMBICORT) 80-4.5 mcg/actuation inhaler Inhale 2 Puffs as instructed twice daily. ibuprofen (MOTRIN) 600 mg tablet Take 1 tablet by mouth every 6 hours as needed for pain. levothyroxine (SYNTHROID) 100 mcg tablet daily before breakfast. pantoprazole DR (PROTONIX) 40 mg tablet Take 1 tablet by mouth once daily. Take Protonix 4 hours after taking Levothyroxine PHYSICAL EXAM: Abdomen- Soft, non-tender, non-distended and incisions satisfactory Extremities: No edema or swelling Neuro: Oriented to person, place, and time. PATHOLOGY: Gallbladder, cholecystectomy: - No significant pathologic abnormality. IMPRESSION: Post op course: Doing well I have explained to Ms. Vasquez that she may return to normal activity with no lifting, pulling, pushing over 50 pounds, no core exercises and no lifting and twisting for a total of 4 weeks. I have encouraged her to contact me at any time with any questions or concerns that may arise. Follow up: When necessary Marta Morrison MD 06/08/2023 9:37 AM [facility] 06-08-2023 History of Present illness Narrative POST OP S/p lap liliana 05/25 HPI: was in er 2 days post op dx'd with pneumonia - sx from that much improved. Preop gi sx resolved, no c/o opain VITALS: [facility] 07/23/2008 MEDS: acetaminophen (TYLENOL) 325 mg tablet Take 2 tablets by mouth every 6 hours as needed for fever (specify) or pain. albuterol HFA (PROAIR HFA) 90 mcg/actuation inhaler Inhale 2 Puffs every 6 hours as needed for wheezing/shortness of breath. Take as directed guaiFENesin (MUCINEX) 600 mg 12 hr tablet Take 1 tablet by mouth twice daily as needed for cold/allergy symptoms. senna-docusate (SENNA-S) 8.6-50 mg per tablet Take 1 tablet by mouth twice daily. tiotropium (SPIRIVA WITH HANDIHALER) 18 mcg inhalation capsule Inhale 1 capsule as instructed once daily. budesonide-formoterol (SYMBICORT) 80-4.5 mcg/actuation inhaler Inhale 2 Puffs as instructed twice daily. ibuprofen (MOTRIN) 600 mg tablet Take 1 tablet by mouth every 6 hours as needed for pain. levothyroxine (SYNTHROID) 100 mcg tablet daily before breakfast. pantoprazole DR (PROTONIX) 40 mg tablet Take 1 tablet by mouth once daily. Take Protonix 4 hours after taking Levothyroxine PHYSICAL EXAM: Abdomen- Soft, non-tender, non-distended and incisions satisfactory Extremities: No edema or swelling Neuro: Oriented to person, place, and time. PATHOLOGY: Gallbladder, cholecystectomy: - No significant pathologic abnormality. IMPRESSION: Post op course: Doing well I have explained to Ms. Vasquez that she may return to normal activity with no lifting, pulling, pushing over 50 pounds, no core exercises and no lifting and twisting for a total of 4 weeks. I have encouraged her to contact me at any time with any questions or concerns that may arise. Follow up: When necessary Marta Morrison MD 06/08/2023 9:37 AM documented in this encounter [facility] 05-31-2023 Note HNO ID: [id number] Author: Concetta (Stone Rigger)Cathie Service: Pharmacy Author Type: ? Type: Plan of Care Filed: 05/31/2023 12:46 PM Note Text: PHARMACY BEDSIDE DELIVERY SERVICE Patient Name: Katie Vasquez The marked outpatient medications were Filled at: [place] and delivered to the patient's bedside to 266 Medication List START taking these medications acetaminophen 325 mg tablet Commonly known as: TYLENOL Take 2 tablets by mouth every 6 hours as needed for fever (specify) or pain. Replaces: TYLENOL 8 HOUR ORAL albuterol HFA 90 mcg/actuation inhaler Commonly known as: PROAIR HFA Inhale 2 Puffs every 6 hours as needed for wheezing/shortness of breath. Take as directed X budesonide-formoterol 80-4.5 mcg/actuation inhaler Commonly known as: SYMBICORT Inhale 2 Puffs as instructed twice daily. X doxycycline hyclate 100 mg capsule Commonly known as: VIBRAMYCIN Take 1 capsule by mouth twice daily for 5 days. Start taking on: June 01, 2023 X guaiFENesin 600 mg 12 hr tablet Commonly known as: MUCINEX Take 1 tablet by mouth twice daily as needed for cold/allergy symptoms. predniSONE 20 mg tablet Commonly known as: DELTASONE Take 2 tablets by mouth once daily for 5 days. Start taking on: June 01, 2023 X senna-docusate 8.6-50 mg per tablet Commonly known as: SENNA-S Take 1 tablet by mouth twice daily. X tiotropium 18 mcg inhalation capsule Commonly known as: SPIRIVA WITH HANDIHALER Inhale 1 capsule as instructed once daily. X CONTINUE taking these medications ibuprofen 600 mg tablet Commonly known as: MOTRIN Take 1 tablet by mouth every 6 hours as needed for pain. levothyroxine 100 mcg tablet Commonly known as: SYNTHROID oxyCODONE IR 5 mg immediate release tablet Commonly known as: ROXICODONE Take 1 tablet by mouth every 6 hours as needed for pain for up to [address] 40 mg tablet Commonly known as: PROTONIX Take 1 tablet by mouth once daily. Take Protonix 4 hours after taking Levothyroxine You might also be taking other medications not listed above. If you have questions about any of your other medications, talk to the person who prescribed them or your Primary Care Provider. STOP taking these medications TYLENOL 8 HOUR ORAL Replaced by: acetaminophen 325 mg tablet Cathie Blanco (Stone Rigger) PAGER: [phone] May 31, 2023 12:45 PM [facility] 05-30-2023 Note HNO ID: [id number] Author: Zeny Bee MD Service: General Internal Medicine Author Type: Physician Type: Progress Notes Filed: 05/30/2023 11:50 AM Note Text: INPATIENT PROGRESS NOTE Subjective CHIEF COMPLAINT: SOB INTERVAL HPI: Down to 2L O2 Still complaining of SOB, cough, and abdominal pain. No fever or chills, no N/V/D. Current Facility-Administered Medications Medication Dose Route Frequency NaCl 0.9% iv flush bag 20 mL INTRAVENOUS PRN cefTRIAXone iv piggyback 1 g in dextrose (iso-osmotic) 50 mL (ROCEPHIN) 1 g INTRAVENOUS q 24 H azithromycin 500 mg in D5W 250 mL Vial-Bag (ZITHROMAX) 500 mg INTRAVENOUS DAILY nicotine 21 mg/24 hr 1 Patch (NICODERM) 1 Patch TRANSDERMAL DAILY And nicotine -- REMOVE patch OTHER DAILY And nicotine - verify patch OTHER q 8 H acetaminophen 650 mg tab(s) (TYLENOL) 650 mg ORAL q 6 H PRN oxyCODONE-acetaminophen 5-325 mg 1 tablet (PERCOCET) 1 tablet ORAL q 6 H PRN morphine 2 mg injection 2 mg INTRAVENOUS q [address] 40 mg tab(s) (PROTONIX) 40 mg ORAL DAILY (6 AM) levothyroxine 100 mcg tab(s) (SYNTHROID) 100 mcg ORAL DAILY (6 AM) enoxaparin 40 mg injection (LOVENOX) 40 mg SUBCUTANEOUS q 24 HR ondansetron orally disintegrating 4 mg tab(s) (ZOFRAN ODT) 4 mg ORAL q 6 H PRN Or ondansetron (PF) 4 mg injection (ZOFRAN) 4 mg INTRAVENOUS q 6 H PRN senna-docusate 8.6-50 mg 1 tablet (SENNA-S) 1 tablet ORAL BID bisacodyl 10 mg suppository (DULCOLAX) 10 mg RECTAL DAILY PRN methylPREDNISolone sod succinate(PF) 40 mg injection (SOLU-Medrol) 40 mg INTRAVENOUS q 24 H guaiFENesin 600 mg ER tab(s) (MUCINEX) 600 mg ORAL q 12 H albuterol 2.5 mg /3 mL (0.083 %) 2.5 mg (PROVENTIL) 2.5 mg INHALATION QID guaiFENesin 400 mg oral liquid (ROBITUSSIN) 400 mg ORAL q 4 H PRN Objective PHYSICAL EXAM: BP 142/69 Pulse 82 Temp (Src) 98 (Temporal) Resp 20 Wt 135 lb (61.2kg) SpO2 98% LMP 07/23/2008 O2 Therapy: Nasal Cannula, Liters: 1 Physical Exam Performed GENERAL: Alert, Mild Distress SKIN: Skin color, texture, turgor normal. No rashes or lesions. NECK: No jugulovenous distention, Supple LUNGS: Diminished in the bases. CARDIAC: Normal S1 and S2; no rubs, murmurs, or gallops ABDOMEN: Tender post recent cholecystectomy. EXTREMITIES: Extremities normal, no deformities, edema, clubbing or skin discoloration. Good capillary refill. DATA: Diagnostic tests reviewed for today's visit: Most recent labs and imaging results. Assessment/Plan Principal Problem: Pneumonia due to infectious organism (POA: Yes) Active Problems: Tobacco use disorder (POA: Yes) Hypothyroidism (POA: Yes) Hypoxia (POA: Yes) Postoperative abdominal pain (POA: Yes) Plan of care: Continue current antibiotics. Continue steroids and breathing treatments. IV Toradol for pain. Continue O2 supplement. Start IS. Stop IVF. Ambulate. Follow cultures. Monitor LABS and clinical course. Lovenox for DVT prophylaxis. Medication and Non-Pharmacologic VTE Prophylaxis/Anticoagulants Anticoagulant AND Antiplatelet Medications (From admission, onward) Start Dose Route Frequency Last Action Ordered Stop 05/27/23 2100 enoxaparin 40 mg injection (LOVENOX) (Medical Risk Categories) 40 mg SUBCUTANEOUS EVERY 24 HOURS Given, 05/29 213205/27/23 1731 -- 05/27/23 1745 activity - mobilize patient (hi,oh) VTE Prophylaxis: VTE prophylaxis appropriate SIGNATURE: Zeny Bee MD PATIENT NAME: Katie Vasquez [facility] 05-29-2023 Note HNO ID: [id number] Author: Zeny Bee MD Service: General Internal Medicine Author Type: Physician Type: Progress Notes Filed: 05/29/2023 12:26 PM Note Text: INPATIENT PROGRESS NOTE Subjective CHIEF COMPLAINT: SOB INTERVAL HPI: Still on 4L O2 Still complaining of SOB, cough, and abdominal pain. No fever or chills, no N/V/D. Current Facility-Administered Medications Medication Dose Route Frequency NaCl 0.9% iv flush bag 20 mL INTRAVENOUS PRN cefTRIAXone iv piggyback 1 g in dextrose (iso-osmotic) 50 mL (ROCEPHIN) 1 g INTRAVENOUS q 24 H azithromycin 500 mg in D5W 250 mL Vial-Bag (ZITHROMAX) 500 mg INTRAVENOUS DAILY nicotine 21 mg/24 hr 1 Patch (NICODERM) 1 Patch TRANSDERMAL DAILY And nicotine -- REMOVE patch OTHER DAILY And nicotine - verify patch OTHER q 8 H acetaminophen 650 mg tab(s) (TYLENOL) 650 mg ORAL q 6 H PRN oxyCODONE-acetaminophen 5-325 mg 1 tablet (PERCOCET) 1 tablet ORAL q 6 H PRN morphine 2 mg injection 2 mg INTRAVENOUS q [address] 40 mg tab(s) (PROTONIX) 40 mg ORAL DAILY (6 AM) levothyroxine 100 mcg tab(s) (SYNTHROID) 100 mcg ORAL DAILY (6 AM) enoxaparin 40 mg injection (LOVENOX) 40 mg SUBCUTANEOUS q 24 HR ondansetron orally disintegrating 4 mg tab(s) (ZOFRAN ODT) 4 mg ORAL q 6 H PRN Or ondansetron (PF) 4 mg injection (ZOFRAN) 4 mg INTRAVENOUS q 6 H PRN senna-docusate 8.6-50 mg 1 tablet (SENNA-S) 1 tablet ORAL BID bisacodyl 10 mg suppository (DULCOLAX) 10 mg RECTAL DAILY PRN methylPREDNISolone sod succinate(PF) 40 mg injection (SOLU-Medrol) 40 mg INTRAVENOUS q 24 H guaiFENesin 600 mg ER tab(s) (MUCINEX) 600 mg ORAL q 12 H albuterol 2.5 mg /3 mL (0.083 %) 2.5 mg (PROVENTIL) 2.5 mg INHALATION QID Objective PHYSICAL EXAM: BP 162/77 Pulse 78 Temp (Src) 98.4 (Temporal) Resp 20 Wt 135 lb (61.2kg) SpO2 92% LMP 07/23/2008 O2 Therapy: Nasal Cannula, Liters: 4 Physical Exam Performed GENERAL: Alert, Mild Distress SKIN: Skin color, texture, turgor normal. No rashes or lesions. NECK: No jugulovenous distention, Supple LUNGS: Diminished in the bases. CARDIAC: Normal S1 and S2; no rubs, murmurs, or gallops ABDOMEN: Tender post recent cholecystectomy. EXTREMITIES: Extremities normal, no deformities, edema, clubbing or skin discoloration. Good capillary refill. DATA: Diagnostic tests reviewed for today's visit: Most recent labs and imaging results. Assessment/Plan Principal Problem: Pneumonia due to infectious organism (POA: Yes) Active Problems: Tobacco use disorder (POA: Yes) Hypothyroidism (POA: Yes) Hypoxia (POA: Yes) Postoperative abdominal pain (POA: Yes) Plan of care: Continue current antibiotics. Continue steroids and breathing treatments. IV Toradol for pain. Continue O2 supplement. Start IS. Stop IVF. Ambulate. Follow cultures. Monitor LABS and clinical course. Lovenox for DVT prophylaxis. Medication and Non-Pharmacologic VTE Prophylaxis/Anticoagulants Anticoagulant AND Antiplatelet Medications (From admission, onward) Start Dose Route Frequency Last Action Ordered Stop 05/27/23 2100 enoxaparin 40 mg injection (LOVENOX) (Medical Risk Categories) 40 mg SUBCUTANEOUS EVERY 24 HOURS Given, 05/28 214905/27/23 1731 -- 05/27/23 1745 activity - mobilize patient (hi,co) VTE Prophylaxis: VTE prophylaxis appropriate SIGNATURE: Zeny Bee MD PATIENT NAME: Katie Vasquez [facility] 05-28-2023 Note HNO ID: [id number] Author: Jesus Ram MD Service: General Internal Medicine Author Type: Physician Type: Progress Notes Filed: 05/28/2023 11:25 AM Note Text: INPATIENT PROGRESS NOTE Subjective CHIEF COMPLAINT: SOB INTERVAL HPI: Still complaining of SOB, cough, and abdominal pain. No fever or chills, no N/V/D. Current Facility-Administered Medications Medication Dose Route Frequency NaCl 0.9% iv flush bag 20 mL INTRAVENOUS PRN cefTRIAXone iv piggyback 1 g in dextrose (iso-osmotic) 50 mL (ROCEPHIN) 1 g INTRAVENOUS q 24 H azithromycin 500 mg in D5W 250 mL Vial-Bag (ZITHROMAX) 500 mg INTRAVENOUS DAILY nicotine 21 mg/24 hr 1 Patch (NICODERM) 1 Patch TRANSDERMAL DAILY And nicotine -- REMOVE patch OTHER DAILY And nicotine - verify patch OTHER q 8 H albuterol 2.5 mg /3 mL (0.083 %) 2.5 mg (PROVENTIL) 2.5 mg INHALATION q 6 H PRN acetaminophen 650 mg tab(s) (TYLENOL) 650 mg ORAL q 6 H PRN oxyCODONE-acetaminophen 5-325 mg 1 tablet (PERCOCET) 1 tablet ORAL q 6 H PRN morphine 2 mg injection 2 mg INTRAVENOUS q [address] 40 mg tab(s) (PROTONIX) 40 mg ORAL DAILY (6 AM) levothyroxine 100 mcg tab(s) (SYNTHROID) 100 mcg ORAL DAILY (6 AM) enoxaparin 40 mg injection (LOVENOX) 40 mg SUBCUTANEOUS q 24 HR ondansetron orally disintegrating 4 mg tab(s) (ZOFRAN ODT) 4 mg ORAL q 6 H PRN Or ondansetron (PF) 4 mg injection (ZOFRAN) 4 mg INTRAVENOUS q 6 H PRN senna-docusate 8.6-50 mg 1 tablet (SENNA-S) 1 tablet ORAL BID bisacodyl 10 mg suppository (DULCOLAX) 10 mg RECTAL DAILY PRN methylPREDNISolone sod succinate(PF) 40 mg injection (SOLU-Medrol) 40 mg INTRAVENOUS q 24 H guaiFENesin 600 mg ER tab(s) (MUCINEX) 600 mg ORAL q 12 H PRN Objective PHYSICAL EXAM: BP 150/85 Pulse 89 Temp (Src) 97 (Temporal) Resp 22 Wt 135 lb (61.2kg) SpO2 97% LMP 07/23/2008 O2 Therapy: Nasal Cannula, Liters: 6 Physical Exam Performed GENERAL: Alert, Mild Distress SKIN: Skin color, texture, turgor normal. No rashes or lesions. NECK: No jugulovenous distention, Supple LUNGS: Diminished in the bases. CARDIAC: Normal S1 and S2; no rubs, murmurs, or gallops ABDOMEN: Tender post recent cholecystectomy. EXTREMITIES: Extremities normal, no deformities, edema, clubbing or skin discoloration. Good capillary refill. DATA: Diagnostic tests reviewed for today's visit: Most recent labs and imaging results. Assessment/Plan Principal Problem: Pneumonia due to infectious organism (POA: Yes) Active Problems: Tobacco use disorder (POA: Yes) Hypothyroidism (POA: Yes) Hypoxia (POA: Yes) Postoperative abdominal pain (POA: Yes) Plan of care: Continue current antibiotics. Continue steroids and breathing treatments. IV Toradol for pain. Continue O2 supplement. Start IS. Stop IVF. Ambulate. Follow cultures. Monitor LABS and clinical course. Lovenox for DVT prophylaxis. Medication and Non-Pharmacologic VTE Prophylaxis/Anticoagulants Anticoagulant AND Antiplatelet Medications (From admission, onward) Start Dose Route Frequency Last Action Ordered Stop 05/27/23 2100 enoxaparin 40 mg injection (LOVENOX) (Medical Risk Categories) 40 mg SUBCUTANEOUS EVERY 24 HOURS Given, 05/27 203405/27/23 1731 -- 05/27/23 1745 activity - mobilize patient (hi,co) VTE Prophylaxis: VTE prophylaxis appropriate SIGNATURE: Jesus Ram MD PATIENT NAME: Katie Vasquez [facility] 05-28-2023 Note HNO ID: [id number] Author: Madalyn Smart RN Service: Care Management Author Type: Registered Nurse Type: Care Mgt Initial Assessment Filed: 05/28/2023 10:23 AM Note Text: CARE MANAGEMENT: ASSESSMENT AND DISCHARGE PLAN SERVICE DATE: May 28, 2023 SERVICE TIME: 10:21 AM PCP: Luciano Gloria MD Primary Contact: Extended Emergency Contact Information Primary Emergency Contact: Rodolfo Vasquez Address: [id number] [place] [id number] [address] Relation: Spouse Admission Status: Inpatient Insurance Provider: [employer] PPO Discharge Planning requested by: Per Department Practice Potential Transition Plans Home;Respiratory;To Be Determined Advance Directives Current Advance Directive: None Transportation Broker Attempted to Assist with AD Completion: Yes Action: Education Provided Current Living Arrangements and Support Lives with: Spouse/significant other Type of Residence: Private Residence (House) Does the patient have to climb stairs at home?: Yes;stairs outside the home Support: How do you manage to accomplish the following: Independent: Ambulation;Bathe/Shower;Dress;Me als/Meal Prep;Going to the bathroom;Medication Management;Transportation to appointments/community Current Services/Equipment Discharge Planning Patient Goal(s): Be able to go home [place] [facility] Explained: Are you interested in bedside delivery of your medications? No, uses [facility], [place], [place] Discharge Planning Participant(s): Patient Patient/Family Comments: Caregiver Assessment: Transport at Discharge: Transportation Arrangements: Car Needs Prior to Discharge: Needs Prior to Discharge: To Be Determined;Discharge Prescriptions;Discharge Transportation;Desat Study;Equipment Delivery Post-Acute Discharge Plan: 58 yr Female admit SOB, S/P Lap Choley 2 days ago. Pt. is Independent, Lives with with no outside serviices in the home. Currently Pt. using 6 L O2. CM following for D/C Needs. SIGNATURE: Madalyn Smart RN,BSN, ACM PATIENT NAME: Katie Vasquez DATE: May 28, 2023 TIME: 10:21 AM CONTACT #: [phone] [facility] documented as of this encounter (statuses as of 06/09/2023) [facility]09-19-2023 NoteHNO ID: [id number] Author: Abiodun Sanz RN Service: ? Author Type: Registered Nurse Type: Nursing Progress Note Filed: 05/25/2023 1:14 PM Note Text: Anesthesia at bedside for assessment. Pain currently not under control.[id number] NoteHNO ID: [id number] Author: Starla Aguilar APRN.CELL GENETICIST Service: Anesthesiology Author Type: Nurse Fashion Marketer Type: Anesthesia Procedure Notes Filed: 05/25/2023 11:50 AM Note Text: ANESTHESIOLOGY PROCEDURE NOTE Airway General Information Procedure Start Time/Medication Administration: 05/25/2023 11:41 AM Patient location during procedure: OR Staffing Anesthesiologist: Andres Vega DO CELL GENETICIST: Starla Aguilar APRN.CELL GENETICIST Performed by: CELL GENETICIST Indications and Patient Condition Indications for airway management: anesthesia Preoxygenated: yes anesthesia circuit Patient position: sniffing Method: asleep Cricoid Pressure: No Manual In-Line Stabilization: No Difficult Mask: No Airway Accessory: oral airway Final Airway Details Final airway type: endotracheal airway Final Endotracheal Airway: ETT Cuffed: yes Successful intubation technique: direct laryngoscopy Endotracheal tube insertion site: oral Blade: Baumann Blade size: #2 ETT size (mm): 7.0 Measured from: lips Measurement (cm): 21 Placement verified by: capnometry Cormack-Lehane Classification: grade I - full view of glottis Number of attempts at approach: 1 Failed airway: no Unrecognized esophageal intubation: no Airway not difficult SIGNATURE: Starla Aguilar APRN.CRNA PATIENT NAME: Katie Vasquez DATE: May 25, 2023 TIME: 11:49 AM CSN: [id number] Nurse Note* Abiodun Sanz RN - 05/25/2023 1:14 PM EDT Anesthesia at bedside for assessment. Pain currently not under control. [facility] Surgical operation note* Brief Op Note - Marta Morrison MD - 05/25/2023 12:34 PM EDT BRIEF OPERATIVE / PROCEDURE NOTE LOG ID: [id number] SURGERY/PROCEDURE DATE: 05/25/2023 INCISION/PROCEDURE START TIME: 11:59 AM INCISION CLOSE/PROCEDURE END TIME: SURGEON(S)/PROCEDURALIST(S) AND FIELD MAP EDITOR(S): Surgeon(s) and Role: * Marta Morrison MD - Primary Physician Candy Polisher: Sadaf Urrutia PA-C SURGERY/PROCEDURE(S): Laparoscopic cholecystectomy with intraoperative cholangiograms ANESTHESIA: General FINDINGS: nl ioc ESTIMATED BLOOD LOSS: minimal SPECIMENS: 1 COMPLICATIONS: None CLOSURE TECHNIQUE: Primary PRE-OP/PRE-PROCEDURE DIAGNOSIS: biliary dyskinesia POST-OP/POST-PROCEDURE DIAGNOSIS: Same as Preop The production assistant YEIMY/AYAZ was used as no other production assistant such as resident, fellow, RN or other physicianavailable. Assistants role in surgery was assisting in exposure, and closure Dictated # [id number] SIGNATURE: Marta Morrison MD PATIENT NAME: Katie Vasquez DATE: May 25, 2023 TIME: 12:34 PM * Operative Report - Marta Morrison MD - 05/25/2023 12:00 AM EDT [facility] - Operative Report KATIE VASQUEZ : 1965 AGE: 58. SEX: F PATIENT TYPE: A HOSP SVC: [facility] LOCATION: [facility] ATTENDING PHYSICIAN: Marta Morrison M.D. CSN NUMBER: [id number] DATE OF SURGERY/PROCEDURE: 05/25/2023 INCISION/PROCEDURE START TIME: 11:59 a.m. INCISION CLOSE/PROCEDURE END TIME: 12:35 PM PREOPERATIVE DIAGNOSIS: Biliary dyskinesia. POSTOPERATIVE DIAGNOSIS: Biliary dyskinesia. During cholangiogram 3 runs were performed for 18 seconds with a total of 8.26 mGy. The assistance PA was used as no other production assistant such as resident fellow, RN, or other physician was available. Candy Polisher's role in surgery was assisting in exposure and closure. SURGEON: Marta Morrison M.D. FIELD MAP EDITOR: YEIMY Galeas. SURGERY/PROCEDURE: Laparoscopic cholecystectomy with intraoperative cholangiograms under fluoroscopy. ANESTHESIA: General. FINDINGS: Normal cholangiograms. ESTIMATED BLOOD LOSS: Minimal. SPECIMEN: 1. COMPLICATIONS: None. CLOSURE TECHNIQUE: Primary. INDICATIONS: 58-year-old female with biliary dyskinesia. Risks and benefits of proceeding with laparoscopic cholecystectomy were discussed. The patient expressed understanding and wished to proceed. DESCRIPTION OF PROCEDURE: Patient was taken to the operating room, placed in supine position. Aftersatisfactory induction of general anesthesia, patient's abdomen was prepped and draped in a sterilefashion. A 5 mm supraumbilical incision was then made. Abdomen entered under direct vision using the Optiview trocar, insufflated to 15 mmHg and then placed 11 mm epigastric midline trocar, followed by 2 subcostal right upper quadrant 5 mm trocars. Using 2-hand technique, blunt dissection of the cystic duct infundibular junction was performed. This area was clipped, incised, and cholangiograms were obtained showing free flow to the duodenum, patent left and right hepatic ducts, no filling defects, though the entire biliary tree seemed to be prominent. I removed the cholangiocath, clipped the cystic duct x3 and transected. I identified the cystic artery as well as small posterior branches, which were clipped x2, and transected. Bovie cautery was used to take the gallbladder from the liver bed and placed in an Endopouch, removed through the epigastric port. Light irrigation of the liver bed confirmed good hemostasis. No evidence of bile leak. No other gross intraabdominal abnormalities noted. Therefore removed the epigastric trocar. 0 Maxon [id number] suture used to reapproximatethe fascia with good airtight closure under direct vision using the ship harbor pilot guide. Remaining trocars were removed. CO2 expelled out of the abdomen. 5-0 Vicryl subcuticular stitch used to reapproximate the skin. Skin glue applied. Patient was awakened from anesthesia without difficulty and taken to PACU in stable condition. Marta Morrison M.D. SMG:[id number] /[id number] documented [facility] History and physical note * Marta Morrison MD - 05/25/2023 11:24 AM EDT UPDATED HISTORY AND PHYSICAL EXAMINATION SERVICE DATE: 05/25/2023 SERVICE TIME: 11:25 AM PHYSICAL EXAM MUST BE COMPLETED ON ADMISSION The History and Physical (completed in the past 30 days) has been reviewed and the patient has beenexamined. The contents accurately reflect the patient's condition with the following additions or revisions since the H&P was completed. Examination indicates no changes. This H&P can be found in the attached . SIGNATURE: Marta Morrison MD PATIENT NAME: Katie Vasquez DATE: May 25, 2023 TIME: 11:24 AM Source Note - Deborah Sahu PA-C - 05/05/2023 10:43 AM EDT HISTORY AND PHYSICAL EXAMINATION SERVICE DATE: 05/05/2023 SERVICE TIME: 12:13 PM PRIMARY CARE PHYSICIAN: Luciano Gloria MD This is a virtual visit using Virtual Visit (Audio/Visual) I have discussed the nature of this visit with the patient which will occur via Distance Health (Phone, Virtual Visit) and she agrees to proceed with this interaction . It required patient-provider interaction for the medical decision making as documented below. I have communicated my name and active licensure. The patient's identity and physical location wereverified at the time of this visit. Either the patient or their legal patient access representative has been informed of the risks and benefits of and alternatives to treatment through a remote evaluation and consents to proceed with the evaluation remotely. This is a virtual visit using [employer] video visit. It required patient-provider interaction for themedical decision making as documented below. REASON FOR VISIT: Katie Vasquez is a 58 year old female who is scheduled for Procedure(s) with comments: LAPAROSCOPIC CHOLECYSTECTOMY WITH GRAMS (N/A) - Lap liliana with grams at the request of Dr. Marta Morrison for consultation. My final recommendation will be communicated back to the requesting physician by way of shared medical record or letter. Subjective The patient has the following: ACTIVE PROBLEM LIST Abdominal Pain, Right Upper Quadrant Tobacco Use Disorder Hematuria, Unspecified Umbilical Hernia Without Mention of Obstruction Or Gangrene Hydronephrosis of Left Kidney Hypothyroidism Epigastric Abdominal Pain Biliary Dyskinesia Multiple Gastric Ulcers COVID-19 Immunization Status Overdue - Covid-19 Vaccine (4 - Moderna series) Overdue since 10/20/2021 08/25/2021 Imm Admin: COVID-19 original vaccine, full dose, monovalent (MODERNA) 12/19/2020 Imm Admin: COVID-19 original vaccine, full dose, monovalent (MODERNA) 11/21/2020 Imm Admin: COVID-19 original vaccine, full dose, monovalent (MODERNA) Patient reports being fully vaccinated against COVID-19. CHIEF COMPLAINT: Biliary Dyskinesia HPI: Patient is a 58 year old female presenting with biliary dyskinesia. She states approximately amonth or two ago she had significant pain and on follow up HIDA scan a sluggish gallbladder was noted and removal was recommended. She was told she needed to wait as she just had surgery on 04/06/2023 for cervical fusion. Patient rates pain at 0/10 currently and at its worst pain is rated at 9/10 and is described as it makes me double over . Pain is worse with eating particular foods and after eating. She states her pain is usually a 3/10 after eating and is described as an annoyance more than pain. Patient denies any other specific radiating, alleviating or aggravating factors. COVID VACCINATION STATUS: Fully vaccinated REVIEW OF SYSTEMS: General: No weight loss, malaise or fevers. Neurological: No history of TIA's, stroke, THREAD GRINDER tumor, impaired sensorium, hemiplegia, paraplegia orquadraplegia. No neurological symptoms or problems. Respiratory: Positive for: tobacco use. Negative for: asthma, COPD, current cough, dyspnea, orthopnea, pneumonia within 6 weeks and URI < 2 weeks. Cardiovascular: No history of HTN requiring medication, no history of angina, CHF, MD, cardiac surgery or stents. Denies rest pain, gangrene or revascularization/amputation for PVD. No history of cardiovascular symptoms or problems. GI: See HPI. Gastric ulcers : No history of dysuria, frequency or incontinence, stones or chronic kidney disease. No difficulty urinating, nocturia > 1 time per night or hematuria. HANGAR ATTENDANT: Negative for abnormal vaginal bleeding, abnormal vaginal discharge. Endocrine: Positive for: hypothyroidism. Negative for: diabetes mellitus and steroid for chronic problem. Hematology: No history of bleeding or clotting disorder. Patient is not taking anti-coagulation or platelet medications. No history of hematological symptoms or problems. Oncology: No history of CA metastasis, chemo within 30 days, or radiotherapy within 90 days. No history of oncological symptoms or problems. Psych: No history of psychiatric symptoms or problems. Musculoskeletal: Recent cervical spine fusion Positive for: back pain. Skin: Negative for lesions, rash and itching. PAST MEDICAL HISTORY Diagnosis Date Anxiety Hypothyroidism S/P 4 S/P ear surgery Spinal stenosis PAST SURGICAL HISTORY Procedure Laterality Date DELIVERY ONLY x4 EGD W/O BRSH SPEC VARICIES INJ PAST SURGICAL HISTORY OF 12/04/2015 Left Robotic Pyeloplasty PAST SURGICAL HISTORY OF Right ear; graft; hole in eardrum PAST SURGICAL HISTORY OF Left 2021 tubes placed in ear SPINE SURGERY HX cervical spine - C5-7 in ~ 2015 and on 04/06/2023 C3-5 fusions FAMILY HISTORY Problem Relation Age of Onset Anesthesia Problems No Family History Blood Clots No Family History Clotting Disorder No Family History Social History Tobacco Use Smoking status: Every Day Packs/day: 1.00 Years: 27.00 Additional pack years: 0.00 Total pack years: 27.00 Types: Cigarettes Smokeless tobacco: Never Vaping Use Vaping Use: Never used Substance Use Topics Alcohol use: Not Currently Drug use: Never Prior to Admission medications as of 05/05/23 1111 Medication Sig Last Dose Taking levothyroxine (SYNTHROID) 100 mcg tablet daily before breakfast. Taking Yes acetaminophen (TYLENOL 8 HOUR ORAL) Take by mouth. Taking Yes pantoprazole DR (PROTONIX) 40 mg tablet Take 1 tablet by mouth once daily. Take Protonix 4 hours after taking Levothyroxine Taking Yes No medication comments found. ALLERGIES No Known Allergies Objective PHYSICAL EXAM: (if completed, exam performed via video enabled technology) General: alert and oriented and healthy appearance. Pertinent negatives noted - not distressed. Skin: normal color, no rash or lesions. HEENT: Head is normocephalic, no abnormality or lesion noted Eyes show no injection and visual acuity is grossly normal Ears note grossly normal hearing Nose exam notes external nose is normal without rhinorrhea Oropharynx exam notes moist mucous membranes with no noted tonsillar hypertrophy, erythema or edema Uvula is midline. . Cardiovascular: Patient palpated radial pulse, regular when counted aloud by patient. Capillary refill is less than 3 seconds in bilateral upper extremities. . Respiratory: Equal chest rise with normal respiratory effort . Abdomen: soft. Pertinent negatives noted - not distended and not tender. No pain upon palpation by patient . Extremities: no deformity, no edema or tenderness, no joint swelling or clubbing. Neurological: normal cognition and motor skills. Gait stated to be normal per patient . PAIN ASSESSMENT: VITALS: BP 120/82[per pt[ Pulse 82 Temp [does not have a thermometer available - feeling well[ Resp 17 Ht 5' 3 (1.60m) Wt 135 lb (61.2kg) LMP 07/23/2008 BMI 23.92 kg/(m^2). Diagnostic tests reviewed for today's visit: Lab Value Units Date High Low HB 16.0 g/dL 05/12/2023 15.5 11.5 HCT 48.9 % 05/12/2023 46.0 36.0 WBC 7.28 k/uL 05/12/2023 11.00 3.70 PLT 199 k/uL 05/12/2023 400 150 NA 142 mmol/L 05/12/2023 144 136 K 4.1 mmol/L 05/12/2023 5.1 3.7 GLUC 121 mg/dL 05/12/2023 99 74 BUN 10 mg/dL 05/12/2023 21 7 CREAT 0.71 mg/dL 05/12/2023 0.96 0.58 PTSEC No results within date range. INR No results within date range. APTT No results within date range. ALT 19 U/L 05/12/2023 38 7 AST 24 U/L 05/12/2023 35 13 TBILI 0.3 mg/dL 05/12/2023 1.3 0.2 TSH 15.710 mIU/L 03/05/2023 4.200 0.270 Lab Value Units Date High Low HCGQT No results within date range. UHCG No results within date range. HCG, BODY* No results within date range. Lab Value Units Date High Low ABORHD No results within date range. ABSCREEN No results within date range. No results found for: HBA1C Recent Results (from the past 8760 hour(s)) ECG COMPLETE Collection Time: 03/05/23 12:05 AM Result Value Ventricular Rate 93 Atrial Rate 93 P-R Interval 198 QRS Duration 66 QT Interval 352 QTC Calculation (Bazett) 437 Calculated P Ernul 81 Calculated R Ernul 65 Calculated T Ernul 73 Impression NORMAL SINUS RHYTHM ANTEROSEPTAL INFARCT , AGE UNDETERMINED ABNORMAL ECG NO PREVIOUS ECGS AVAILABLE Confirmed by MD ANKIT, SAMANTHA ([id number]) on 03/09/2023 10:02:57 PM No results found for this or any previous visit (from the past 76705 hour(s)). Assessment Patient has the following medical conditions which may affect oracio-operative course: Tobacco use disorder Assessment: current use of 1 ppd Multiple gastric ulcers Assessment: Per EGD from 03/06/2023: Upper endoscopy showed - Normal duodenal bulb, first portion of the duodenum and second portion ofthe duodenum. Biopsied. Non-bleeding gastric ulcers with no stigmata of bleeding. Biopsied. Z-line irregular, 40 cm from the incisors. Biopsied. 1 cm hiatal hernia. Is tolerating pantoprazole well Following with Dr. Dowell with GI Biliary dyskinesia Assessment: planned upcoming procedure for Hypothyroidism Assessment: States is well controlled with levothyroxine and denies any recent dosage adjustments Follows with PCP Smith Activity Status Index: METS: Do heavy work around the house, such as scrubbing floors, lifting or moving heavy furniture (8.00 METs) DASI Score: 8 (Limited due to recent cervical spine surgery ) Patient denies any chest pain or undue shortness of breath with the above physical activity. Clinical Frailty Scale: 3. Well, with treated comorbid disease STOP-Bang Score: Snores loudly Patient over 50 years old Denies feeling tired, fatigued, or sleepy during the daytime Has not been observed to stop breathing or choking/gasping during sleep Denies having high blood pressure BMI less than or equal to 35 kg/m^2 Does not have a large neck Non-male patient STOP-Bang Score: 2 [id number] Score: [id number] Score: 0 ANESTHESIA FINDINGS: Intubation History: No history of difficult intubation. No abnormal airway history Significant Anesthesia Considerations: none Airway History: No prior airway or anesthetic complication noted upon chart review. No history of difficult airway No abnormal airway history I - PHYSICAL EVALUATION AIRWAY Patient intubated: No. Tracheostomy tube not present Mallampati: II. TM distance: >3 FB. Neck ROM: limited flexion and extension. Mouth opening: adequate. Short neck: no. Additional comments: Limited neck ROM in all directions . Thick neck: no Mcdonald present: no Lip Bite Test: I Microretrognathia/Micronagthia/Recessed Chin: No DENTAL Dental findings: teeth intact. Additional comments: Denies any chipped or broken teeth. Denies any dental pain or infections. . II - ANESTHESIA PLAN Anesthetic Plan: other Anesthetic plan additional comments: *PACC/TCI - anesthesia choice. Beta Dominique Monitoring Plan Post Procedure Analgesic Plan Prepared for Surgery: optimally prepared for surgery, pending [see comment]. I will send a letter to her spine surgeon to ensure she may proceed given recent cervical spine fusion on 04/06/2023. Pending letter response for optimization. LABS ADDENDUM: May 12, 2023 : 12:51 PM Labs reviewed. ADDENDUM: May 24, 2023 : 10:39 AM Letter response received with spine surgeon approving patient to proceed with the planned procedure. CONSULTS: Planned Anesthetic: other anesthesia choice The Following Tests/Procedures Have Been Initiated: Orders Placed This Encounter CBC with Differential Standing Status: Future Number of Occurrences: 1 Standing Expiration Date: 07/05/2023 CMP Standing Status: Future Number of Occurrences: 1 Standing Expiration Date: 07/05/2023 Instructions Given to Patient: Instructions located in the after visit summary. Patient given verbal and written preop instructions and voices comprehension and compliance. SIGNATURE: Deborah Sahu PA-C PATIENT NAME: Katie Vasquez DATE: May 05, 2023 TIME: 10:43 AM PAGER/CONTACT #: documented in this encounterKind[facility]23 Miscellaneous Notes* Telephone Encounter - Pati Mackenzie OCCA - 05/24/2023 11:13 AM EDT Received from [employer], scanned into patient chart for review. YURIDIA Vazquez May 24, 2023 11:16 AM * Telephone Encounter - Deborah Sahu PA-C - 05/24/2023 10:39 AM EDT Hello, Fax should be coming in for this patient today. Surgery is tomorrow so please have it scanned in assoon as possible. Thank you, Deborah Sahu PA-C PACC * Telephone Encounter - Nicki Umana RN - 05/19/2023 10:18 AM EDT Patient call. States that DR Hale office did not receive letter from Deborah Sahu PA-C. Letter faxed to DR Crow at [phone] per patients request. Confirmation received. * Telephone Encounter - Chelsey Aguillon MA - 05/17/2023 2:55 PM EDT Printed and faxed Chelsey Aguillon MA * Telephone Encounter - Deborah Sahu PA-C - 05/05/2023 1:14 PM EDT Karina, Could you please print and fax the letter in this patient's chart and send to Dr. Crow (Attn: Kaylee) to fax #: [phone]. Please let me know if they respond to you instead of the [place] office listed on the fax. I will try to update the letter to respond to [facility] office. Thank you! Deborah documented in this encounterKind[facility]08-30-2023 Instructions* Patient Instructions* Deborah Sahu PA-C - 05/05/2023 11:10 AM EDT PATIENT PREOPERATIVE INSTRUCTIONS Marta Morrison MD has scheduled you for your procedure at this surgery center: [facility]: [phone] -- [address] [address]. Arrival Time for Surgery: - The Surgery Center or hospital where you are having surgery will call the afternoon before surgery (or Wednesday for Wednesday surgery) with a scheduled arrival time. - If you have not heard by 4 pm, please contact the surgery center above. Please read below carefully for your personalized instructions. Dietary Restrictions: - No solid food after midnight. - You may have 12 ounces of clear liquids (water, clear juices such as apple juice or gatorade, carbonated beverages, clear tea, black coffee, jello) until 2 hours before scheduled arrival at facility. Medications: Unless instructed differently below, stay on all of your medications until your surgery. If you start any new medications after today's visit, please contact your surgeon. Pre-Surgery Med Instructions Medication Instructions levothyroxine (SYNTHROID) 100 mcg tablet Take the day of surgery with a small sip of water acetaminophen (TYLENOL 8 HOUR ORAL) Take the day of surgery with a small sip of water pantoprazole DR (PROTONIX) 40 mg tablet Take the day of surgery with a small sip of water If you start any new medications after today's visit, please contact the surgeon's office. Blood Thinning Medications: - Stop NSAIDS (Ibuprofen, Advil, Aleve, Motrin, Celebrex, Mobic, etc.) 7 days before surgery, as directed by your surgeon. - Stop Aspirin 7 days before surgery, as directed by your surgeon. - Stop Vitamin E, ALL multi-vitamins, herbals and dietary supplements 14 days before surgery. - You may take Tylenol (Acetaminophen) or any of your pain medications that do not contain aspirin or NSAIDS as needed. Important Reminders: - If you use CPAP/BIPAP, bring the machine with you to the surgery center. - Candy, mints, and tobacco products are NOT permitted the morning of surgery. - Hearing aids, dentures and glasses may be worn the morning of surgery. - NO jewelry, body piercings, makeup, hairpins or contacts are to be worn the day of surgery. If you develop symptoms such as a fever, cold, or flu, or have other changes to your health within TWO DAYS of scheduled surgery or the morning of surgery, please contact the surgery center above. Personal Belongings: -Please have photo ID and insurance cards. -If you do not have a copy of advance directives on file with us, please bring a copy with you on the day of surgery. - Leave ALL valuables and money at home or with family members. For Outpatient Procedures: - YOU MUST HAVE A RESPONSIBLE DISH UP PERSON TAKE YOU HOME. A DRAWING IN HAND OR MANUFACTURING ANALYST CANNOT BE MADE A RESPONSIBLE DISH UP PERSON. - We recommend that a responsible person stays with you overnight to take care of you. - You cannot stay in a hotel alone after outpatient surgery. You will not be permitted to have yoursurgery, if you do not have someone to take care of you. Please be aware that emergency situations arise, which may delay or change your surgical time. If this happens, we will notify you as soon as possible and regret any inconvenience. If you already have an Advance Directive, please fax a copy to [phone] or email to for it to be added to your chart. If you do not have an Advance Directive, you can find the appropriate form and more information at [email or web address]. We recommend that youcomplete the Advance Directive form found on the website and bring it with you the day of your surgery. It can be witnessed and scanned into your chart that day. Deborah Sahu PA-C documented in this encounterKindred [facility]08-30-2023 History and physical note * Deborah Sahu PA-C - 05/05/2023 10:43 AM EDT HISTORY AND PHYSICAL EXAMINATION SERVICE DATE: 05/05/2023 SERVICE TIME: 11:31 AM PRIMARY CARE PHYSICIAN: Luciano Gloria MD This is a virtual visit using Virtual Visit (Audio/Visual) I have discussed the nature of this visit with the patient which will occur via Distance Health (Phone, Virtual Visit) and she agrees to proceed with this interaction . It required patient-provider interaction for the medical decision making as documented below. I have communicated my name and active licensure. The patient's identity and physical location wereverified at the time of this visit. Either the patient or their legal patient access representative has been informed of the risks and benefits of and alternatives to treatment through a remote evaluation and consents to proceed with the evaluation remotely. This is a virtual visit using [employer] video visit. It required patient-provider interaction for themedical decision making as documented below. REASON FOR VISIT: Katie Vasquez is a 58 year old female who is scheduled for Procedure(s) with comments: LAPAROSCOPIC CHOLECYSTECTOMY WITH GRAMS (N/A) - Lap liliana with grams at the request of Dr. Marta Morrison for consultation. My final recommendation will be communicated back to the requesting physician by way of shared medical record or letter. Subjective The patient has the following: ACTIVE PROBLEM LIST Abdominal Pain, Right Upper Quadrant Tobacco Use Disorder Hematuria, Unspecified Umbilical Hernia Without Mention of Obstruction Or Gangrene Hydronephrosis of Left Kidney Hypothyroidism Epigastric Abdominal Pain Biliary Dyskinesia Multiple Gastric Ulcers COVID-19 Immunization Status Overdue - COVID-19 VACCINE (4 - Moderna series) Overdue since 10/20/2021 08/25/2021 Imm Admin: COVID-19 original vaccine, full dose, monovalent (MODERNA) 12/19/2020 Imm Admin: COVID-19 original vaccine, full dose, monovalent (MODERNA) 11/21/2020 Imm Admin: COVID-19 original vaccine, full dose, monovalent (MODERNA) Patient reports being fully vaccinated against COVID-19. CHIEF COMPLAINT: Biliary Dyskinesia HPI: Patient is a 58 year old female presenting with biliary dyskinesia. She states approximately amonth or two ago she had significant pain and on follow up HIDA scan a sluggish gallbladder was noted and removal was recommended. She was told she needed to wait as she just had surgery on 04/06/2023 for cervical fusion. Patient rates pain at 0/10 currently and at its worst pain is rated at 9/10 and is described as it makes me double over . Pain is worse with eating particular foods and after eating. She states her pain is usually a 3/10 after eating and is described as an annoyance more than pain. Patient denies any other specific radiating, alleviating or aggravating factors. COVID VACCINATION STATUS: Fully vaccinated REVIEW OF SYSTEMS: General: No weight loss, malaise or fevers. Neurological: No history of TIA's, stroke, THREAD GRINDER tumor, impaired sensorium, hemiplegia, paraplegia orquadraplegia. No neurological symptoms or problems. Respiratory: Positive for: tobacco use. Negative for: asthma, COPD, current cough, dyspnea, orthopnea, pneumonia within 6 weeks and URI < 2 weeks. Cardiovascular: No history of HTN requiring medication, no history of angina, CHF, MD, cardiac surgery or stents. Denies rest pain, gangrene or revascularization/amputation for PVD. No history of cardiovascular symptoms or problems. GI: See HPI. Gastric ulcers : No history of dysuria, frequency or incontinence, stones or chronic kidney disease. No difficulty urinating, nocturia > 1 time per night or hematuria. HANGAR ATTENDANT: Negative for abnormal vaginal bleeding, abnormal vaginal discharge. Endocrine: Positive for: hypothyroidism. Negative for: diabetes mellitus and steroid for chronic problem. Hematology: No history of bleeding or clotting disorder. Patient is not taking anti-coagulation or platelet medications. No history of hematological symptoms or problems. Oncology: No history of CA metastasis, chemo within 30 days, or radiotherapy within 90 days. No history of oncological symptoms or problems. Psych: No history of psychiatric symptoms or problems. Musculoskeletal: Recent cervical spine fusion Positive for: back pain. Skin: Negative for lesions, rash and itching. PAST MEDICAL HISTORY Diagnosis Date Anxiety Hypothyroidism S/P 4 S/P ear surgery Spinal stenosis PAST SURGICAL HISTORY Procedure Laterality Date DELIVERY ONLY x4 EGD W/O BRSH SPEC VARICIES INJ PAST SURGICAL HISTORY OF 12/04/2015 Left Robotic Pyeloplasty PAST SURGICAL HISTORY OF Right ear; graft; hole in eardrum PAST SURGICAL HISTORY OF Left 2021 tubes placed in ear SPINE SURGERY HX cervical spine - C5-7 in ~ 2015 and on 04/06/2023 C3-5 fusions FAMILY HISTORY Problem Relation Age of Onset Anesthesia Problems No Family History Blood Clots No Family History Clotting Disorder No Family History Social History Tobacco Use Smoking status: Every Day Packs/day: 1.00 Years: 27.00 Additional pack years: 0.00 Total pack years: 27.00 Types: Cigarettes Smokeless tobacco: Never Vaping Use Vaping Use: Never used Substance Use Topics Alcohol use: Not Currently Drug use: Never Prior to Admission medications as of 05/05/23 1111 Medication Sig Last Dose Taking levothyroxine (SYNTHROID) 100 mcg tablet daily before breakfast. Taking Yes acetaminophen (TYLENOL 8 HOUR ORAL) Take by mouth. Taking Yes pantoprazole DR (PROTONIX) 40 mg tablet Take 1 tablet by mouth once daily. Take Protonix 4 hours after taking Levothyroxine Taking Yes No medication comments found. ALLERGIES No Known Allergies Objective PHYSICAL EXAM: (if completed, exam performed via video enabled technology) General: alert and oriented and healthy appearance. Pertinent negatives noted - not distressed. Skin: normal color, no rash or lesions. HEENT: Head is normocephalic, no abnormality or lesion noted Eyes show no injection and visual acuity is grossly normal Ears note grossly normal hearing Nose exam notes external nose is normal without rhinorrhea Oropharynx exam notes moist mucous membranes with no noted tonsillar hypertrophy, erythema or edema Uvula is midline. . Cardiovascular: Patient palpated radial pulse, regular when counted aloud by patient. Capillary refill is less than 3 seconds in bilateral upper extremities. . Respiratory: Equal chest rise with normal respiratory effort . Abdomen: soft. Pertinent negatives noted - not distended and not tender. No pain upon palpation by patient . Extremities: no deformity, no edema or tenderness, no joint swelling or clubbing. Neurological: normal cognition and motor skills. Gait stated to be normal per patient . PAIN ASSESSMENT: VITALS: BP 120/82[per pt[ Pulse 82 Temp [does not have a thermometer available - feeling well[ Resp 17 Ht 5' 3 (1.60m) Wt 135 lb (61.2kg) LMP 07/23/2008 BMI 23.92 kg/(m^2). Diagnostic tests reviewed for today's visit: Lab Value Units Date High Low HB 13.7 g/dL 03/06/2023 15.5 11.5 HCT 41.8 % 03/06/2023 46.0 36.0 WBC 7.17 k/uL 03/06/2023 11.00 3.70 PLT 179 k/uL 03/06/2023 400 150 NA 143 mmol/L 03/06/2023 144 136 K 4.3 mmol/L 03/06/2023 5.1 3.7 GLUC 88 mg/dL 03/06/2023 99 74 BUN 8 mg/dL 03/06/2023 21 7 CREAT 0.78 mg/dL 03/06/2023 0.96 0.58 PTSEC No results within date range. INR No results within date range. APTT No results within date range. ALT 12 U/L 03/06/2023 38 7 AST 15 U/L 03/06/2023 35 13 TBILI 0.5 mg/dL 03/06/2023 1.3 0.2 TSH 15.710 mIU/L 03/05/2023 4.200 0.270 Lab Value Units Date High Low HCGQT No results within date range. UHCG No results within date range. HCG, BODY* No results within date range. Lab Value Units Date High Low ABORHD No results within date range. ABSCREEN No results within date range. No results found for: HBA1C Recent Results (from the past 8760 hour(s)) ECG COMPLETE Collection Time: 03/05/23 12:05 AM Result Value Ventricular Rate 93 Atrial Rate 93 P-R Interval 198 QRS Duration 66 QT Interval 352 QTC Calculation (Bazett) 437 Calculated P Ernul 81 Calculated R Ernul 65 Calculated T Ernul 73 Impression NORMAL SINUS RHYTHM ANTEROSEPTAL INFARCT , AGE UNDETERMINED ABNORMAL ECG NO PREVIOUS ECGS AVAILABLE Confirmed by MD ANKIT, SAMANTHA ([id number]) on 03/09/2023 10:02:57 PM No results found for this or any previous visit (from the past 36791 hour(s)). Assessment Patient has the following medical conditions which may affect oracio-operative course: Tobacco use disorder Assessment: current use of 1 ppd Multiple gastric ulcers Assessment: Per EGD from 03/06/2023: Upper endoscopy showed - Normal duodenal bulb, first portion of the duodenum and second portion ofthe duodenum. Biopsied. Non-bleeding gastric ulcers with no stigmata of bleeding. Biopsied. Z-line irregular, 40 cm from the incisors. Biopsied. 1 cm hiatal hernia. Is tolerating pantoprazole well Following with Dr. Dowell with GI Biliary dyskinesia Assessment: planned upcoming procedure for Hypothyroidism Assessment: States is well controlled with levothyroxine and denies any recent dosage adjustments Follows with PCP Smith Activity Status Index: METS: Do heavy work around the house, such as scrubbing floors, lifting or moving heavy furniture (8.00 METs) DASI Score: 8 (Limited due to recent cervical spine surgery ) Patient denies any chest pain or undue shortness of breath with the above physical activity. Clinical Frailty Scale: 3. Well, with treated comorbid disease STOP-Bang Score: Snores loudly Patient over 50 years old Denies feeling tired, fatigued, or sleepy during the daytime Has not been observed to stop breathing or choking/gasping during sleep Denies having high blood pressure BMI less than or equal to 35 kg/m^2 Does not have a large neck Non-male patient STOP-Bang Score: 2 [id number] Score: [id number] Score: 0 ANESTHESIA FINDINGS: Intubation History: No history of difficult intubation. No abnormal airway history Significant Anesthesia Considerations: none Airway History: No prior airway or anesthetic complication noted upon chart review. No history of difficult airway No abnormal airway history I - PHYSICAL EVALUATION AIRWAY Patient intubated: No. Tracheostomy tube not present Mallampati: II. TM distance: >3 FB. Neck ROM: limited flexion and extension. Mouth opening: adequate. Short neck: no. Additional comments: Limited neck ROM in all directions . Thick neck: no Mcdonald present: no Lip Bite Test: I Microretrognathia/Micronagthia/Recessed Chin: No DENTAL Dental findings: teeth intact. Additional comments: Denies any chipped or broken teeth. Denies any dental pain or infections. . II - ANESTHESIA PLAN Anesthetic Plan: other Anesthetic plan additional comments: *PACC/TCI - anesthesia choice. Beta Dominique Monitoring Plan Post Procedure Analgesic Plan Prepared for Surgery: optimally prepared for surgery, pending [see comment]. I will send a letter to her spine surgeon to ensure she may proceed given recent cervical spine fusion on 04/06/2023. Pending letter response for optimization. LABS CONSULTS: Planned Anesthetic: other anesthesia choice The Following Tests/Procedures Have Been Initiated: Orders Placed This Encounter CBC with Differential Standing Status: Future Standing Expiration Date: 07/05/2023 CMP Standing Status: Future Standing Expiration Date: 07/05/2023 Instructions Given to Patient: Instructions located in the after visit summary. Patient given verbal and written preop instructions and voices comprehension and compliance. SIGNATURE: Deborah Sahu PA-C PATIENT NAME: Katie Vasquez DATE: May 05, 2023 TIME: 10:43 AM PAGER/CONTACT #: documented in this encounterKind[facility]07-26-[facility]23 NoteHNO ID: [id number] Author: Marta Morrison MD Service: ? Author Type: Physician Type: Progress Notes Filed: 04/12/2023 1:44 PM Note Text: IMPRESSION AND PLAN: 58 year old wf with biliary dyskinesia, Risks, benefits and alternatives of proceeding with laparoscopic cholecystectomy were discussed with risks to include but not limited to hemorrhage, infection, possibility of common bile duct injury, possible intra-abdominal organ injury ,possible conversion to open. Patient expressed understanding and wishes to proceed. Will call to schedule after cervical neck surgery next week Low fat diet education provided to help ease/prevent sx until able to have surgery HPI: Katie Vasquez is a 58 year old female,She presents for the evaluation of biliary dyskinesia,pt reports approx 1 year h/o intermittent, ruq pressure with occ pain. Now constant, no nausea, + bloating and gassiness, occ loose stool, pain radiates to luq at times and right back. Was seen in [place] ED and dx['s with bruised ribs despite no trauma, following day went to [place] ER was admitted 03/05-03/06. Had ct and gi consult, egd with non bleeding gastric ulcers. Ruq us with borderline cbd dilation , no stones. Had outpt HIDA - EF 32%. Has not been on low fat diet, yesterday had pizza. Due to have cervical neck surgery next week PAST MEDICAL HISTORY Diagnosis Date Anxiety Hypothyroidism S/P 4 S/P ear surgery Spinal stenosis PAST SURGICAL HISTORY Procedure Laterality Date DELIVERY ONLY x4 PAST SURGICAL HISTORY OF 12/04/2015 Left Robotic Pyeloplasty PAST SURGICAL HISTORY OF Right ear; graft; hole in eardrum PAST SURGICAL HISTORY OF Left 2021 tubes placed in ear SPINE SURGERY HX History reviewed. No pertinent family history. CURRENT MEDICATIONS: levothyroxine (SYNTHROID) 100 mcg tablet daily before breakfast. acetaminophen (TYLENOL 8 HOUR ORAL) Take by mouth. pantoprazole DR (PROTONIX) 40 mg tablet Take 1 tablet by mouth once daily. Take Protonix 4 hours after taking Levothyroxine CURRENT ALLERGIES: ALLERGIES No Known Allergies Social History Tobacco Use Smoking status: Every Day Packs/day: 1.00 Years: 27.00 Total pack years: 27.00 Types: Cigarettes Smokeless tobacco: Never Vaping Use Vaping Use: Never used Substance Use Topics Alcohol use: Not Currently Drug use: Never EXAM: BP 164/82 Pulse 78 Ht 160 cm (5' 3 ) Wt 61.7 kg (136 lb) LMP 07/23/2008 BMI 24.09 kg/m? BP 164/82 Pulse 78 Ht 160 cm (5' 3 ) Wt 61.7 kg (136 lb) LMP 07/23/2008 BMI 24.09 kg/m? Body mass index is 24.09 kg/m?. General appearance: Well appearing, alert, in no acute distress Head: Normocephalic, atraumatic Eyes: Anicteric sclera , Pupils are equally round and reactive Neck: No JVD, Trachea midline Lungs:Clear to auscultation, no wheezing or rhonchi Heart: RRR without murmur, gallop, or rubs. No ectopy Abdomen: Abdomen soft, mild ruq tn Non distended. No masses, organomegaly Extremities:No clubbing, cyanosis, or edema. Neuro: Alert and oriented times three, No apparent distress Diagnostic tests reviewed for today's visit: Recent admit records reviewed RADIOLOGY: ruq us Borderline common duct dilatation. Correlation with clinical and laboratory data is recommended HIDA - EF 32% Marta Morrison MD 03/31/2023 1:39 [facility]07-26-2023 History of Present illness Narrative * Marta Morrison MD - 03/31/2023 1:38 PM EDT IMPRESSION AND PLAN: 58 year old wf with biliary dyskinesia, Risks, benefits and alternatives of proceeding with laparoscopic cholecystectomy were discussed with risks to include but not limited to hemorrhage, infection,possibility of common bile duct injury, possible intra-abdominal organ injury ,possible conversion to open. Patient expressed understanding and wishes to proceed. Will call to schedule after cervical neck surgery next week Low fat diet education provided to help ease/prevent sx until able to have surgery HPI: Katie Vasquez is a 58 year old female,She presents for the evaluation of biliary dyskinesia,pt reports approx 1 year h/o intermittent, ruq pressure with occ pain. Now constant, no nausea,+ bloating and gassiness, occ loose stool, pain radiates to luq at times and right back. Was seen in [place] ED and dx['s with bruised ribs despite no trauma, following day went to [place] ER was admitted 03/05-03/06. Had ct and gi consult, egd with non bleeding gastric ulcers. Ruq us with borderline cbddilation , no stones. Had outpt HIDA - EF 32%. Has not been on low fat diet, yesterday had pizza. Due to have cervical neck surgery next week PAST MEDICAL HISTORY Diagnosis Date Anxiety Hypothyroidism S/P 4 S/P ear surgery Spinal stenosis PAST SURGICAL HISTORY Procedure Laterality Date DELIVERY ONLY x4 PAST SURGICAL HISTORY OF 12/04/2015 Left Robotic Pyeloplasty PAST SURGICAL HISTORY OF Right ear; graft; hole in eardrum PAST SURGICAL HISTORY OF Left 2021 tubes placed in ear SPINE SURGERY HX History reviewed. No pertinent family history. CURRENT MEDICATIONS: levothyroxine (SYNTHROID) 100 mcg tablet daily before breakfast. acetaminophen (TYLENOL 8 HOUR ORAL) Take by mouth. pantoprazole DR (PROTONIX) 40 mg tablet Take 1 tablet by mouth once daily. Take Protonix 4 hours after taking Levothyroxine CURRENT ALLERGIES: ALLERGIES No Known Allergies Social History Tobacco Use Smoking status: Every Day Packs/day: 1.00 Years: 27.00 Total pack years: 27.00 Types: Cigarettes Smokeless tobacco: Never Vaping Use Vaping Use: Never used Substance Use Topics Alcohol use: Not Currently Drug use: Never EXAM: BP 164/82 Pulse 78 Ht 160 cm (5' 3 ) Wt 61.7 kg (136 lb) LMP 07/23/2008 BMI 24.09 kg/m BP 164/82 Pulse 78 Ht 160 cm (5' 3 ) Wt 61.7 kg (136 lb) LMP 07/23/2008 BMI 24.09 kg/m Body mass index is 24.09 kg/m . General appearance: Well appearing, alert, in no acute distress Head: Normocephalic, atraumatic Eyes: Anicteric sclera , Pupils are equally round and reactive Neck: No JVD, Trachea midline Lungs:Clear to auscultation, no wheezing or rhonchi Heart: RRR without murmur, gallop, or rubs. No ectopy Abdomen: Abdomen soft, mild ruq tn Non distended. No masses, organomegaly Extremities:No clubbing, cyanosis, or edema. Neuro: Alert and oriented times three, No apparent distress Diagnostic tests reviewed for today's visit: Recent admit records reviewed RADIOLOGY: ruq us Borderline common duct dilatation. Correlation with clinical and laboratory data is recommended HIDA - EF 32% Marta Morrison MD 03/31/2023 1:39 PM [facility] NoteHNO ID: [id number] Author: Larry Doe CT Service: Nuclear Medicine Author Type: Technologist Type: Progress Notes Filed: 03/29/2023 9:25 AM Note Text: RADIOLOGY SERVICE PROGRESS NOTE SERVICE DATE: 03/29/2023 SERVICE TIME: 9:24 AM PATIENT IDENTITY VERIFICATION COMPLETED USING TWO (2) STANDARD IDENTIFIERS: Name and Date of confirmed by patient verbally and Name and Date of confirmed by identification band FALL SCREENING: Has the patient had 2 falls in the last year or 1 fall with injury or currently using an Ambulatory Assistive Device (Walker, Cane, Wheelchair, Crutches, etc.)? No PATIENT GENDER DATA: .female : No ALLERGIES: Reviewed and unchanged MEDICATIONS REVIEWED: Not applicable PATIENT RELEVANT IMPLANT DATA REVIEWED: Not Applicable CREATININE: Creatinine Date Value Ref Range Status 03/06/2023 0.78 0.58 - 0.96 mg/dL Final 03/05/2023 0.70 0.58 - 0.96 mg/dL Final 03/05/2023 0.75 0.58 - 0.96 mg/dL Final Estimated Glomerular Filtration Rate Date Value Ref Range Status 03/06/2023 88 >=60 mL/min/1.73m? Final Comment: Estimated Glomerular Filtration Rate (eGFR) is calculated using the 2020 CKD-EPI creatinine equation. This equation utilizes serum creatinine, sex, and age as parameters. The creatinine assay has traceable calibration to isotope dilution-mass spectrometry. Refer to KDIGO guidelines for clinical interpretation. In patients with unstable renal function, e.g. those with acute kidney injury, the eGFR may not accurately reflect actual GFR. eGFR- Date Value Ref Range Status 12/06/2015 >60 Final P.O.C.T. RESULTS: N/A March 29, [address] PERFORMED: No IV SITE: Ambulatory: NM only - direct IV injection in the Left antecubital site POST EXAM PIV STATUS: Not applicable PROCEDURE TYPE: NM INJECT: hida ef. 5.8 mCi Tc99m CHOLETEC. 8 oz ensure enlive. ADMINISTRATION TIME: 08:43 PATIENT DISCHARGED TO: Ambulatory patient, left PR department area. A Diagnostic radioactive procedure has taken place, with no further precautions necessary other than routine body substance precautions. More information regarding radiation safety can be found using this link: [email or web address] SIGNATURE: JAN Nichols PATIENT NAME: Katie Vasquez DATE: March 29, 2023 TIME: 9:24 AM [id number] NoteHNO ID: [id number] Author: Manisha Montero MD Service: Hospital Medicine Author Type: Physician Type: Progress Notes Filed: 03/06/2023 6:50 AM Note Text: DEPARTMENT OF HOSPITAL MEDICINE PROGRESS NOTE SERVICE DATE: 03/05/2023 SERVICE TIME: 3:26 PM Hospital Medicine/Primary Attending: Talia Morin DO NIGHT AND WEEKEND COVERAGE: ARARAT COVERAGE: Days: [phone], please page attending physician. Nights: [phone], please page [place] [facility] Night coverage pager [phone]. Subjective INTERVAL HPI: Patient admitted with RUQ pain which is persistent . -Smoker , uses NSIADS,excedrin ARGUETA ,does not currently drink alcohol but no recreational drugs Now with ARGUETA,photophobia,nausea similar to her migraine ARGUETA's-no focal neuro deficit Current Facility-Administered Medications Medication Dose Route Frequency NaCl 0.9% iv flush bag 20 mL INTRAVENOUS PRN ondansetron (PF) 4 mg injection (ZOFRAN) 4 mg INTRAVENOUS q 6 H PRN levothyroxine 100 mcg tab(s) (SYNTHROID) 100 mcg ORAL BEFORE BREAKFAST DAILY HYDROmorphone 0.5 mg injection (DILAUDID) 0.5 mg INTRAVENOUS q 3 H PRN nicotine 21 mg/24 hr 1 Patch (NICODERM) 1 Patch TRANSDERMAL DAILY And nicotine -- REMOVE patch OTHER DAILY And nicotine - verify patch OTHER q [address] 40 mg tab(s) (PROTONIX) 40 mg ORAL DAILY (6 AM) polyethylene glycol 3350 17 g packet 17 g ORAL DAILY Objective PHYSICAL EXAM: BP 105/46 Pulse 73 Temp (Src) 98.4 (Oral) Resp 18 Ht 5' 3 (1.60m) Wt 145 lb (65.8kg) SpO2 94% LMP 07/23/2008 BMI 25.69 kg/(m2). O2 Therapy: Room Air Physical Exam Performed GENERAL: Alert, no distress, cooperative LUNGS: Lungs clear to auscultation,No wheezes nor rhonchi CARDIAC: Normal S1 and S2; no rubs, murmurs, or gallops ABDOMEN: Abdomen soft, RUQ/epigastric tenderness with mild guarding but no rebound ,mckeon's sign not checked due to pain . BS normal, No palpable masses EXTREMITIES:No edema ,calf tenderness nor erythema NEURO:Awake,alert,oriented x3.Can move all extremity w/o new focal neurological deficit Lines, Drains, and Airways Line Duration Peripheral 03/05/23 0100 [facility] Short Left Antecubital 20 Gauge 1 day Reviewed lines and needs to be continued: REASONS: Intravenous fluids, Telemetry, and Electrolyte replacement DATA: Diagnostic tests reviewed for today's visit: Most recent labs Most recent imaging Most recent EKG Assessment/Plan Problem List Abdominal pain POA: Yes Tobacco use disorder POA: Yes Hypothyroidism POA: Yes HOSPITAL COURSE: Katie Vasquez is a 58 year old female presented with Active Problem: Right upper quadrant Abdominal pain Assessment AND Plan: CTA/P NAP. small duodenal diverticulum, measuring about 2 cm, containing some debris, but without wall thickening or inflammatory changes. Moderate stool volume in the proximal colon with smaller scattered volume distally RUQ ultrasound with Borderline common duct dilatation. UA/LFT ,lipase unremarkable Suspect pain is due to PUD given hx of NSAID use ,smoking and constipation making matters worse Suspect uncontrolled pain likely triggering her migraines Will give IV protonix 40mg and IV pepcid 20mg x1 Then start daily PPI pending GI eval for possible EGD am Will defer bowel regimem mgt to GI Acute ARGUETA /migraines with nausea Will give IV mag, imitrex,zofran Hold off on NSAIDS/steroids given RUQ pain likely due to PUD Reasses later with symptom improvement reported by RN Tobacco use disorder Assessment AND Plan: Continue nicotine patch Hypothyroidism Assessment AND Plan: Patient reports drinking her thyroid with black coffee w/o milk every am hours before hear meal which is usually lunch . TSH 15.7 Free T3 and T4 in process Will increase to 125 mcg starting am Repeat TSH in 2 months Will recc that she take synthroid with water if possible Constipation Defer bowel regimen to GI Medication and Non-Pharmacologic VTE Prophylaxis/Anticoagulants 03/05/23 0545 activity - mobilize patient (hi,co) VTE Prophylaxis: VTE prophylaxis appropriate Disposition: Home Plan of care discussed with Patient and RN Plan communicated to: N/A SIGNATURE: Manisha Montero MD PATIENT NAME: Katie Vasquez DATE: March 05, 2023 TIME: 5:26 PM[facility] [id number] History of Past illness Narrative* Problem Noted Date Diagnosed Date Resolved Date Abdominal pain 03/05/2023 03/31/2023 documented as of this encounter (statuses as of 04/12/2023) [facility] History of Past illness Narrative* Problem Noted Date Diagnosed Date Resolved Date Abdominal pain 03/05/2023 03/31/2023 Chest pain, unspecified 07/30/200804/08 Overview: Rec Ibuprofen 600 mg three times a day for R chest wall pain in 07-14 CXR negative at [facility] in 07-14 documented as of this encounter (statuses as of 05/05/2023) [facility] History of Past illness Narrative* Problem Noted Date Diagnosed Date Resolved Date Abdominal pain 03/05/2023 03/31/2023 Chest pain, unspecified 07/30/200804/08 Overview: Rec Ibuprofen 600 mg three times a day for R chest wall pain in 07-14 CXR negative at [facility] in 07-14 documented as of this encounter (statuses as of 05/24/2023) [facility] History of Past illness Narrative* Problem Noted Date Diagnosed Date Resolved Date Abdominal pain 03/05/2023 03/31/2023 Chest pain, unspecified 07/30/200804/08 Overview: Rec Ibuprofen 600 mg three times a day for R chest wall pain in 07-14 CXR negative at [facility] in 07-14 documented as of this encounter (statuses as of 05/26/2023) [facility] Diagnosis Abdominal pain, right upper quadrant- Primary Epigastric abdominal pain Abdominal pain, epigastric Biliary dyskinesia Other specified disorder of gallbladder [facility] Diagnosis Pre-op evaluation- Primary Preoperative examination, unspecified Tobacco use disorder Multiple gastric ulcers Biliary dyskinesia Other specified disorder of gallbladder Hypothyroidism, unspecified type Biliary dyskinesia Other specified disorder of gallbladder [facility] Diagnosis Biliary dyskinesia- Primary Other specified disorder of gallbladder [facility] Diagnosis Biliary dyskinesia- Primary Other specified disorder of gallbladder documented in this [facility] Summary Purpose Family History No Family History Records FoundNo Family History Records FoundNo Family History Records Found Advance Directives No Advanced Directives Records FoundNo Advanced Directives Records FoundNo Advanced Directives Records Found Medications Administered Section Inactive Administered Medications - up to 3 most recent administrations Medication Order MAR Action Action Date Dose Rate Site acetaminophen 1,000 mg tab(s) (TYLENOL) 1,000 mg, ORAL, PRE-OP ONCE, 1 dose, On Wed05/25/23 at 1100, If ordered PRN for pain, patient/guardian may elect to receive this medication for higher pain levels INSTEAD of the opioid, if preferred: Yes, Preprocedure Given 05/25/2023 10:55 AM EDT 1,000 mg fentaNYL 50 mcg/mL 50 mcg injection (SUBLIMAZE) 50 mcg, INTRAVENOUS, EVERY 10 MINUTES NEEDED, 4 doses, Starting on Wed05/25/23 at 1251, Until Wed05/26/23 at 0303, FIRST LINE THERAPY for pain score 1 or greater, USE FOR MILD PAIN (1-3) ONLY IF PATIENT IS UNABLE TO TOLERATE ORAL THERAPY, Recovery or Phase I (only) HYDROmorphone 0.2 mg injection (DILAUDID) 0.2 mg, INTRAVENOUS, EVERY 5 MINUTES NEEDED, 10 doses, Starting on Wed05/25/23 at 1251, Until Wed05/26/23 at 0303, SECOND LINE THERAPY for pain score 1 or greater, USE FOR MILD PAIN (1-3) ONLY IF PATIENT IS UNABLE TO TOLERATE ORAL THERAPY, Recovery or Phase I (only) Given 05/25/2023 1:13 PM EDT 0.2 mg Additional Source Comments INFORMATION SOURCE (unrecogn ized section and content) DATE CREATED AUTHOR AUTHOR'S ORGANANA LUISA ATION 06/07/2023 [facility] DATE CREATED AUTHOR AUTHOR'S ORGANIZ ATION 08/05/2023 [facility] Source Comments (unrecognize d section and content) In the event this informatio n is protected by the Federal Confidentiality of Alcohol and Drug Abuse Patient Records regulations: The Federal rules restrict any use of the information to criminally investigate or prosecute any alcohol or drug abuse patient.[facility] the event this information is protected by the Federal Confidentiality of Alcohol and Drug Abuse Patient Records regulations: The Federal rules restrict any use of the information to criminally investigate or prosecute any alcohol or drug abuse patient.[facility] the event this information is protected by the Federal Confidentiality of Alcohol and Drug Abuse Patient Records regulations: The Federal rules restrict any use of the information to criminally investigate or prosecute any alcohol or drug abuse patient.[facility] the event this information is protected by the Federal Confidentiality of Alcohol and Drug Abuse Patient Records regulations: The Federal rules restrict any use of the information to criminally investigate or prosecute any alcohol or drug abuse patient.[facility] the event this information is protected by the Federal Confidentiality of Alcohol and Drug Abuse Patient Records regulations: The Federal rules restrict any use of the information to criminally investigate or prosecute any alcohol or drug abuse patient.[facility] Reason for Visit (unrecogniz ed section and content) Reason Comments [facility] Special[facility] Diagnoses / Procedures Referred By Arnulfo santiago Referred To Contact Diagnoses Biliary dyskinesia Procedures LAPS SURG CHOLECYSTECTOMY W/CHOLANGIOGRAPHY LAPAROSCOPIC CHOLECYSTECTOMY WITH GRAMS [facility] [address] [place] [address] Referral ID Status Reason Start Date Expiration Date Visits Re quested Visits Authorized [id number] 1 1 Reason Comments Post-Op Visit 05/25 lap liliana Care Teams (unrecognized sec tion and content) Band Saw Runner Relationship Specialty Start Date End Date Luciano Gloria MD PCP - General Family Medicine 10/28/15 Band Saw Runner Relationship Specialty Start Date End Date Luciano Gloria MD PCP - General Family Medicine 10/28/15 Band Saw Runner Relationship Specialty Start Date End Date Luciano Gloria MD PCP - General Family Medicine 10/28/15 Band Saw Runner Relationship Specialty Start Date End Date Luciano Gloria MD PCP - General Family Medicine 10/28/15 Scheduled Active and Recently Administ ered Medications (unrecognized section and content) Continuous Medication Order 05/23/2023 05/24/2023 05/25/2023 lactated ringers iv infusion (CANCELED) 30 mL/hr, INTRAVENOUS, CONTINUOUS, Starting on Wed05/25/23 at 1100, Until Wed05/25/23 at 1244, Preprocedure 1056 (New Bag/Syring e/Bottle - Provider: Marie Abarca RN)1133 (Stopped - Provider: Starla Aguilar APRN.CRNA - Comment: Switch to gravity)1134 (Restarted - Provider: Starla Aguilar APRN.CRNA)1242 (Infusion Complete - Provider: Starla Aguilar APRN.CRNA) lactated ringers iv infusion 5-30 mL/hr, INTRAVENOUS, CONTINUOUS, Starting on Wed05/25/23 at 1300, Until Wed05/26/23 at 0303, Recovery or Phase I (only) 1300 (Due) PRN Medication Order 05/23/2023 05/24/2023 05/25/2023 fentaNYL 50 mcg/mL 50 mcg injection (SUBLIMAZE) 50 mcg, INTRAVENOUS, EVERY 10 MINUTES NEEDED, 4 doses, Starting on Wed05/25/23 at 1251, Until Wed05/26/23 at 0303, FIRST LINE THERAPY for pain score 1 or greater, USE FOR MILD PAIN (1-3) ONLY IF PATIENT IS UNABLE TO TOLERATE ORAL THERAPY, Recovery or Phase I (only) HYDROmorphone 0.2 mg injection (DILAUDID) 0.2 mg, INTRAVENOUS, EVERY 5 MINUTES NEEDED, 10 doses, Starting on Wed05/25/23 at 1251, Until Wed05/26/23 at 0303, SECOND LINE THERAPY for pain score 1 or greater, USE FOR MILD PAIN (1-3) ONLY IF PATIENT IS UNABLE TO TOLERATE ORAL THERAPY, Recovery or Phase I (only) 1310 (Given - Provid er: Abiodun Sanz RN)1313 (Given - Provider: Abiodun Sanz RN) HYDROmorphone 0.5 mg injection (DILAUDID) (COMPLETED) 0.5 mg, INTRAVENOUS, POST-OP PRN, 1 dose, Starting on Wed05/25/23 at 1315, Until Wed05/25/23 at 1332, breakthrough pain, HIGH RISK MEDICATION Caution: Hydromorphone is 5 - 7 times MORE POTENT than morphine. For example: Hydromorphone 1mg IV = morphine 7mg IV 1332 (Given - Provid er: Abiodun Sanz RN) iohexol IV injection (OMNIPAQUE 300) (CANCELED) X (OR/PROCEDURE) PRN, Starting on Wed05/25/23 at 1215, Until Wed05/25/23 at 1249, Intraprocedure 1215 (Given - Provid er: Marta Morrison MD - Comment: lap liliana with grams) NaCl 0.9% irrigation bag (CANCELED) X (OR/PROCEDURE) PRN, Starting on Wed05/25/23 at 1233, Until Wed05/25/23 at 1249, Intraprocedure 1233 (Given - Provid er: Marta Morrison MD) ondansetron (PF) 4 mg injection (ZOFRAN)(Linked Group 2) 4 mg, INTRAVENOUS, EVERY 6 HOURS NEEDED, Starting on Wed05/25/23 at 1251, Until Wed05/26/23 at 0303, Nausea/Vomiting - Second Line - Parenteral, EVERY 6 HOURS NEEDED Give IV push over 2 minutes. Use when patient unable to take medications by mouth., Recovery or Phase I (only) ondansetron orally disintegrating 4 mg tab(s) (ZOFRAN ODT)(Linked Group 2) 4 mg, ORAL, EVERY 6 HOURS NEEDED, Starting on Wed05/25/23 at 1251, Until Wed05/26/23 at 0303, Nausea/Vomiting - Second Line - Enteral, EVERY 6 HOURS NEEDED Use when patient able to take medications by mouth. Place tablet on tongue and allow to dissolve; do not chew. Open packaging using dry hands; do not push tablet through packaging., Recovery or Phase I (only) oxyCODONE IR 5 mg tab(s) (ROXICODONE) (COMPLETED) 5 mg, ORAL, NEEDED, 1 dose, Starting on Wed05/25/23 at 1251, Until Wed05/25/23 at 1500, Moderate Pain (4-6) - Enteral, Recovery or Phase I (only) 1500 (Given - Provid er: Marie Abarca RN) prochlorperazine 10 mg injection (COMPAZINE) 10 mg, INTRAVENOUS, EVERY 6 HOURS NEEDED, Starting on Wed05/25/23 at 1251, Until Wed05/26/23 at 0303, Nausea/Vomiting - First Line - Parenteral, EVERY 6 HOURS NEEDED Protect From Light, Recovery or Phase I (only) Linked Groups Order Group 1: nicotine 21 mg/24 hr 1 Patch (NICODERM) (CANCELED)Jump to med 1 Patch, TRANSDERMAL, DAILY, First dose on Wed05/25/23 at 1100, Until Discontinued
Remove old patch before applying new patch. Rotate the application site for the patch daily. Do not apply the patch to the same spot for at least 7 days. - Pharmaceutical Waste: P-Listed -
Preprocedure And nicotine -- REMOVE patch (CANCELED) DAILY, Preprocedure
THIS IS USED ONLY TO DOCUMENT PATCH REMOVAL. Use Remvd Patch action.
And nicotine - verify patch (CANCELED) EVERY 8 HOURS, Preprocedure
THIS IS USED ONLY TO DOCUMENT THAT THE PATCH IS VERIFIED ON OR OFF PER ORDER. Use Patch On or Patch Off action.
Group 2: ondansetron orally disintegrating 4 mg tab(s) (ZOFRAN ODT)Jump to med 4 mg, ORAL, EVERY 6 HOURS NEEDED, Starting on Wed05/25/23 at 1251, Until Wed05/26/23 at 0303, Nausea/Vomiting - Second Line - Enteral
EVERY 6 HOURS NEEDED Use when patient able to take medications by mouth. Place tablet on tongue and allow to dissolve; do not chew. Open packaging using dry hands; do not push tablet through packaging.
Recovery or Phase I (only) Or ondansetron (PF) 4 mg injection (ZOFRAN)Jump to med 4 mg, INTRAVENOUS, EVERY 6 HOURS NEEDED, Starting on Wed05/25/23 at 1251, Until Wed05/26/23 at 0303, Nausea/Vomiting - Second Line - Parenteral
EVERY 6 HOURS NEEDED Give IV push over 2 minutes. Use when patient unable to take medications by mouth.
Recovery or Phase I (only) FOR RECORDS PERTAINING TO PATIENTS WHO ARE OR HAVE BEEN ENROLLED IN A CHEMICAL DEPENDENCY/SUBSTANCEABUSE PROGRAM, SOME INFORMATION MAY BE OMITTED. This clinical summary was aggregated from multiple sources. Caution should be exercised in using it in the provision of clinical care. This summary normalizes information from multiple sources, and as a consequence, information in this document may materially change the coding, format and clinical context of patient data. In addition, data may be omitted in some cases. CLINICAL DECISIONS SHOULD BE BASED ON THE PRIMARY CLINICAL RECORDS. [employer] provides no warranty or guarantee of the accuracy or completeness of information in this document.
[2023-10-18 16:26] LABS: Anion Gap 5 (5-15); BUN 13 mg/dL (7-18); BUN/Creat Ratio 16.2 RATIO (10-20); Calcium,Total 9.5 mg/dL (8.5-10.1); Chloride 109 mmol/L (98-107); Cholesterol 218 mg/dL (200); EST Glomerular Filtration Rate 78 mL/min (>60); Est Glom Filt Rate - Afr Amer 94 mL/min (>60); Free T3 2.8 pg/mL (2.18-3.98); Glucose 111 mg/dL (74-106); High Density Lipoprotein 44 mg/dL; Potassium 3.9 mmol/L (3.5-5.1); Sodium Level 141 mmol/L (136-145); T4 Free Direct 1.73 ng/dL (0.76-1.46); Triglycerides 134 mg/dL; Very Low Density Lipoprotein 27 mg/dL (5-40)
== END | disposition home or self-care (01) ==
LOC: MFPLAB 11:19
PROVIDERS: PCP Family Medicine; Visit Provider Family Medicine
DX: R03.0 Elevated blood-pressure reading, without diagnosis of hypertension (principal); E03.9 Hypothyroidism, unspecified
CPT/HCPCS: 36415; 80048; 80061; 84439; 84443; 84481

== ENCOUNTER 2023-11-07 09:46 | Emergency (ER) | payer BC, SELFPAY ==
[2023-11-07 09:47] VITALS: BP 147/96; PULSE 121; RESP 18; TEMP 36.3; O2SAT 98; BMI 26.4
--- NOTE | 2023-11-07 10:06 | ED.VIS.CHEST ---
HPI History of Present Illness Chief Complaint: Chest Other [facility] Medical History Alcohol use Anemia Anxiety Cervical stenosis (uterine cervix) (~2014) delivery delivered (~1990) Chronic cough Foraminal stenosis of cervical region Herniated nucleus pulposus, C4-5 left History of hiatal hernia History of steroid therapy History of stress test History of ulceration Hx of emphysema Hypothyroidism Leg cramps Loss of hearing Marijuana use Peripheral arterial disease Post-menopausal Smoker Spinal stenosis of lumbar region Home Medications levothyroxine 100 mcg tablet (Synthroid) 100 mcg PO DAILY THYROID 07/14/22 [History Last Taken 04/06/23] pantoprazole 40 mg tablet,delayed release 40 mg PO DAILY GERD 03/19/23 [History Last Taken 04/06/23] nortriptyline 50 mg capsule mg PO 04/21/23 [History Last Taken Unknown] albuterol sulfate 90 mcg/actuation aerosol inhaler inhalation 06/11/23 [History Last Taken Unknown] budesonide-formoterol HFA 80 mcg-4.5 mcg/actuation aerosol inhaler inhalation 06/11/23 [History Last Taken Unknown] nirmatrelvir 300 mg (150 mg x2)-ritonavir 100 mg tablet,dose pack (Paxlovid) See Rx Instructions PO .COMPLEX #30 tabs 11/07/23 [Rx Last Taken Unknown] Allergy/AdvReac Type Severity Reaction Status Date / Time No Known Allergies Allergy Verified 11/07/23 09:48 Family History Other CAD (coronary artery disease) Diabetes Thyroid disorder Surgical History History of esophagogastroduodenoscopy (EGD) History of tympanoplasty Hx of cervical spine surgery Hx of cholecystectomy Hx of myringotomy S/P laparoscopic procedure (~2015) Social History Smoking Status: Current every day smoker tobacco type: cigarettes alcohol intake: current alcohol intake frequency: a few times a week EXAM Physical Exam Const Vital Signs: 11/07/23 09:47 11/07/23 10:03 11/07/23 10:31 Temperature 97.3 F L Temperature Source Temporal Pulse Rate 121 H Respiratory Rate 18 Respiratory Effort Short of Breath Labored Blood Pressure 147/96 H Blood Pressure Mean 113 Pulse Ox 98 96 Oxygen Delivery Method Room Air Room Air [facility] Narrative Medical decision making narrative: HISTORY OF PRESENT ILLNESS: 58-year-old female presents with right lower rib pain. Notes she tested positive for COVID last night. Pain is worse with cough. Denies any jess chest pain. Notes shortness of breath with cough. Patient denies sudden onset of pain, no tearing sensation, no migratory symptoms, no new numbness, weakness or loss of sensation. Patient denies family history or personal history of Marfan syndrome or Tosin-Danlos. The patient denies recent surgery in the last 4 weeks or immobilization in the last 3 days, denies previous diagnosis of DVT or PE, hemoptysis, unilateral leg swelling or malignancy with treatment the last 6 months. No estrogen use noted. REVIEW OF SYSTEMS: All other systems reviewed and are negative except as noted in the history of present illness. At least 10 review of systems reviewed and are negative except as noted in history of present illness. PHYSICAL EXAM: Nursing triage notes reviewed, Vital signs reviewed Constitutional: please see mdm HENT: MMM Eyes: Pupils equal round and reactive to light, Extraocular muscles intact Neck: No stridor, no JVD, full neck ROM Lungs: Clear to auscultation, No wheezing or rales. No increased work of breathing, no conversational dyspnea, no accessory muscle use, no nasal flaring. No respiratory distress noted, no reproducible tenderness over the right rib margin Heart: Regular rate and rhythm, No murmurs, No rubs and No gallops, 2+ distal pulses (radial, femoral, posterior tibial) in all extremities Abdomen: Soft, there is no tenderness, rigidity, rebound or guarding, no obvious peritoneal signs, no palpable pulsatile abdominal masses, no auscultated abdominal bruit : No CVAT Extremities: No edema Neuro: No focal neurological deficits, cranial nerves II through XII intact, 5/5 strength in all extremities. Intact sensation to light touch in all extremities, 2+ reflexes bilateral patella tendons. Normal gait. No ataxia. Skin: No rash or lesions noted MEDICAL DECISION MAKING: Chief Complaint: Chest pain External records reviewed: Last stress test was 19 shows No inducible ischemia Factors affecting care: Hypothyroidism Social determinants of health: Alcohol abuse History obtained from others: None Consults: none [facility] Narrative: Patient was initially tachycardic otherwise hemodynamically stable, afebrile and nontoxic-appearing. Patient's initial heart rate was elevated. I considered the following differential diagnosis: COVID induced inflammation, ACS, arrhythmia, anemia, electrolyte abnormality, pneumonia, pneumothorax, GI etiology, PE Given patient initial elevated heart rate I was more concerned for VTE so obtain a D-dimer to further stratify. Also obtain labs images to assess for rib fracture, ACS, and the other after mentioned diagnoses. Aortic dissection is thought to be less likely given no sudden ripping or tearing pain, migratory pain, palpable pulse inequalities, no focal neurologic deficits concurrent with chest pain. Chance of dissection less than 09/1999. Pericarditis less likely given no pathognomonic EKG changes (no diffuse ST elevations, PA depressions). GI etiology (i.e. Boerhaave syndrome) less likely given no chest or neck crepitus, no vomiting or forced retching. ALL IMAGES (IF OBTAINED) HAVE BEEN PERSONALLY REVIEWED AND INTERPRETED BY MYSELF. EKG with sinus tachycardia, normal axis, normal intervals, no STEMI or obvious ischemic changes, similar morphology to prior EKG from August 2023 CBC with leukocytosis suggestive persistent inflammation, hemoconcentration suggestive of dehydration, no thrombocytopenia PE BMP without evidence of significant electrolyte abnormalities, no anion gap, no acute kidney injury. High-sensitivity troponin is negative, no evidence of myocardial ischemia I have personally reviewed the patient's chest x-ray. Chest x-ray is unremarkable for pulmonary edema, pneumothorax, pneumonia or focal cardiopulmonary abnormality. D-dimer (age-adjusted) is negative making VTE less likely I have personally reviewed the patient's chest x-ray. Chest x-ray is unremarkable for pulmonary edema, pneumothorax, pneumonia or focal cardiopulmonary abnormality. The synthesis of the patient's history, physical exam, labs images suggest likely COVID induced inflammation and rib contusion. Will prescribe Paxlovid given history of COPD. I completed a HEART Score to screen for Major Adverse Cardiac Event (MACE) in this patient. The evidence indicates that the patient is very low risk for MACE and this is consistent with my clinical intuition. The risk of further workup or hospitalization for MACE is likely higher than the risk of the patient having a MACE. It is, therefore, in the patient?s best interest not to do additional emergent testing or to be hospitalized for MACE at this time. Shared Decision-Making No hospitalization indicated I have discussed with the patient my clinical impression and the result of the HEART Score to screen for MACE, as well as the risks of further testing and hospitalization. The HEART Score shows that the risk for MACE is less than 1%. Although the risk of MACE has not been completely eliminated, the risks of further testing or hospitalization for MACE likely exceed any potential benefit, and the patient agrees with not pursuing further emergent evaluation or hospitalization for MACE at this time. The patient and/or family, caregivers express understanding. The patient and/or family, caregivers agrees with the plan. Total critical care time today provided was at least 0 minutes. This excludes separately billable procedures. Critical care time (if documented) is secondary to the patient having high probability of clinically significant/life threatening deterioration in the patient's condition which required my urgent intervention. Impression: 1. COVID-19 2. Rib contusion Disposition: Discharge home Michael An, Lab Data Labs: Laboratory Results - last 24 hr 11/07/23 10:29 WBC 12.2 H RBC 5.37 Hgb 15.5 H Hct 48.4 H MCV 90.1 MCH 28.9 MCHC 32.0 RDW Std Deviation 45.1 H RDW Coeff of Joellen 13.7 Plt Count 209 MPV 11.4 Immature Gran % (Auto) 0.500 Neut % (Auto) 78.6 H Lymph % (Auto) 11.4 L [place] % (Auto) 7.5 Eos % (Auto) 1.3 Baso % (Auto) 0.7 Absolute Neuts (auto) 9.6 H Absolute Lymphs (auto) 1.39 Nucleated RBC % 0 D-Dimer Quant (PE/DVT) 0.55 H* Sodium 140 Potassium 4.0 Chloride 110 H Carbon Dioxide 29.0 Anion Gap 1 L BUN 13 Creatinine 0.70 Estim Creat Clear Calc 79.96 Est GFR (MDRD) Af Amer 109 Est GFR (MDRD) Non-Af 90 BUN/Creatinine Ratio 18.4 Glucose 117 H Calcium 9.3 Troponin I High Sens 27 B-Natriuretic Peptide 6.2 Radiography Diagnostic Testing: Clinical Impression(s) from Imaging Studies Chest X-Ray 11/07/23 10:35 IMPRESSION: No acute thoracic pathology. Electronically Signed: Magdaleno Castañeda MD at 11:07 EST , Discharge Plan Triage Chief Complaint: Chest Other ED Provider: Michael An Dx/Rx/DC Orders Clinical Impression: COVID-19 Instructions: Coronavirus Disease 2019 (COVID-19): Overview Prescriptions: New Paxlovid 300 mg (150 mg x 2)-100 mg tablets,dose pack See Rx Instructions .ROUTE .COMPLEX Qty: 30 0RF Rx Instructions: take TWO 150 mg tablets of nirmatrelvir with ONE 100 mg tablet of ritonavir twice daily for 5 days No Action levothyroxine [Synthroid] 100 mcg tablet 100 mcg PO DAILY nortriptyline 50 mg capsule PO pantoprazole 40 mg tablet,delayed release (DR/EC) 40 mg PO DAILY budesonide-formoterol 80-4.5 mcg/actuation HFA aerosol inhaler inhalation albuterol sulfate 90 mcg/actuation HFA aerosol inhaler inhalation Stand Alone Forms: ED Work / School Excuse Primary Care Provider: Luciano Gonzalez Referrals: Luciano Gonzalez MD [Primary Care Provider] - Activity Restrictions/Additional Instructions: Thank you for trusting us with your care today! Please take Tylenol (2 pills, 650 mg), ibuprofen (2 pills, 400 mg) every 6 hours as needed for pain and fever control. Please take Paxlovid as prescribed. Please return to the emergency department if your symptoms change or worsen. Please follow with your primary care physician for further outpatient evaluation and management. Disposition Disposition: Home, Self Care
--- NOTE | 2023-11-07 10:13 | EKG12_ITS ---
Test Reason : PAIN Blood Pressure : / mmHG Vent. Rate : 109 BPM Atrial Rate : 109 BPM P-R Int : 188 ms QRS Dur : 066 ms QT Int : 330 ms P-R-T Axes : 072 026 062 degrees QTc Int : 444 ms Sinus tachycardia Possible Left atrial enlargement Low voltage QRS Cannot rule out Anteroseptal infarct (cited on or before 04-MAR-2023) Abnormal ECG Confirmed by Larry Ochoa ([id number]), editorial manager JEFFY NIELSEN ([id number]) on 11/08/2023 10:34:16 AM Referred By: Confirmed By:Larry Ochoa
[2023-11-07 10:31] VITALS: O2SAT 96
[2023-11-07 10:35] LABS: Absolute Lymphocyte Count 1.39 X10^3/uL (0.83-4.51); Absolute Neutrophil Count 9.6 X10^3/uL (2.0-7.7); Basophil# 0.08 X10^3/uL; Basophil% 0.7 % (0-1); Eosinophil# 0.16 X10^3/uL; Eosinophils% 1.3 % (0-5); Hematocrit 48.4 % (37-47); Hemoglobin 15.5 g/dL (12.0-15.0); Lymphocyte # 1.39 X10^3/ul (0.83-4.51); Lymphocyte % 11.4 % (19-41); Mean Corpuscular Hgb 28.9 pg (27.0-32.0); Mean Corpuscular Volume 90.1 fL (81-99); Mean Platelet Vol. 11.4 fl (6.2-12.0); Monocyte# 0.91 X10^3/uL; Monocyte% 7.5 % (0-10); NRBC Flagged by Analyzer 0 % (0-5); Neutrophil # 9.56 X10^3/uL (2.7-7.7); Neutrophil % 78.6 % (47-70); Platelet Count 209 K/mm3 (150-450); RBC Distribution Width CV 13.7 % (11.6-14.6); RBC Distribution Width SD 45.1 fl (35.1-43.9); Red Blood Count 5.37 M/mm3 (4.2-5.4); White Blood Count 12.2 K/mm3 (4.4-11.0)
--- NOTE | 2023-11-07 10:35 | RAD_ITS ---
STUDY: X-RAY CHEST REASON FOR EXAM: Female, 58 years old. Right-sided pain. TECHNIQUE: Frontal view of the chest COMPARISON: 08/28/2023 FINDINGS: The lungs are clear. There are no pleural effusions. There is no pneumothorax. The heart is normal in size. Again noted is fusion hardware in the cervical spine. RAD/Chest 1 View (Portable) IMPRESSION: No acute thoracic pathology. Electronically Signed: Magdaleno Castañeda MD at 11:07 EST ,
--- OUTSIDE RECORDS SUMMARY | 2023-11-07 10:38 | XMS RPT_ITS | CCD ---
Author Name Unknown Address [address] [place] [address] Organization [facility] Care Team Providers Care Draw Hand Name Role Phone LUCIANO GLORIA Primary Care Unavailable RENEA MAHAN Attending Unavailelli Gloria MD, Luciano Munroe Primary Care Provider [phone] RENEA MAHAN Referring UnavailLEDY Peterson Admitting Unavailable [...] 92 % Marta Morrison MD Work Phone: [facility] 05-25-2023 14:45-0400 Diastolic blood pressure 65 mm[Hg] Marta Morrison MD Work Phone: [facility] 05-25-2023 14:45-0400 Heart rate 93 /min Marta Morrison MD Work Phone: [facility] 05-25-2023 14:45-0400 Respiratory rate 12 /min Marta Morrison MD Work Phone: [facility] 05-25-2023 14:45-0400 Systolic blood pressure 138 mm[Hg] Marta Morrison MD Work Phone: [facility] 05-25-2023 14:30-0400 Body temperature 97.9 [degF] Marta Morrison MD Work Phone: [facility] 05-25-2023 10:29-0400 Body height 160 cm Marta Morrison MD Work Phone: [facility] 05-25-2023 10:29-0400 Body weight 61.24 kg Marta Morrison MD Work Phone: [facility] 05-05-2023 10:54-0400 Body height 160 cm Pacc 2 Work Phone: [facility] 05-05-2023 10:54-0400 Body weight 61.24 kg Pacc 2 Work Phone: [facility] 05-05-2023 10:54-0400 Diastolic blood pressure 82 mm[Hg] Pacc 2 Work Phone: [facility] 05-05-2023 10:54-0400 Heart rate 82 /min Pacc 2 Work Phone: [facility] 05-05-2023 10:54-0400 Respiratory rate 17 /min Pacc 2 Work Phone: [facility] 05-05-2023 10:54-0400 Systolic blood pressure 120 mm[Hg] Pacc 2 Work Phone: [facility] 03-31-2023 09:11-0400 Body height 160 cm Marta Morrison MD Work Phone: [facility] 03-31-2023 09:11-0400 Body weight 61.69 kg Marta Morrison MD Work Phone: [facility] 03-31-2023 09:11-0400 Diastolic blood pressure 82 mm[Hg] Marta Morrison MD Work Phone: [facility] 03-31-2023 09:11-0400 Heart rate 78 /min Marta Morrison MD Work Phone: [facility] 03-31-2023 09:11-0400 Systolic blood pressure 164 mm[Hg] Marta Morrison MD Work Phone: [facility] Encounters Encounter Date Encounter Type Care Provider Facility Start: 08-03-2023 End: 08-03-2023 ambulatory CONCETTA ARGUETA Facility:[facility] Start: 06-08-2023 End: 06-08-2023 ambulatory LUCIANO GLORIA Facility:[facility] Start: 06-08-2023 End: 06-08-2023 Patient encounter procedure Marta Morrison MD Work Phone: General Surgery Plan of Treatment Date Care Activity Detail Author Start: 05-31-2026 Diabetes Screening Diabetes Screening [facility] Start: 05-12-2026 Diabetes Screening Diabetes Screening [facility] Start: 03-06-2026 DIABETES SCREEN DIABETES SCREEN [facility] Start: 05-07-2023 Influenza vaccination [facility] Start: 05-05-2023 End: 07-05-2023 CBC W Auto Differential panel - Blood CBC + DIFF Lab Routine Tobacco use disorder Multiple gastric ulcers Biliary dyskinesia Hypothyroidism, unspecified type Pre-op evaluation Expected: 05/05/2023, Expires: 07/05/2023 [facility] Work Phone: Immunizations Immunization Date Immunization Notes Care Provider Lorraine ortiz 07-23-2014 influenza virus vacc ine, unspecified formulation Deborah Sahu PA-C Work Phone: [facility] Payers Date Payer Category Payer Unknown [id number] 2022 Unknown [employer] P[employer] [id number] 2022-Present [phone] [address] [place] [address] PPO [id number] Social History Date Type Detail Facility Start: 05-11-2021 End: 05-27-2023 Tobacco smoking status NHIS Smokes tobacco daily [facility] History of tobacco use Cigarette Smoker [facility] Start: 05-11-2021 End: 03-05-2023 Cigarettes smoked current (pack per day) - Reported 1 [facility] Start: 05-11-2021 End: 05-27-2023 Tobacco use and exposure Smokeless tobacco non-user [facility] Start: 03-31-2023 End: 06-04-2023 Alcohol intake Ex-drinker (finding) [facility] Start: 03-05-2023 End: 03-31-2023 Tobacco use panel [facility] National Score (1-10 0), lower number is lower risk 69 [facility] Start: 1965 Sex Assigned At Not on file [facility] Clinical Notes 03-05-2023 to 08-03-2023 Marta Morrison MD - 06/08/2023 9:36 AM EDT Note Date & Type Note Facility 08-03-2023 Note HNO ID: [id number] Author: Olga Harkins MD Service: ? Author [...] for everyday smoking, COPD, recently admitted to [facility] for shortness of breath and diagnosed [...] No significant exposure Silica: No significant exposure Cook: No significant exposure Mold: No significant exposure [...] REVIEW OF SYSTEM (more content not included)... [facility] 06-08-2023 Note HNO ID: [id number] Author: Marta Morrison MD Service: ? Author Type: Physician Type: Progress Notes Filed: 06/08/2023 9:45 AM Note Text: POST OP S/p lap liliana 05/25 HPI: was in er 2 days post op dx'd with pneumonia - sx from that much improved. Preop gi sx resolved, no c/o opain VITALS: [facility] 07/23/2008 MEDS: acetaminophen (TYLENOL) 325 mg tablet [...] necessary Marta Morrison MD 06/08/2023 9:37 AM [facility] 06-08-2023 History of Present illness Narrative POST [...] 06/08/2023 9:37 AM documented in this encounter [facility] 05-31-2023 Note HNO ID: [id number] Author: Concetta (Fireboat Operator)Cathie Service: Pharmacy Author Type: ? Type: Plan of Care Filed: 05/31/2023 12:46 PM Note Text: PHARMACY BEDSIDE DELIVERY SERVICE Patient Name: Katie Vasquez The marked outpatient medications were Filled at: [place] and delivered to the patient's bedside to [...] by: acetaminophen 325 mg tablet Cathie Blanco (Fireboat Operator) PAGER: [phone] May 31, 2023 12:45 PM [facility] 05-30-2023 Note HNO ID: [id number] Author: Zeny Bee MD Service: General Internal [...] -- 05/27/23 1745 activity - mobilize patient (wv,oh) VTE Prophylaxis: VTE prophylaxis appropriate SIGNATURE: Zeny Bee MD PATIENT NAME: Katie Vasquez [facility] 05-29-2023 Note HNO ID: [id number] Author: Zeny Bee MD Service: General Internal [...] -- 05/27/23 1745 activity - mobilize patient (wv,ks) VTE Prophylaxis: VTE prophylaxis appropriate SIGNATURE: Zeny Bee MD PATIENT NAME: Katie Vasquez [facility] 05-28-2023 Note HNO ID: [id number] Author: Jesus Ram MD Service: General Internal [...] -- 05/27/23 1745 activity - mobilize patient (wv,ks) VTE Prophylaxis: VTE prophylaxis appropriate SIGNATURE: Jesus Ram MD PATIENT NAME: Katie Vasquez [facility] 05-28-2023 Note HNO ID: [id number] Author: Madalyn Smart RN Service: Care Management Author Type: Registered Nurse Type: Care Mgt Initial Assessment Filed: 05/28/2023 10:23 AM Note Text: CARE MANAGEMENT: ASSESSMENT AND DISCHARGE PLAN SERVICE DATE: May 28, 2023 SERVICE TIME: 10:21 AM PCP: Luciano Gloria MD Primary Contact: Extended Emergency Contact Information Primary Emergency Contact: Rodolfo Vasquez Address: [id number] [place] [id number] Mobile Relation: Spouse Admission Status: Inpatient Insurance Provider: [employer] PPO Discharge Planning requested by: Per Department Practice Potential Transition Plans Home;Respiratory;To Be Determined Advance Directives Current Advance Directive: None Restoration Officer Attempted to Assist with AD Completion: Yes [...] Patient Goal(s): Be able to go home [place] [facility] Explained: Are you interested in bedside delivery of your medications? No, uses [facility], [place], [place] Discharge Planning Participant(s): Patient Patient/Family Comments: [...] 28, 2023 TIME: 10:21 AM CONTACT #: [phone] [facility] documented as of this encounter (statuses as of 06/09/2023) [facility]09-19-2023 NoteHNO ID: [id number] Author: Abiodun Sanz RN Service: ? Author Type: Registered Nurse Type: Nursing Progress Note Filed: 05/25/2023 1:14 PM Note Text: Anesthesia at bedside for assessment. Pain currently not under control.[facility]w74-[facility]-1520 NoteHNO ID: [id number] Author: Starla Aguilar APRN.BIG DATA PLATFORM ARCHITECT Service: Anesthesiology Author Type: Nurse Circular Sawyer Stone Type: Anesthesia Procedure Notes Filed: 05/25/2023 11:50 AM Note Text: ANESTHESIOLOGY PROCEDURE NOTE Airway General Information Procedure Start Time/Medication Administration: 05/25/2023 11:41 AM Patient location during procedure: OR Staffing Anesthesiologist: Andres Vega DO BIG DATA PLATFORM ARCHITECT: Starla Aguilar APRN.BIG DATA PLATFORM ARCHITECT Performed by: BIG DATA PLATFORM ARCHITECT Indications and Patient Condition Indications for airway [...] May 25, 2023 TIME: 11:49 AM CSN: [id number] Nurse Note* Abiodun Sanz RN - 05/25/2023 1:14 PM EDT Anesthesia at bedside for assessment. Pain currently not under control. documented in this encounter[facility] Surgical operation note* Brief Op Note - Marta Morrison MD - 05/25/2023 12:34 PM EDT BRIEF OPERATIVE / PROCEDURE NOTE LOG ID: [id number] SURGERY/PROCEDURE DATE: 05/25/2023 INCISION/PROCEDURE START TIME: 11:59 AM INCISION CLOSE/PROCEDURE END TIME: SURGEON(S)/PROCEDURALIST(S) AND JACK PRIZER(S): Surgeon(s) and Role: * Marta Morrison MD - Primary Physician Building Architectural Designer: Sadaf Urrutia PA-C SURGERY/PROCEDURE(S): Laparoscopic cholecystectomy with intraoperative cholangiograms ANESTHESIA: General FINDINGS: nl ioc ESTIMATED BLOOD LOSS: minimal SPECIMENS: 1 COMPLICATIONS: None CLOSURE TECHNIQUE: Primary PRE-OP/PRE-PROCEDURE DIAGNOSIS: biliary dyskinesia POST-OP/POST-PROCEDURE DIAGNOSIS: Same as Preop The assistant education director YEIMY/AYAZ was used as no other assistant education director such as resident, fellow, RN or other physicianavailable. Assistants role in surgery was assisting in exposure, and closure Dictated # [id number] SIGNATURE: Marta Morrison MD PATIENT NAME: Katie Vasquez DATE: May 25, 2023 TIME: 12:34 PM * Operative Report - Marta Morrison MD - 05/25/2023 12:00 AM EDT [facility] - Operative Report KATIE VASQUEZ : 1965 AGE: 58. SEX: F PATIENT TYPE: A HOSP SVC: [facility] LOCATION: [facility] ATTENDING PHYSICIAN: Marta Morrison M.D. CSN NUMBER: [id number] DATE OF SURGERY/PROCEDURE: 05/25/2023 INCISION/PROCEDURE START TIME: 11:59 a.m. INCISION CLOSE/PROCEDURE END TIME: 12:35 PM PREOPERATIVE DIAGNOSIS: Biliary dyskinesia. POSTOPERATIVE DIAGNOSIS: Biliary dyskinesia. During cholangiogram 3 runs were performed for 18 seconds with a total of 8.26 mGy. The assistance PA was used as no other assistant education director such as resident fellow, RN, or other physician was available. Building Architectural Designer's role in surgery was assisting in exposure and closure. SURGEON: Marta Morrison M.D. JACK PRIZER: YEIMY Galeas. SURGERY/PROCEDURE: Laparoscopic cholecystectomy with intraoperative [...] Therefore removed the epigastric trocar. 0 Maxon dufuie-ll-vtnxi suture used to reapproximatethe fascia with good airtight closure under direct vision using the state pilot guide. Remaining trocars were removed. CO2 expelled out of the abdomen. 5-0 Vicryl subcuticular stitch used to reapproximate the skin. Skin glue applied. Patient was awakened from anesthesia without difficulty and taken to PACU in stable condition. Marta Morrison M.D. SMG:[id number] /[id number] documented in this encounterMer[facility]09[facility] History and physical note * Marta Morrison [...] visit. Either the patient or their legal bilingual call center representative has been informed of the risks and benefits of and alternatives to treatment through a remote evaluation and consents to proceed with the evaluation remotely. This is a virtual visit using [employer] video visit. It required patient-provider interaction for [...] fevers. Neurological: No history of TIA's, stroke, BUSINESS PROCESS EXPERT tumor, impaired sensorium, hemiplegia, paraplegia orquadraplegia. No neurological symptoms or problems. Respiratory: Positive for: tobacco use. Negative for: asthma, COPD, current cough, dyspnea, orthopnea, pneumonia within 6 weeks and URI < 2 weeks. Cardiovascular: No history of HTN requiring medication, no history of angina, CHF, MN, cardiac surgery or stents. Denies rest pain, gangrene or revascularization/amputation for PVD. No history of cardiovascular symptoms or problems. GI: See HPI. Gastric ulcers : No history of dysuria, frequency or incontinence, stones or chronic kidney disease. No difficulty urinating, nocturia > 1 time per night or hematuria. LITIGATION ATTORNEY ASSOCIATE: Negative for abnormal vaginal bleeding, abnormal vaginal [...] 352 QTC Calculation (Bazett) 437 Calculated P Argyle 81 Calculated R Argyle 65 Calculated T Argyle 73 Impression NORMAL SINUS RHYTHM ANTEROSEPTAL INFARCT , AGE UNDETERMINED ABNORMAL ECG NO PREVIOUS ECGS AVAILABLE Confirmed by MD ANKIT, SAMANTHA ([id number]) on 03/09/2023 10:02:57 PM No results found for this or any previous visit (from the past 06500 hour(s)). Assessment Patient has the following medical [...] large neck Non-male patient STOP-Bang Score: 2 [id number] Score: [id number] Score: 0 ANESTHESIA FINDINGS: Intubation History: No [...] 10:43 AM PAGER/CONTACT #: documented in this encounterMer[facility] Hospital09-[facility]23 Miscellaneous Notes* Telephone Encounter - Pati Mackenzie OCCA - 05/24/2023 11:13 AM EDT Received from [employer], scanned into patient chart for review. YURIDIA [...] PA-C. Letter faxed to DR Crow at [phone] per patients request. Confirmation received. * Telephone Encounter - Chelsey Aguillon MA - 05/17/2023 2:55 PM EDT Printed and faxed Chelsey Aguillon MA * Telephone Encounter - Deborah Sahu PA-C - 05/05/2023 1:14 PM EDT Karina, Could you please print and fax the letter in this patient's chart and send to Dr. Crow (Attn: Kaylee) to fax #: [phone]. Please let me know if they respond to you instead of the [place] office listed on the fax. I will try to update the letter to respond to [facility] office. Thank you! Deborah documented in this encounterMercy Hospital08-30-2023 Instructions* Patient Instructions* Deborah Sahu PA-C - 05/05/2023 11:10 AM EDT PATIENT PREOPERATIVE INSTRUCTIONS Marta Morrison MD has scheduled you for your procedure at this surgery center: [facility]: [phone] -- [address] [facility] [address]. Arrival Time for Surgery: - The Surgery [...] Procedures: - YOU MUST HAVE A RESPONSIBLE X RAY DEVELOPER TAKE YOU HOME. A SURVEY WORKER OR BENEFIT AUTHORIZER CANNOT BE MADE A RESPONSIBLE X RAY DEVELOPER. - We recommend that a responsible person [...] Advance Directive, please fax a copy to [phone] or email to for it to be [...] day. Deborah Sahu PA-C documented in this encounterMercy Hospital08-30-2023 History and physical note * Deborah Sahu [...] visit. Either the patient or their legal bilingual call center representative has been informed of the risks and benefits of and alternatives to treatment through a remote evaluation and consents to proceed with the evaluation remotely. This is a virtual visit using [employer] video visit. It required patient-provider interaction for [...] fevers. Neurological: No history of TIA's, stroke, BUSINESS PROCESS EXPERT tumor, impaired sensorium, hemiplegia, paraplegia orquadraplegia. No neurological symptoms or problems. Respiratory: Positive for: tobacco use. Negative for: asthma, COPD, current cough, dyspnea, orthopnea, pneumonia within 6 weeks and URI < 2 weeks. Cardiovascular: No history of HTN requiring medication, no history of angina, CHF, MN, cardiac surgery or stents. Denies rest pain, gangrene or revascularization/amputation for PVD. No history of cardiovascular symptoms or problems. GI: See HPI. Gastric ulcers : No history of dysuria, frequency or incontinence, stones or chronic kidney disease. No difficulty urinating, nocturia > 1 time per night or hematuria. LITIGATION ATTORNEY ASSOCIATE: Negative for abnormal vaginal bleeding, abnormal vaginal [...] 352 QTC Calculation (Bazett) 437 Calculated P Argyle 81 Calculated R Argyle 65 Calculated T Argyle 73 Impression NORMAL SINUS RHYTHM ANTEROSEPTAL INFARCT , AGE UNDETERMINED ABNORMAL ECG NO PREVIOUS ECGS AVAILABLE Confirmed by MD ANKIT, SAMANTHA ([id number]) on 03/09/2023 10:02:57 PM No results found for this or any previous visit (from the past 13670 hour(s)). Assessment Patient has the following medical [...] large neck Non-male patient STOP-Bang Score: 2 [id number] Score: [id number] Score: 0 ANESTHESIA FINDINGS: Intubation History: No [...] 10:43 AM PAGER/CONTACT #: documented in this encounterMercy Hospital07-26-2023 NoteHNO ID: [id number] Author: Marta Morrison MD Service: ? Author [...] times and right back. Was seen in [place] ED and dx['s with bruised ribs despite no trauma, following day went to [place] ER was admitted 03/05-03/06. Had ct and [...] EF 32% Marta Morrison MD 03/31/2023 1:39 [facility]07-26-2023 History of Present illness Narrative * Marta [...] sx until able to have surgery HPI: Katei Vasquez is a 58 year old female,She presents for the evaluation of biliary dyskinesia,pt reports approx 1 year h/o intermittent, ruq pressure with occ pain. Now constant, no nausea,+ bloating and gassiness, occ loose stool, pain radiates to luq at times and right back. Was seen in [place] ED and dx['s with bruised ribs despite no trauma, following day went to [place] ER was admitted 03/05-03/06. Had ct and [...] MD 03/31/2023 1:39 PM documented in this encounterMercy Hospital07-24-2023 NoteHNO ID: [id number] Author: Larry Doe CT Service: Nuclear Medicine [...] 08:43 PATIENT DISCHARGED TO: Ambulatory patient, left [place] department area. A Diagnostic radioactive procedure has taken place, with no further precautions necessary other than routine body substance precautions. More information regarding radiation safety can be found using this link: [email or web address] SIGNATURE: JAN Nichols PATIENT NAME: Katie Vasquez DATE: March 29, 2023 TIME: 9:24 AM PAGER/CONTACT #:[facility]Vhasdvqw95-20-1764 NoteHNO ID: [id number] Author: Manisha Montero MD Service: Hospital Medicine Author Type: Physician Type: Progress Notes Filed: 03/06/2023 6:50 AM Note Text: DEPARTMENT OF HOSPITAL MEDICINE PROGRESS NOTE SERVICE DATE: 03/05/2023 SERVICE TIME: 3:26 PM Hospital Medicine/Primary Attending: Talia Morin DO NIGHT AND WEEKEND COVERAGE: KENAI COVERAGE: Days: [phone], please page attending physician. Nights: [phone], please page [place] [facility] Night coverage pager [phone]. Subjective INTERVAL HPI: Patient admitted with RUQ [...] and Airways Line Duration Peripheral 03/05/23 0100 [facility] Short Left Antecubital 20 Gauge 1 [...] Prophylaxis/Anticoagulants 03/05/23 0545 activity - mobilize patient (wv,ks) VTE Prophylaxis: VTE prophylaxis appropriate Disposition: Home Plan of care discussed with Patient and RN Plan communicated to: N/A SIGNATURE: Manisha Montero MD PATIENT NAME: Katie Vasquez DATE: March 05, 2023 TIME: 5:26 [facility] HospitalEmqfwefk17-42-9509 History of Past illness Narrative* Problem Noted Date Diagnosed Date Resolved Date Abdominal pain 03/05/2023 03/31/2023 documented as of this encounter (statuses as of 04/12/2023) [facility] of Past illness Narrative* Problem Noted Date Diagnosed Date Resolved Date Abdominal pain 03/05/2023 03/31/2023 Chest pain, unspecified 07/30/200804/08 Overview: Rec Ibuprofen 600 mg three times a day for R chest wall pain in 07-14 CXR negative at [facility] in 07-14 documented as of this encounter (statuses as of 05/05/2023) [facility] of Past illness Narrative* Problem Noted Date Diagnosed Date Resolved Date Abdominal pain 03/05/2023 03/31/2023 Chest pain, unspecified 07/30/200804/08 Overview: Rec Ibuprofen 600 mg three times a day for R chest wall pain in 07-14 CXR negative at [facility] in 07-14 documented as of this encounter (statuses as of 05/24/2023) [facility] of Past illness Narrative* Problem Noted Date Diagnosed Date Resolved Date Abdominal pain 03/05/2023 03/31/2023 Chest pain, unspecified 07/30/200804/08 Overview: Rec Ibuprofen 600 mg three times a day for R chest wall pain in 07-14 CXR negative at [facility] in 07-14 documented as of this encounter (statuses as of 05/26/2023) [facility]* Diagnosis Abdominal pain, right upper quadrant- Primary Epigastric abdominal pain Abdominal pain, epigastric Biliary dyskinesia Other specified disorder of gallbladder documented [facility] this encounter [facility]* Diagnosis Pre-op evaluation- Primary Preoperative examination, unspecified Tobacco use disorder Multiple gastric ulcers Biliary dyskinesia Other specified disorder of gallbladder Hypothyroidism, unspecified type Biliary dyskinesia Other specified disorder of gallbladder [facility] Diagnosis Biliary dyskinesia- Primary Other specified disorder of gallbladder documented [facility] this encounter [facility]* Diagnosis Biliary dyskinesia- Primary Other specified disorder of gallbladder [facility] Summary Purpose Family History No Family History [...] CREATED AUTHOR AUTHOR'S ORGANANA LUISA ATION 06/07/2023 [facility] DATE CREATED AUTHOR AUTHOR'S ORGANIZ ATION 08/05/2023 [facility] Source Comments (unrecognize d section and content) In the event this informatio n is protected by the Federal Confidentiality of Alcohol and Drug Abuse Patient Records regulations: The Federal rules restrict any use of the information to criminally investigate or prosecute any alcohol or drug abuse patient.[facility] HospitalIn the event this information is protected by the Federal Confidentiality of Alcohol and Drug Abuse Patient Records regulations: The Federal rules restrict any use of the information to criminally investigate or prosecute any alcohol or drug abuse patient.[facility] HospitalIn the event this information is protected by the Federal Confidentiality of Alcohol and Drug Abuse Patient Records regulations: The Federal rules restrict any use of the information to criminally investigate or prosecute any alcohol or drug abuse patient.[facility] HospitalIn the event this information is protected by the Federal Confidentiality of Alcohol and Drug Abuse Patient Records regulations: The Federal rules restrict any use of the information to criminally investigate or prosecute any alcohol or drug abuse patient.[facility] HospitalIn the event this information is protected by the Federal Confidentiality of Alcohol and Drug Abuse Patient Records regulations: The Federal rules restrict any use of the information to criminally investigate or prosecute any alcohol or drug abuse patient.[facility] Reason for Visit (unrecogniz ed section and content) Reason Comments Preparations For Surgery Specialty Diagnoses / Procedures Referred By Arnulfo santiago Referred To Contact Diagnoses Biliary dyskinesia Procedures LAPS SURG CHOLECYSTECTOMY W/CHOLANGIOGRAPHY LAPAROSCOPIC CHOLECYSTECTOMY WITH GRAMS [facility] [address] [place] [address] Referral ID Status Reason Start Date Expiration Date Visits Re quested Visits Authorized [id number] 1 1 Reason Comments Post-Op Visit 05/25 lap liliana Care Teams (unrecognized sec tion and content) Draw Hand Relationship Specialty Start Date End Date Luciano Gloria MD PCP - General Family Medicine 10/28/15 Draw Hand Relationship Specialty Start Date End Date Luciano Gloria MD PCP - General Family Medicine 10/28/15 Draw Hand Relationship Specialty Start Date End Date Luciano Gloria MD PCP - General Family Medicine 10/28/15 Draw Hand Relationship Specialty Start Date End Date Luciano [...] BE BASED ON THE PRIMARY CLINICAL RECORDS. [employer] provides no warranty or guarantee of the accuracy or completeness of information in this document.
[2023-11-07] MEDS: 0.9% Normal Saline (1000mL) 1,000 ML 999 ML IV (10:48)
[2023-11-07] MEDS: Acetaminophen/Codeine #3 Tablet 1 TABLET PO (10:48)
[2023-11-07] MEDS: Ketorolac 15 MG/ML Vial IV (10:49)
[2023-11-07 10:53] LABS: Anion Gap 1 (5-15); BUN 13 mg/dL (7-18); BUN/Creat Ratio 18.4 RATIO (10-20); Calcium,Total 9.3 mg/dL (8.5-10.1); Chloride 110 mmol/L (98-107); EST Glomerular Filtration Rate 90 mL/min (>60); Est Glom Filt Rate - Afr Amer 109 mL/min (>60); Estimated Creatinine Clearance 79.96 ml/min; Glucose 117 mg/dL (74-106); Sodium Level 140 mmol/L (136-145); Troponin-I HS 27 pg/mL (3.0-54.0)
[2023-11-07 11:02] LABS: BNP,B-Type NATRIURETIC PEPTIDE 6.2 pg/mL (0-100)
[2023-11-07 11:19] LABS: D-Dimer Quantitative (DVT/PE) 0.55 FEU/ug/m (0.27-0.49)
[2023-11-07 11:42] VITALS: BP 143/82; PULSE 103; RESP 17; TEMP 36.4; O2SAT 96
--- NOTE | 2023-11-07 11:46 | EKG12_ITS ---
Test Reason : cp Blood Pressure : / mmHG Vent. Rate : 098 BPM Atrial Rate : 098 BPM P-R Int : 186 ms QRS Dur : 066 ms QT Int : 342 ms P-R-T Axes : 075 041 065 degrees QTc Int : 436 ms ACCELERATED JUNCTIONAL RHYTHM WITH NSR WITH SINUS ARRHYTHMIA Low voltage QRS Cannot rule out Anteroseptal infarct , age undetermined Abnormal ECG Confirmed by ISAIAH KABA, KARI ([id number]), web editor JEFFY NIELSEN ([id number]) on 11/08/2023 10:24:18 AM Referred By: Confirmed By:KHLOE COLON MD
[2023-11-07] MEDS: Aspirin 81 MG TAB.CHEW PO (11:55)
[2023-11-07 13:07] LABS: Troponin-I HS 24 pg/mL (3.0-54.0)
== END 2023-11-07 13:43 | disposition home or self-care (01) ==
PROVIDERS: Emergency Provider Emergency Medicine; PCP Family Medicine; Visit Provider Emergency Medicine
DX: U07.1 COVID-19 (principal); E03.9 Hypothyroidism, unspecified; S20.219A Contusion of unspecified front wall of thorax, initial encounter; Z79.899 Other long term (current) drug therapy; Z90.49 Acquired absence of other specified parts of digestive tract; F17.210 Nicotine dependence, cigarettes, uncomplicated; R06.02 Shortness of breath
CPT/HCPCS: 71045; 80048; 83880; 84484; 85025; 85379; 93005; 96361; 96374; 99284; J7030; A4216

== ENCOUNTER → 2023-11-26 | Outpatient (CLI) | payer BC, SELFPAY ==
--- NOTE | 2023-11-26 12:03 | CT_ITS ---
STUDY: CTA CHEST REASON FOR EXAM: Female, 58 years old. Chest pain--possible PE RADIATION DOSAGE (If Supplied By Facility): CTDIvol = ( 7.69 ) mGy, DLP = ( 164.97 ) mGycm TECHNIQUE: The examination was performed with the intravenous administration of IV 100mL Isovue-370. Post-processing of the angiographic images was performed, with multiplanar reformation and 3D reconstruction. Individualized dose optimization techniques were used for this CT. COMPARISON: Comparison is made with prior chest radiograph dated November 07, 2023. FINDINGS: Normal enhancement of the main pulmonary artery and right and left pulmonary arteries. Normal enhancement of the bilateral peripheral pulmonary arteries. There is no demonstrated pulmonary embolism. Normal thoracic aorta and visualized great vessels. There is no demonstrated aortic dissection. Normal heart and pericardium. Coronary calcification not seen. Normal mediastinum. Normal hilar regions. Normal visualized trachea and bronchi. Hyperinflation. Emphysematous changes with centrilobular changes more prominent in the upper lobes. Normal pleura. Normal chest wall structures. Normal osseous structures. There is a 1.1 cm x 0.9 cm cyst in the medial aspect of the left lobe of liver as well as a 8 mm cyst in the medial edge of the left lobe of the liver. CT/CTA Chest W/WO Contrast IMPRESSION: No evidence of pulmonary embolism. Hyperinflation. Emphysematous changes. Electronically Signed: Rogelio Rogers MD at 13:28 EDT ,
== END | disposition home or self-care (01) ==
LOC: CT 11:55
PROVIDERS: PCP Family Medicine; Referring Provider Family Medicine; Visit Provider Family Medicine
DX: R07.9 Chest pain, unspecified (principal)
CPT/HCPCS: 71275; Q9967

== ENCOUNTER → 2024-01-20 | Outpatient (CLI) | payer OTHER, SELFPAY ==
--- NOTE | 2024-01-20 16:00 | RAD_ITS ---
STUDY: X-RAY - LEFT KNEE REASON FOR EXAM: Female, 58 years old. KNEE PAIN TECHNIQUE: 4 view(s) of the knee. COMPARISON: None. FINDINGS: Normal visualized distal femur. Normal visualized proximal tibia and fibula. Normal proximal tibiofibular articulation. Narrowed medial femorotibial compartment. Normal lateral femorotibial compartment. Narrowed lateral compartment of the patellofemoral articulation. The soft tissue structures are unremarkable. RAD/Knee 4 or More Views IMPRESSION: Degenerative changes. No acute fracture or other significant bony pathology Electronically Signed: Jay Mcneil MD at 16:11 EDT Reading Location ID and State: [address] [place] [address] Tel , Service support ,
== END | disposition home or self-care (01) ==
LOC: MTRAD 15:50
PROVIDERS: PCP Family Medicine; Referring Provider Family Medicine; Visit Provider Family Medicine
DX: M25.569 Pain in unspecified knee (principal)
CPT/HCPCS: 73564

== ENCOUNTER → 2024-02-07 | Outpatient (CLI) | payer OTHER, SELFPAY ==
[2024-02-07 10:35] LABS: Absolute Lymphocyte Count 2.13 X10^3/uL (0.83-4.51); Absolute Neutrophil Count 4.9 X10^3/uL (2.0-7.7); Basophil# 0.05 X10^3/uL; Basophil% 0.6 % (0-1); Eosinophil# 0.17 X10^3/uL; Eosinophils% 2.1 % (0-5); Hematocrit 47.9 % (37-47); Hemoglobin 15.5 g/dL (12.0-15.0); Lymphocyte # 2.13 X10^3/ul (0.83-4.51); Lymphocyte % 26.8 % (19-41); Mean Corp Hgb Conc 32.4 g/dL (32-36); Mean Corpuscular Hgb 29.7 pg (27.0-32.0); Mean Corpuscular Volume 91.8 fL (81-99); Monocyte# 0.65 X10^3/uL; Monocyte% 8.2 % (0-10); NRBC Flagged by Analyzer 0 % (0-5); Neutrophil # 4.92 X10^3/uL (2.7-7.7); Platelet Count 207 K/mm3 (150-450); RBC Distribution Width SD 47.4 fl (35.1-43.9); Red Blood Count 5.22 M/mm3 (4.2-5.4); White Blood Count 7.9 K/mm3 (4.4-11.0)
[2024-02-07 10:52] LABS: Anion Gap 4 (5-15); BUN 14 mg/dL (7-18); BUN/Creat Ratio 17.7 RATIO (10-20); Chloride 107 mmol/L (98-107); Creatinine, Serum 0.79 mg/dL (0.55-1.02); EST Glomerular Filtration Rate 79 mL/min (>60); Est Glom Filt Rate - Afr Amer 95 mL/min (>60); Glucose 111 mg/dL (74-106); Sodium Level 139 mmol/L (136-145); Uric Acid 4.7 mg/dL (2.6-6.0)
== END | disposition home or self-care (01) ==
PROVIDERS: PCP Family Medicine; Referring Provider Family Medicine; Visit Provider Family Medicine
DX: M25.569 Pain in unspecified knee (principal)
CPT/HCPCS: 36415; 80048; 84550; 85025